=== PATIENT | male | born 1930 | race Caucasian/White ===

== ENCOUNTER 2018-02-27 10:22 | Inpatient (IN) ==
--- NOTE | 2018-02-27 10:44 | ED ---
HPI General Chief complaint: Respiratory Symptoms Stated complaint: Dr Sent/Sob Time Seen by Provider: 02/27/18 10:41 Source: patient and family Mode of arrival: ambulatory Limitations: no limitations History of Present Illness HPI narrative: 88-year-old male with history of CAD, CABG, hypertension, CHF, sent in from the [place] clinic for evaluation of shortness of breath and worsening bilateral lower extremity edema. Symptoms have been progressing over the last 2 weeks, worse today. Patient feels short of breath at rest, worse with exertion. He is also having orthopnea and complains of fullness to his abdomen. He denies chest pain. He has had a cough productive of yellowish sputum. No hemoptysis. He is unsure if he has had a fever. Related Data Home Medications Medication Instructions Recorded Confirmed aspirin 81 mg PO DAILY 02/27/18 02/27/18 brimonidine 1 drp OPHTHALMIC (EYE) BID 02/27/18 02/27/18 carvedilol 6.25 mg PO BID 02/27/18 02/27/18 ferrous sulfate 325 mg PO DAILY 02/27/18 02/27/18 finasteride 5 mg PO DAILY 02/27/18 02/27/18 furosemide 40 mg PO DAILY 02/27/18 02/27/18 latanoprost 1 drp OPHTHALMIC (EYE) QPM 02/27/18 02/27/18 [id number]-lycopen-lutein 1 tab PO DAILY 02/27/18 02/27/18 [Centrum Silver Men] potassium chloride 10 meq PO DAILY 02/27/18 02/27/18 potassium gluconate 550 mg PO DAILY 02/27/18 02/27/18 simvastatin 80 mg PO QPM 02/27/18 02/27/18 tamsulosin 0.4 mg PO DAILY 02/27/18 02/27/18 Allergies Allergy/AdvReac Type Severity Reaction Status Date / Time lisinopril [From Zestril] Allergy Swelling Verified 02/27/18 10:45 Penicillins Allergy Hives Verified 02/27/18 10:29 Review of Systems ROS: all other systems reviewed are negative [facility] Medical History Medical History CAD (coronary artery disease) (Acute) CHF (congestive heart failure) (Acute) Surgical History Surgical History H/O: hemorrhoidectomy (Acute) History of prostate surgery (Acute) Hx of cardiac cath (Acute) S/P CABG x 4 (Acute) S/P wrist surgery (Acute) Social History Social History Substance History: No History of Abuse Second Hand Smoke Exposure: No Smoking Status: Never smoker How Often Do You Have a Drink Containing Alcohol: Never Recent Travel in [facility] within the Last 8 Weeks: No Recent Out of Country Travel within the Last 8 Weeks: No Exam Narrative Exam Narrative: GENERAL: Well-developed, well-nourished, awake, alert, no apparent distress. SKIN: Focused skin assessment warm/dry. Healed midline/vertical chest surgical scar from CABG with keloid. There is also a horizontal scar just inferior to the scar that is well-healed. HEAD: Atraumatic. Normocephalic. EYES: Pupils equal and round. No scleral icterus. No injection or drainage. ENT: No nasal bleeding or discharge. Mucous membranes pink and moist. NECK: Trachea midline. No JVD. CARDIOVASCULAR: Regular rate and rhythm. RESPIRATORY: No accessory muscle use. Clear to auscultation. Breath sounds equal bilaterally. GASTROINTESTINAL: Abdomen soft, non-tender, nondistended. MUSCULOSKELETAL: No obvious deformities. No clubbing. No cyanosis. Moderate bilateral lower extremity edema from foot to knee. NEUROLOGICAL: Awake and alert. No obvious cranial nerve deficits. Motor grossly within normal limits. Normal speech. PSYCHIATRIC: Appropriate mood and affect; insight and judgment normal. Course Initial Documented Vital Signs Temperature 97.3 F L 02/27/18 10:27 Pulse Rate 74 02/27/18 10:27 Respiratory Rate 20 02/27/18 10:27 Blood Pressure 106/51 L 02/27/18 10:27 Pulse Oximetry 95 02/27/18 10:27 Last Documented Vital Signs Temperature 97.3 F L 02/27/18 10:27 Pulse Rate 64 02/27/18 11:30 Respiratory Rate 16 02/27/18 11:30 Blood Pressure 142/94 H 02/27/18 11:30 Pulse Oximetry 98 02/27/18 11:30 Medical Decision Making MDM Narrative Medical decision making narrative: Vital signs reviewed. CBC shows slightly elevated MCV. CMP is remarkable for slight renal insufficiency. His LFTs are also slightly elevated, likely secondary to hepatic congestion from CHF. Troponin is 0.04. CK-MB is 349. BNP is 1458. Chest x-ray: CONCLUSION: Moderate cardiomegaly with no evidence of pulmonary edema. While on the monitor the patient's heart rate fluctuates between the 20s to the 60s. His EKG shows A. fib with slow ventricular response with a rate of 56 with a variant conduction. Patient is unaware of a previous diagnosis of atrial fibrillation. The patient' s son is here and tells me that he has been weaker than usual. This weakness is generalized. He also becomes very short of breath on exertion. Patient's A. fib with slow RVR as well as history of CHF are the most likely causes for his symptoms on presentation today. He will be given a dose of IV Lasix 40 mg and will be admitted for further treatment and evaluation and likely cardiology assessment. He is amenable to this plan. Case discussed with the medical residents. The patient will be admitted to their service under Dr. Castaneda. Medical Screen Exam Complete: Yes Emergency Medical Condition: Yes Differential Diagnosis Differential Diagnosis: CHF/pulmonary edema, pneumonia, PE, pneumothorax, ACS, Lab Data Result diagrams: 02/27/18 10:45 02/27/18 10:45 Lab Results 02/27/18 02/27/18 02/27/18 Range/Units 10:45 10:45 10:45 WBC 5.5 (4.0-11.0) th/mm3 RBC 4.84 (4.50-5.90) mil/mm3 Hgb 16.7 (13.0-17.0) gm/dL Hct 49.4 (39.0-51.0) % MCV 102.0 H (80.0-100.0) fL MCH 34.4 H (27.0-34.0) pg MCHC 33.8 (32.0-36.0) % RDW 16.9 (11.6-17.2) % Plt Count 91 L (150-450) th/mm3 MPV 10.6 (7.0-11.0) fL Prelim Diff (Auto) Slide review pending Neut % (Auto) 75.6 H (16.0-70.0) % Lymph % (Auto) 14.1 (9.0-44.0) % Holt % (Auto) 7.8 (0.0-8.0) % Eos % (Auto) 1.7 (0.0-4.0) % Baso % (Auto) 0.8 (0.0-2.0) % Neut # (Auto) 4.2 (1.8-7.7) th/mm3 Lymph # (Auto) 0.8 L (1.0-4.8) th/mm3 Holt # (Auto) 0.4 (0.0-0.9) th/mm3 Eos # (Auto) 0.1 (0.0-0.4) th/mm3 Baso # (Auto) 0.0 (0.0-0.2) th/mm3 Differential Comment . PT 14.0 H (9.8-11.6) sec INR 1.4 Ratio APTT 30.7 (23.4-31.7) sec Sodium 136 (136-145) meq/L Potassium 3.6 (3.5-5.1) meq/L Chloride 101 (98-107) meq/L Carbon Dioxide 26.4 (21.0-32.0) meq/L Anion Gap 9 (5-15) meq/L BUN 27 H (7-18) mg/dL Creatinine 1.61 H (0.60-1.30) mg/dL Estimated GFR 41 L (>89) mL/min Random Glucose 119 H (74-106) mg/dL Calcium 8.5 (8.5-10.1) mg/dL Total Bilirubin 1.9 H (0.2-1.0) mg/dL AST 64 H (15-37) U/L ALT 49 (12-78) U/L Alkaline Phosphatase 230 H (45-117) U/L Total Creatine Kinase 349 H (39-308) U/L CK-MB (CK-2) 7.3 H (0.5-3.6) ng/mL CK-MB (CK-2) % 2.1 (0.0-4.0) % Troponin I 0.04 (0.02-0.05) ng/mL B-Natriuretic Peptide (0-100) pg/mL Total Protein 7.5 (6.4-8.2) g/dL Albumin 3.7 (3.4-5.0) g/dL Lipase 145 (73-393) U/L 02/27/18 Range/Units 10:45 WBC (4.0-11.0) th/mm3 RBC (4.50-5.90) mil/mm3 Hgb (13.0-17.0) gm/dL Hct (39.0-51.0) % MCV (80.0-100.0) fL MCH (27.0-34.0) pg MCHC (32.0-36.0) % RDW (11.6-17.2) % Plt Count (150-450) th/mm3 MPV (7.0-11.0) fL Prelim Diff (Auto) Neut % (Auto) (16.0-70.0) % Lymph % (Auto) (9.0-44.0) % Holt % (Auto) (0.0-8.0) % Eos % (Auto) (0.0-4.0) % Baso % (Auto) (0.0-2.0) % Neut # (Auto) (1.8-7.7) th/mm3 Lymph # (Auto) (1.0-4.8) th/mm3 Holt # (Auto) (0.0-0.9) th/mm3 Eos # (Auto) (0.0-0.4) th/mm3 Baso # (Auto) (0.0-0.2) th/mm3 Differential Comment PT (9.8-11.6) sec INR Ratio APTT (23.4-31.7) sec Sodium (136-145) meq/L Potassium (3.5-5.1) meq/L Chloride (98-107) meq/L Carbon Dioxide (21.0-32.0) meq/L Anion Gap (5-15) meq/L BUN (7-18) mg/dL Creatinine (0.60-1.30) mg/dL Estimated GFR (>89) mL/min Random Glucose (74-106) mg/dL Calcium (8.5-10.1) mg/dL Total Bilirubin (0.2-1.0) mg/dL AST (15-37) U/L ALT (12-78) U/L Alkaline Phosphatase (45-117) U/L Total Creatine Kinase (39-308) U/L CK-MB (CK-2) (0.5-3.6) ng/mL CK-MB (CK-2) % (0.0-4.0) % Troponin I (0.02-0.05) ng/mL B-Natriuretic Peptide 1438 H (0-100) pg/mL Total Protein (6.4-8.2) g/dL Albumin (3.4-5.0) g/dL Lipase (73-393) U/L Imaging Data Radiologist's impression: Chest X-Ray 02/27/18 10:41 CONCLUSION: Moderate cardiomegaly with no evidence of pulmonary edema. ECG Data Attestation: I personally reviewed and interpreted this ECG as follows: (A. fib , rate 56, aberrant conduction, intraventricular conduction delay, no acute ischemic abnormalities.) Discharge Plan Discharge Disposition Patient Disposition: ED Admit(ED Internal Use Only) Discharge Condition Condition: Stable Discharge Order Discharge Orders: ED Use Only Admit Order (Routine); Ordered 02/27/18 Ordered By: Michael Pierre Discharge Details Diagnosis: CHF exacerbation, Atrial fibrillation with slow ventricular response Physicians Team ED Provider: Michael Pierre Rxs /Orders / Referrals /Forms Prescriptions: No Action furosemide 40 mg Tablet 40 mg PO DAILY RF: 0 latanoprost 0.005 % Drops 1 drp OPHTHALMIC (EYE) QPM RF: 0 carvedilol 6.25 mg Tablet 6.25 mg PO BID RF: 0 simvastatin 80 mg Tablet 80 mg PO QPM RF: 0 brimonidine 0.2 % Drops 1 drp OPHTHALMIC (EYE) BID RF: 0 finasteride 5 mg Tablet 5 mg PO DAILY RF: 0 tamsulosin 0.4 mg Capsule 0.4 mg PO DAILY RF: 0 ferrous sulfate 325 mg (65 mg iron) Tablet 325 mg PO DAILY RF: 0 aspirin 81 mg Tablet,Chewable 81 mg PO DAILY RF: 0 potassium gluconate 550 mg (90 mg) Tablet 550 mg PO DAILY RF: 0 [id number]-WU-lycopen-lutein [Centrum Silver Men] 300-600-300 mcg Tablet 1 tab PO DAILY RF: 0 potassium chloride 10 mEq Capsule, Extended Release 10 meq PO DAILY RF: 0 Status ED Status: With Doctor
--- NOTE | 2018-02-27 11:17 | XR ---
EXAM DATE: 02/27/2018 11:13 AM EST AGE/SEX: 88 years / Male INDICATIONS: Short of breath, fluid retention in abdomen and lower legs. CLINICAL DATA: This is the patient's initial encounter. Patient reports that signs and symptoms have been present for 1 week and indicates a pain score of 4/10. MEDICAL/SURGICAL HISTORY: . CHF CABG. COMPARISON: No prior exams available for comparison. FINDINGS: A single AP erect portable view of the chest was obtained and demonstrates the patient is status post median sternotomy. Moderate cardiomegaly is noted with no confluent infiltrates or evidence of pulmo nary edema. Atherosclerotic changes are present in the aorta with calcification. There is no effusion . The bony thorax is otherwise intact with overlying electrocardiogram leads. CONCLUSION: Moderate cardiomegaly with no evidence of pulmonary edema. Electronically signed by: Gal Curry MD 02/27/2018 11:16 AM EST
[2018-02-27 11:32] LABS: Baso % (Auto) 0.8 % (0.0-2.0); Eos # (Auto) 0.1 th/mm3 (0.0-0.4); Eos % (Auto) 1.7 % (0.0-4.0); Hematocrit 49.4 % (39.0-51.0); Hemoglobin 16.7 gm/dL (13.0-17.0); Lymph # (Auto) 0.8 th/mm3 (1.0-4.8); Lymph % (Auto) 14.1 % (9.0-44.0); Mean Corpuscular HGB Conc 33.8 % (32.0-36.0); Mean Corpuscular Hemoglobin 34.4 pg (27.0-34.0); Mean Platelet Volume 10.6 fL (7.0-11.0); Mono # (Auto) 0.4 th/mm3 (0.0-0.9); Mono % (Auto) 7.8 % (0.0-8.0); Neut # (Auto) 4.2 th/mm3 (1.8-7.7); Neut % (Auto) 75.6 % (16.0-70.0); Platelet Count 91 th/mm3 (150-450); Red Blood Count 4.84 mil/mm3 (4.50-5.90); Red Cell Distribution Width 16.9 % (11.6-17.2); White Blood Count 5.5 th/mm3 (4.0-11.0)
[2018-02-27 11:40] LABS: Activated Partial Thrombo Time 30.7 sec (23.4-31.7); INR 1.4 Ratio
[2018-02-27 11:47] LABS: Albumin 3.7 g/dL (3.4-5.0); Anion Gap 9 meq/L (5-15); Aspartate Aminotransferase 64 U/L (15-37); Blood Urea Nitrogen 27 mg/dL (7-18); Calcium 8.5 mg/dL (8.5-10.1); Carbon Dioxide 26.4 meq/L (21.0-32.0); Chloride 101 meq/L (98-107); Glomerular Filtration Rate 41 mL/min (>89); Glucose,Random 119 mg/dL (74-106); Lipase 145 U/L (73-393); Potassium 3.6 meq/L (3.5-5.1); Sodium 136 meq/L (136-145)
[2018-02-27 11:48] LABS: Alanine Aminotransferase 49 U/L (12-78)
[2018-02-27 11:52] LABS: Alkaline Phosphatase 230 U/L (45-117); Creatine Kinase 349 U/L (39-308); Total Protein 7.5 g/dL (6.4-8.2); Troponin I 0.04 ng/mL (0.02-0.05)
[2018-02-27 12:05] LABS: CKMB Percent 2.1 % (0.0-4.0); Creatine Kinase MB 7.3 ng/mL (0.5-3.6)
--- NOTE | 2018-02-27 12:42 | P.HPFP ---
History of Present Illness Primary Care Physician: Harrison Guerrero <Brittney Castelan Gabriela - 03/01/18 09:29> Harrison Guerrero <Madonna Quach - 02/27/18 12:41> History of Present Illness: 88 year old male presents with SOB that started several weeks ago around michelle. He started having leg swelling over these weeks but last night the swelling extended to his thighs and abdomens. He also had weight gain of 15 lbs in the past couple of weeks. He notices that he becomes SOB when he walks and when he sits up he notices more abdominal distention. Unable to sleep on his back, only sleeps on his left or ride side with one pillow. Coughs up yellowish phlegm occasionally. No fevers. He has been taking his Lasix 40 mg daily but he has decreased in urinary output. Denies any problems starting or maintaining a stream. Says that his urinary frequency has decreased as well. Urinary frequency has decreased from 6 times a day to 2 times a day. Denies any blood in the urine. Normally urinates twice as night and this has not changed. Denies any CP but confirms abdominal swelling. Denies any leg pain, just discomfort from swelling. Moved from [place] a year ago and saw a general road production manager every 6 months but has not seen one since then. PCP: trying to find one in [place]. PMH: BPH, Hyperlipidemia, irregular heart rate, glaucoma, CHF PSH: Open Heart Surgery, two prostate surgeries, hemorrhoids removal. A: Penicillin ( hives), Lisinopril ( angioedema) Meds: reconciled. Takes 1/2 of his carvedilol in the morning and the other half at night for a total of 6.25 mg daily. Social Hx: lives in an apartment complex alone. Denies smoking of cigarettes, denies alcohol use, no drug use. Recently flew to [place] July of this year. Drove to [place] ( 8 hour trip). Retired. Fam Hx: Brother had cancer ( unsure of which one). Son has Afib with mitral heart valve recently fixed. <Madonna Quach - 02/27/18 23:34> - Diagnosis (1) CHF exacerbation (2) Atrial fibrillation with slow ventricular response (3) Elevated serum creatinine (4) Subclinical hypothyroidism (5) Glaucoma (6) Thrombocytopenia (7) DVT prophylaxis (8) Nutrition, metabolism, and development symptoms <JessietarynBrittney Gabriela 03/01/18 09:29> (1) CHF exacerbation (2) Atrial fibrillation with slow ventricular response (3) Diastolic murmur (4) Decreased urination (5) Edema (6) Elevated serum creatinine (7) Glaucoma (8) Elevated alkaline phosphatase level (9) Elevated CK (10) Thrombocytopenia (11) Elevated MCV (12) DVT prophylaxis (13) Nutrition, metabolism, and development symptoms <Madonna Quach 02/27/18 23:35> Inpatient Certification: I certify that the inpatient services were ordered in accordance with Medicare regulations governing the order. This includes certification that hospital inpatient services are reasonable and necessary and in the case of services not specified as inpatient-only under 42 CFR 419.22(n), that they are appropriately provided as inpatient services in accordance to with the 2-midnight benchmark under 43 CFR 412.3(e) <Brittney Castelan 03/01/18 09:29> Review of Systems Constitutional: Reports headache(s), Reports weight gain, Denies fever(s), Denies weakness <Madonna Quach 02/27/18 12:51> Eyes: Reports blurry vision <Madonna Quach 02/27/18 12:51> Cardiovascular: Reports shortness of breath with activity, Denies chest pain, Denies fast heart rate <Madonna Quach 02/27/18 12:51> Respiratory: Reports cough, Reports shortness of breath with activity, Denies wheezing <Madonna Quach 02/27/18 12:51> Gastrointestinal: Reports bloating, Denies black, tarry stools, Denies change in bowel habits, Denies change in stools, Denies heartburn, Denies nausea, Denies vomiting <Madonna Quach 02/27/18 12:51> Genitourinary: Reports decreased urination, Denies erectile dysfunction, Denies painful urination, Denies penile discharge <Madonna Quach 02/27/18 12:51> PMFSH - History History Provided By: Patient <Madonna Quach - 02/27/18 12:41> - Medical History Medical History: Medical History (Last Updated 02/27/18 @ 10:43 by [employer]) CAD (coronary artery disease) CHF (congestive heart failure) <Brittney Castelan - 03/01/18 09:29> Medical History (Last Updated 02/27/18 @ 10:43 by [employer]) CAD (coronary artery disease) CHF (congestive heart failure) <Madonna uQach - 02/27/18 12:41> - Surgical History Surgical History: Surgical History (Last Updated 02/27/18 @ 10:43 by [employer]) H/O: hemorrhoidectomy History of prostate surgery Hx of cardiac cath S/P CABG x 4 S/P wrist surgery <Brittney Castelan - 03/01/18 09:29> Surgical History (Last Updated 02/27/18 @ 10:43 by [employer]) H/O: hemorrhoidectomy History of prostate surgery Hx of cardiac cath S/P CABG x 4 S/P wrist surgery <Madonna Quach - 02/27/18 12:41> - Tobacco History Second Hand Smoke Exposure: No <Madonna Quach - 02/27/18 12:41> Tobacco Use In Past 30 Days: No <Madonna Quach - 02/27/18 12:41> Smoking Status: Never smoker <Madonna Quach - 02/27/18 12:41> - Alcohol History How Often Do You Have a Drink Containing Alcohol: Never <Madonna Quach - 02/04 12:41> - Substance Use History Substance History: No History of Abuse <Madonna Quach - 02/27/18 12:41> - Travel History Recent Travel in the [place] Within the Last 8 Weeks: No <Madonna Quach - 12:41> Recent Travel Out of the Country Within the Last 8 Weeks: No <Madonna Quach - 02/27/18 12:41> - Immunization History Tetanus Immunization: <5 Years <Madonna Quach - 02/27/18 12:41> Medications and Allergies Allergies Allergy/AdvReac Type Severity Reaction Status Date / Time lisinopril [From Zestril] Allergy Swelling Verified 02/27/18 10:45 Penicillins Allergy Hives Verified 02/27/18 10:29 <Brittney Castelan - 03/01/18 09:29> Home Medications Medication Instructions Recorded Confirmed Type aspirin 81 mg PO DAILY 02/27/18 02/27/18 History brimonidine 1 drp OPHTHALMIC (EYE) BID 02/27/18 02/27/18 History carvedilol 6.25 mg PO BID 02/27/18 02/27/18 History ferrous sulfate 325 mg PO DAILY 02/27/18 02/27/18 History finasteride 5 mg PO DAILY 02/27/18 02/27/18 History furosemide 40 mg PO DAILY 02/27/18 02/27/18 History latanoprost 1 drp OPHTHALMIC (EYE) QPM 02/27/18 02/27/18 History kfnsxovl-pem-KP-lycopen-lutein 1 tab PO DAILY 02/27/18 02/27/18 History [Centrum Silver Men] potassium chloride 10 meq PO DAILY 02/27/18 02/27/18 History potassium gluconate 550 mg PO DAILY 02/27/18 02/27/18 History simvastatin 80 mg PO QPM 02/27/18 02/27/18 History tamsulosin 0.4 mg PO DAILY 02/27/18 02/27/18 History <Brittney Castelan - 03/01/18 09:29> Active Medications: Active Medications Acetaminophen (Tylenol) 650 mg PO Q4H PRN PRN Reason: Temp > 100.4 Al Hydroxide/Mg Hydroxide (Milk Of Kaye Liq) 30 ml PO Q12H PRN PRN Reason: Mild Constipation Aspirin (Aspirin Chew) 81 mg PO DAILY [facility] Last Admin: 03/01/18 09:06 Dose: 81 mg Atorvastatin Calcium (Lipitor) 40 mg PO DAILY@1800 [facility] Last Admin: 02/28/18 17:39 Dose: 40 mg Bisacodyl (Dulcolax Supp) 10 mg RECTAL DAILY PRN PRN Reason: SEVERE CONSITIPATION Brimonidine Tartrate (Alphagan 0.2% Opth Drops) 1 drops EACH EYE BID [facility] Last Admin: 03/01/18 09:08 Dose: 1 drops Carvedilol (Coreg) 6.25 mg PO BID [facility] Last Admin: 03/01/18 09:07 Dose: 6.25 mg Dextrose (D50w Vial) 50 ml IV.PUSH UNSCH PRN PRN Reason: PER HYPOGLYCEMIA PROTOCOL Ferrous Sulfate (Ferosul) 325 mg PO DAILY [facility] Last Admin: 03/01/18 09:06 Dose: 325 mg Finasteride (Proscar) 5 mg PO DAILY [facility] Last Admin: 03/01/18 09:05 Dose: 5 mg Furosemide (Lasix Inj) 40 mg IV.PUSH DAILY [facility] Last Admin: 03/01/18 09:07 Dose: 40 mg Glucagon (Glucagon Inj) 1 mg OTHER PRN PRN PRN Reason: for Hypoglycemia Protocol Heparin Sodium/Dextrose (Heparin/D5w 25,000 U/250 Ml) 25,000 unit in 250 mls @ 10 mls/hr IV.CONT TITRATE PRN; Protocol PRN Reason: Per Protocol Last Admin: 02/28/18 22:31 Dose: 800 units/hr, 8 mls/hr Insulin Aspart (Novolog Insulin Correctional Sugar Inj) 0 unit SQ ACHS [facility]; Protocol Last Admin: 03/01/18 08:28 Dose: Not Given Lactulose (Lactulose Liq) 30 ml PO DAILY PRN PRN Reason: SEVERE CONSITIPATION Latanoprost (Xalatan 0.005% Opth Drops) 1 drop EACH EYE DAILY@1800 [facility] Last Admin: 02/28/18 17:39 Dose: 1 drop Multivitamins/Minerals (Theragran-M) 1 tab PO DAILY [facility] Last Admin: 03/01/18 09:06 Dose: 1 tab Ondansetron HCl (Zofran Inj) 4 mg IV.PUSH Q6H PRN PRN Reason: NAUSEA OR VOMITING Senna/Docusate Sodium (Mary-Colace) 1 tab PO BID [facility] Last Admin: 03/01/18 09:08 Dose: Not Given Sennosides (Senokot) 17.2 mg PO Q12H PRN PRN Reason: Moderate Constipation Sodium Chloride (Ns Flush) 2 ml IV.FLUSH BID [facility] Last Admin: 03/01/18 09:08 Dose: 2 ml Sodium Chloride (Ns Flush) 2 ml IV.FLUSH PRN PRN PRN Reason: FLUSH AFTER USING IV ACCESS Tamsulosin HCl (Flomax) 0.4 mg PO DAILY [facility] Last Admin: 03/01/18 09:05 Dose: 0.4 mg <Sierra Castelanie R - 03/01/18 09:29> Active Medications Sodium Chloride (Ns Flush) 2 ml IV.FLUSH UNSCH PRN PRN Reason: FLUSH AFTER USING IV ACCESS <Madonna Quach - 02/27/18 12:41> Exam Vital signs: Vital Signs 02/28/18 12:00 02/28/18 16:00 02/28/18 20:00 Temperature 98 F 97.7 F 98.1 F Pulse Rate 110 H 50 L 51 L Respiratory Rate 20 20 18 Blood Pressure 144/84 H 152/90 H 142/68 H Pulse Oximetry 97 97 98 02/28/18 20:30 03/01/18 00:00 03/01/18 04:00 Temperature 97.2 F L 97 F L Pulse Rate 72 58 L 52 L Respiratory Rate 19 17 Blood Pressure 120/70 142/71 H Pulse Oximetry 97 96 03/01/18 08:00 Temperature 97.1 F L Pulse Rate 61 Respiratory Rate 16 Blood Pressure 143/78 H Pulse Oximetry 98 Intake & Output 02/28/18 03/01/18 03/01/18 18:59 06:59 18:59 Intake Total 1058 / 1058 370 / 370 Output Total 1500 / 1500 900 / 900 Balance -442 / -442 -530 / -530 Weight 96.5 kg Intake: IV 98 / 98 250 / 250 Heparin/D5W 25,000 U/250 mL 25, 98 / 98 250 / 250 000 unit In 250 ml @ 1,000 UNITS/HR 10 mls/hr IV.CONT TITRATE PRN Rx#:[id number] Oral 960 / 960 120 / 120 Output: Urine 1500 / 1500 900 / 900 Other: # Voids 2 # Bowel Movements 0 <FlipBrittney R - 03/01/18 09:29> Vital Signs 02/27/18 10:27 02/27/18 10:41 02/27/18 11:30 Temperature 97.3 F L Pulse Rate 74 66 64 Respiratory Rate 20 17 16 Blood Pressure 106/51 L 117/93 H 142/94 H Pulse Oximetry 95 98 98 Intake & Output 02/26/18 02/27/18 02/27/18 18:59 06:59 18:59 Weight 97.069 kg <Madonna Quach - 02/27/18 12:41> Narrative: GENERAL: elderly appearing male, sitting upright in bed, on oxygen, in no acute distress. SKIN: Warm and dry. HEAD: Normocephalic. EYES: No scleral icterus. No injection or drainage. NECK: Supple, trachea midline. No JVD or lymphadenopathy. CARDIOVASCULAR: Regular rate and rhythm. Grade 2 out of 5 diastolic murmur appreciated at the L sternal border. No radiation auscultation. 2+ radial/pedal pulses. RESPIRATORY: Occasional crackles auscultated at the lower lobes bilaterally. No wheezes, rhonchi appreciated. GASTROINTESTINAL: Abdomen soft, non-tender, distended. MUSCULOSKELETAL: No cyanosis, 3+ pitting edema bilaterally to the thighs. BACK: Nontender without obvious deformity. No CVA tenderness. <CameliadeeptiBenson sharpeMadonna - 02/27/18 23:34> Results - Labs Result diagrams: 03/01/18 05:52 03/01/18 05:52 <Brittney Castelan - 03/01/18 09:29> Abnormal lab results 02/28/18 02/28/18 02/28/18 Range/Units 10:28 12:31 16:22 RBC (4.50-5.90) mil/mm3 RDW (11.6-17.2) % Plt Count (150-450) th/mm3 [place] % (Auto) (0.0-8.0) % Lymph # (Auto) (1.0-4.8) th/mm3 Platelet Estimate (Normal) Ovalocytes (None) APTT 57.5 H D 58.1 H 60.4 H (23.4-31.7) sec Potassium (3.5-5.1) meq/L BUN (7-18) mg/dL Creatinine (0.60-1.30) mg/dL Estimated GFR (>89) mL/min POC Glucose (68-110) mg/dl Random Glucose (74-106) mg/dL Calcium (8.5-10.1) mg/dL Total Bilirubin (0.2-1.0) mg/dL AST (15-37) U/L Alkaline Phosphatase (45-117) U/L Total Protein (6.4-8.2) g/dL Albumin (3.4-5.0) g/dL 02/28/18 02/28/18 02/28/18 Range/Units 16:22 17:12 21:10 RBC (4.50-5.90) mil/mm3 RDW (11.6-17.2) % Plt Count (150-450) th/mm3 [place] % (Auto) (0.0-8.0) % Lymph # (Auto) (1.0-4.8) th/mm3 Platelet Estimate (Normal) Ovalocytes (None) APTT (23.4-31.7) sec Potassium (3.5-5.1) meq/L BUN 26 H (7-18) mg/dL Creatinine 1.53 H (0.60-1.30) mg/dL Estimated GFR 43 L (>89) mL/min POC Glucose 175 H 154 H (68-110) mg/dl Random Glucose 192 H (74-106) mg/dL Calcium 8.2 L (8.5-10.1) mg/dL Total Bilirubin (0.2-1.0) mg/dL AST (15-37) U/L Alkaline Phosphatase (45-117) U/L Total Protein (6.4-8.2) g/dL Albumin (3.4-5.0) g/dL 03/01/18 03/01/18 03/01/18 Range/Units 05:52 05:52 05:52 RBC 4.44 L (4.50-5.90) mil/mm3 RDW 17.4 H (11.6-17.2) % Plt Count 96 L (150-450) th/mm3 [place] % (Auto) 11.3 H (0.0-8.0) % Lymph # (Auto) 0.8 L (1.0-4.8) th/mm3 Platelet Estimate Low L (Normal) Ovalocytes 1+ H (None) APTT 62.3 H (23.4-31.7) sec Potassium 3.4 L (3.5-5.1) meq/L BUN 28 H (7-18) mg/dL Creatinine 1.39 H (0.60-1.30) mg/dL Estimated GFR 48 L (>89) mL/min POC Glucose (68-110) mg/dl Random Glucose (74-106) mg/dL Calcium 8.1 L (8.5-10.1) mg/dL Total Bilirubin 2.0 H (0.2-1.0) mg/dL AST 42 H (15-37) U/L Alkaline Phosphatase 174 H (45-117) U/L Total Protein 5.9 L (6.4-8.2) g/dL Albumin 2.8 L (3.4-5.0) g/dL Short CBC 03/01/18 Range/Units 05:52 WBC 5.0 (4.0-11.0) th/mm3 Hgb 14.8 (13.0-17.0) gm/dL Hct 43.9 (39.0-51.0) % Plt Count 96 L (150-450) th/mm3 BMP 02/28/18 03/01/18 16:22 05:52 Sodium 138 139 Potassium 3.5 3.4 L Chloride 101 102 Carbon Dioxide 27.8 29.6 BUN 26 H 28 H Creatinine 1.53 H 1.39 H Calcium 8.2 L 8.1 L Liver Function 03/01/18 Range/Units 05:52 Total Bilirubin 2.0 H (0.2-1.0) mg/dL AST 42 H (15-37) U/L ALT 34 (12-78) U/L Alkaline Phosphatase 174 H (45-117) U/L Albumin 2.8 L (3.4-5.0) g/dL <Brittney Castelan R - 03/01/18 09:29> Abnormal lab results 02/27/18 02/27/18 02/27/18 Range/Units 10:45 10:45 10:45 MCV 102.0 H (80.0-100.0) fL MCH 34.4 H (27.0-34.0) pg Plt Count 91 L (150-450) th/mm3 Neut % (Auto) 75.6 H (16.0-70.0) % Lymph # (Auto) 0.8 L (1.0-4.8) th/mm3 PT 14.0 H (9.8-11.6) sec BUN 27 H (7-18) mg/dL Creatinine 1.61 H (0.60-1.30) mg/dL Estimated GFR 41 L (>89) mL/min Random Glucose 119 H (74-106) mg/dL Total Bilirubin 1.9 H (0.2-1.0) mg/dL AST 64 H (15-37) U/L Alkaline Phosphatase 230 H (45-117) U/L Total Creatine Kinase 349 H (39-308) U/L CK-MB (CK-2) 7.3 H (0.5-3.6) ng/mL B-Natriuretic Peptide (0-100) pg/mL 02/27/18 Range/Units 10:45 MCV (80.0-100.0) fL MCH (27.0-34.0) pg Plt Count (150-450) th/mm3 Neut % (Auto) (16.0-70.0) % Lymph # (Auto) (1.0-4.8) th/mm3 PT (9.8-11.6) sec BUN (7-18) mg/dL Creatinine (0.60-1.30) mg/dL Estimated GFR (>89) mL/min Random Glucose (74-106) mg/dL Total Bilirubin (0.2-1.0) mg/dL AST (15-37) U/L Alkaline Phosphatase (45-117) U/L Total Creatine Kinase (39-308) U/L CK-MB (CK-2) (0.5-3.6) ng/mL B-Natriuretic Peptide 1438 H (0-100) pg/mL Short CBC 02/27/18 Range/Units 10:45 WBC 5.5 (4.0-11.0) th/mm3 Hgb 16.7 (13.0-17.0) gm/dL Hct 49.4 (39.0-51.0) % Plt Count 91 L (150-450) th/mm3 BMP 02/27/18 10:45 Sodium 136 Potassium 3.6 Chloride 101 Carbon Dioxide 26.4 BUN 27 H Creatinine 1.61 H Calcium 8.5 Cardiac Enzymes 02/27/18 Range/Units 10:45 Total Creatine Kinase 349 H (39-308) U/L CK-MB (CK-2) 7.3 H (0.5-3.6) ng/mL Troponin I 0.04 (0.02-0.05) ng/mL Liver Function 02/27/18 Range/Units 10:45 Total Bilirubin 1.9 H (0.2-1.0) mg/dL AST 64 H (15-37) U/L ALT 49 (12-78) U/L Alkaline Phosphatase 230 H (45-117) U/L Albumin 3.7 (3.4-5.0) g/dL <Madonna Quach - 02/27/18 12:41> - Imaging Impressions Chest X-Ray 02/27/18 10:41 CONCLUSION: Moderate cardiomegaly with no evidence of pulmonary edema. <Madonna Quach - 02/27/18 12:41> Caprini VTE Risk Assessment Caprini VTE Risk Assessment: Moderate/High Risk (score >= 2) <Madonna Quach - 02/27/18 14:42> Caprini Risk Assessment Model: Point Value = 1 Point Value = 2 Point Value = 3 Point Value = 5 Age 41-60 Minor surgery BMI > 25 kg/m2 Swollen legs Varicose veins or History of unexplained or recurrent spontaneous Oral contraceptives or hormone replacement Sepsis (< 1 month) Serious lung disease, including pneumonia (< 1 month) Abnormal pulmonary function Acute myocardial infarction Congestive heart failure (< 1 month) History of inflammatory bowel disease Medical patient at bed rest Age 61-74 Arthroscopic surgery Major open surgery (> 45 min) Laparoscopic surgery (> 45 min) Malignancy Confined to bed (> 72 hours) Immobilizing plaster cast Central venous access Age >= 75 History of VTE Family history of VTE Factor V Leiden Prothrombin [id number] Lupus anticoagulant Anticardiolipin antibodies Elevated serum homocysteine Heparin-induced thrombocytopenia Other congenital or acquired thrombophilia Stroke (< 1 month) Elective arthroplasty Hip, pelvis, or leg fracture Acute spinal cord injury (< 1 month) <Brittney Castelan - 03/01/18 09:29> Point Value = 1 Point Value = 2 Point Value = 3 Point Value = 5 Age 41-60 Minor surgery BMI > 25 kg/m2 Swollen legs Varicose veins or History of unexplained or recurrent spontaneous Oral contraceptives or hormone replacement Sepsis (< 1 month) Serious lung disease, including pneumonia (< 1 month) Abnormal pulmonary function Acute myocardial infarction Congestive heart failure (< 1 month) History of inflammatory bowel disease Medical patient at bed rest Age 61-74 Arthroscopic surgery Major open surgery (> 45 min) Laparoscopic surgery (> 45 min) Malignancy Confined to bed (> 72 hours) Immobilizing plaster cast Central venous access Age >= 75 History of VTE Family history of VTE Factor V Leiden Prothrombin [id number] Lupus anticoagulant Anticardiolipin antibodies Elevated serum homocysteine Heparin-induced thrombocytopenia Other congenital or acquired thrombophilia Stroke (< 1 month) Elective arthroplasty Hip, pelvis, or leg fracture Acute spinal cord injury (< 1 month) <Madonna Quach - 02/27/18 12:41> Prophylaxis Regimen: Total Risk Factor Score Risk Level Prophylaxis Regimen 0-1 Low Early ambulation 2 Moderate Order ONE of the following: *Sequential Compression Device (SCD) *Heparin 5000 units SQ BID 3-4 Higher Order ONE of the following medications: *Heparin 5000 units SQ TID *Enoxaparin/Lovenox 40 mg SQ daily (WT < 150 kg, CrCl > 30 mL/min) *Enoxaparin/Lovenox 30 mg SQ daily (WT < 150 kg, CrCl > 10-29 mL/min) *Enoxaparin/Lovenox 30 mg SQ BID (WT < 150 kg, CrCl > 30 mL/min) AND/OR *Sequential Compression Device (SCD) 5 or more Highest Order ONE of the following medications: *Heparin 5000 units SQ TID (Preferred with Epidurals) *Enoxaparin/Lovenox 40 mg SQ daily (WT < 150 kg, CrCl > 30 mL/min) *Enoxaparin/Lovenox 30 mg SQ daily (WT < 150 kg, CrCl > 10-29 mL/min) *Enoxaparin/Lovenox 30 mg SQ BID (WT < 150 kg, CrCl > 30 mL/min) AND *Sequential Compression Device (SCD) <Brittney Castelan - 03/01/18 09:29> Total Risk Factor Score Risk Level Prophylaxis Regimen 0-1 Low Early ambulation 2 Moderate Order ONE of the following: *Sequential Compression Device (SCD) *Heparin 5000 units SQ BID 3-4 Higher Order ONE of the following medications: *Heparin 5000 units SQ TID *Enoxaparin/Lovenox 40 mg SQ daily (WT < 150 kg, CrCl > 30 mL/min) *Enoxaparin/Lovenox 30 mg SQ daily (WT < 150 kg, CrCl > 10-29 mL/min) *Enoxaparin/Lovenox 30 mg SQ BID (WT < 150 kg, CrCl > 30 mL/min) AND/OR *Sequential Compression Device (SCD) 5 or more Highest Order ONE of the following medications: *Heparin 5000 units SQ TID (Preferred with Epidurals) *Enoxaparin/Lovenox 40 mg SQ daily (WT < 150 kg, CrCl > 30 mL/min) *Enoxaparin/Lovenox 30 mg SQ daily (WT < 150 kg, CrCl > 10-29 mL/min) *Enoxaparin/Lovenox 30 mg SQ BID (WT < 150 kg, CrCl > 30 mL/min) AND *Sequential Compression Device (SCD) <Madonna Quach - 02/27/18 12:41> Assessment and Plan - Assessment (1) CHF exacerbation Code(s): I50.9 - Heart failure, unspecified Status: Chronic (2) Atrial fibrillation with slow ventricular response Code(s): I48.91 - Unspecified atrial fibrillation Status: Acute (3) Elevated serum creatinine Code(s): R79.89 - Other specified abnormal findings of blood chemistry Status : Acute (4) Subclinical hypothyroidism Code(s): E03.9 - Hypothyroidism, unspecified Status: Acute (5) Glaucoma Code(s): H40.9 - Unspecified glaucoma Status: Acute (6) Thrombocytopenia Code(s): D69.6 - Thrombocytopenia, unspecified Status: Acute (7) DVT prophylaxis Status: Acute (8) Nutrition, metabolism, and development symptoms Code(s): R63.8 - Other symptoms and signs concerning food and fluid intake Status: Acute <Brittney Castelan - 03/01/18 09:29> (1) CHF exacerbation Code(s): I50.9 - Heart failure, unspecified Status: Acute Plan: 88-year-old male with shortness of breath for the past couple weeks, decreased urinary output, decreased urinary frequency, pedal edema and abdominal distention. Recent prolonged travel. Denies any fevers, cough, leg pain, good bowel movements. History of cardiac disease. DDX: CHF exacerbation, versus acute kidney injury versus worsening CKD versus BPH versus PE versus cardiac etiology. Chest x-ray shows: Moderate cardiomegaly, no evidence of pulmonary edema. BNP elevated at 1438. More likely CHF picture. Lasix 40 mg IV given in the ED. Strict I&O's. If patient urinary output does not increase status post 40 mg Lasix will consider bladder U/S and straight cath to rule out any obstruction. EKG shows: Afib with slow ventricular response. Trend q6. Diastolic murmur auscultated. Echocardiogram ordered TSH, lipid panel, A1c ordered. Follow-up. Fluid restrictions to 1.5 L daily. CKMB: 7.3 on admission, trend q6 Troponins 0.04, trend q6. Cardiology consulted due to patient's afib with slow ventricular response/ bradycardia. Will hold home dose of carvedilol since patient is bradycardic. Continue home aspirin and Lipitor. (2) Atrial fibrillation with slow ventricular response Code(s): I48.91 - Unspecified atrial fibrillation Status: Acute Plan: See plan above. Heparin Drip per cardiology (3) Diastolic murmur Code(s): I38 - Endocarditis, valve unspecified Status: Deleted Plan: Echocardiogram ordered. Cardiology Consulted. (4) Decreased urination Code(s): R34 - Anuria and oliguria Status: Acute Plan: Could be secondary to worsening CKD vs BPH I&Os s/p IV lasix UA ordered to rule out any UTI Consider straight cath/bladder scan if patients output it minimal. (5) Edema Code(s): R60.9 - Edema, unspecified Status: Acute Plan: Secondary to CHF exacerbation Strict I&Os Lasix 40 mg IV given in ED. Switch to PO in AM. (6) Elevated serum creatinine Code(s): R79.89 - Other specified abnormal findings of blood chemistry Status : Acute Plan: Unsure if this is his baseline. Will hold off of nephrotoxic drugs. Monitor status with IV lasix. Continue to trend Cr (7) Glaucoma Code(s): H40.9 - Unspecified glaucoma Status: Acute Plan: Continue home medications (8) Elevated alkaline phosphatase level Code(s): R74.8 - Abnormal levels of other serum enzymes Status: Acute Plan: LFTS stable Trend in AM. (9) Elevated CK Code(s): R74.8 - Abnormal levels of other serum enzymes Status: Acute Plan: Elevated at 349. UA ordered. Follow-up Trending CK-MB, troponins, EKGs. (10) Thrombocytopenia Code(s): D69.6 - Thrombocytopenia, unspecified Status: Acute Plan: Platelet count 91. continue to monitor. (11) Elevated MCV Code(s): R71.8 - Other abnormality of red blood cells Status: Acute Plan: MCV 102 but normal Hgb Folate and B12 ordered. (12) DVT prophylaxis Status: Acute Plan: Heparin drip per cardiology Continue to monitor platelets. (13) Nutrition, metabolism, and development symptoms Code(s): R63.8 - Other symptoms and signs concerning food and fluid intake Status: Acute Plan: Fluids: Encourage PO intake. None due to CHF. Electrolyes: Monitor and replete as needed Nutrtion: Cardiac diet DNR/DNI <Madonna Quach - 02/27/18 23:35> - Assessment and Plan 88-year-old male with past medical history of hyperlipidemia, CHF, irregular heartbeat presents with shortness of breath for the past couple weeks with a associated pedal edema that increased to his abdomen and associated decreased urinary output and frequency. Admitted for CHF exacerbation with elevated BNP. Patient found to be in A. fib with slow ventricular response. Cardiology consulted. <Madonna Quach - 02/27/18 15:36> - Attending Attestation Patient seen and dw resident team at the time of admission. Agree with assessment and plan as written <Brittney Castelan - 03/01/18 09:29> <Madonna Quach - Last Filed: 02/27/18 23:35> (1) CHF exacerbation Qualifiers: Heart failure type: unspecified Qualified Code(s): I50.9 - Heart failure, unspecified <Brittney Castelan - Last Filed: 03/01/18 09:29> (1) CHF exacerbation Qualifiers: Heart failure type: systolic Qualified Code(s): I50.23 - Acute on chronic systolic (congestive) heart failure <Madonna Quach - Last Filed: 02/27/18 23:35> (1) CHF exacerbation Qualifiers: Heart failure type: unspecified Qualified Code(s): I50.9 - Heart failure, unspecified <Brittney Castelan - Last Filed: 03/01/18 09:29> (1) CHF exacerbation Qualifiers: Heart failure type: systolic Qualified Code(s): I50.23 - Acute on chronic systolic (congestive) heart failure
[2018-02-27] MEDS ORDERED: Acetaminophen 325 MG Tablet PO PRN (13:25)
[2018-02-27] MEDS ORDERED: Bisacodyl 10 MG Supp RECTAL PRN (13:25)
[2018-02-27] MEDS ORDERED: Enoxaparin Inj 30 MG/0.3 ML Syringe SQ SCH (13:30)
[2018-02-27 14:59] LABS: Troponin I 0.03 ng/mL (0.02-0.05)
[2018-02-27 15:59] LABS: Cholesterol 76 mg/dL (120-200); Triglycerides 63 mg/dL (42-150)
[2018-02-27 16:24] LABS: Chol/HDL Ratio 2.34 Ratio; Free T4 (Free Thyroxine) 0.92 ng/dL (0.76-1.46); HDL Cholesterol 32.4 mg/dL (40.0-60.0); LDL Cholesterol,Calculated 31 mg/dL (0-99)
[2018-02-27 17:11] LABS: Hemoglobin A1c 7.6 % (4.3-6.0)
--- NOTE | 2018-02-27 18:15 | P.CONCA ---
History of Present Illness Service: Cardiology Consult date: 02/27/18 Reason for Consult: CHF, bradycardia Primary Care Provider: Harrison Guerrero History of Present Illness: This is a 88-year-old male with a past medical history of coronary artery disease, CABG X 4 in 2000 CHF, hypertension, enlarged prostate and type 2 DM. He has been developing increase in shortness of breath since . He states that he noticed he was developing increase swelling in his lower extremities and shortness of breath with any activity. He stated that the swelling extended into this thighs and abdomen last night. He also was unable to lay down to sleep due to the difficulty breathing and pressure in his abdomen from the fluid. He states that he takes Lasix but has noticed his urination has became less over the last few weeks. He went to the OR for an eye exam this morning and was told to come to the Emergency Department for further evaluation. He denies any CP, pressure, palpitations or dizziness. He does complain of increase SOB. Review of Systems All other systems reviewed negative except as stated in HPI [facility] - History History Provided By: Patient - Medical History Medical History: Medical History (Last Updated 02/27/18 @ 10:43 by [email or web address]) CAD (coronary artery disease) CHF (congestive heart failure) - Surgical History Surgical History: Surgical History (Last Updated 02/27/18 @ 10:43 by [email or web address]) H/O: hemorrhoidectomy History of prostate surgery Hx of cardiac cath S/P CABG x 4 S/P wrist surgery - Tobacco History Second Hand Smoke Exposure: No Tobacco Use In Past 30 Days: No Smoking Status: Never smoker - Alcohol History How Often Do You Have a Drink Containing Alcohol: Never - Substance Use History Substance History: No History of Abuse - Travel History Recent Travel in the [facility] Within the Last 8 Weeks: No Recent Travel Out of the Country Within the Last 8 Weeks: No - Immunization History Tetanus Immunization: <5 Years Medications and Allergies Allergies Allergy/AdvReac Type Severity Reaction Status Date / Time lisinopril [From Zestril] Allergy Swelling Verified 02/27/18 10:45 Penicillins Allergy Hives Verified 02/27/18 10:29 Home Medications Medication Instructions Recorded Confirmed Type aspirin 81 mg PO DAILY 02/27/18 02/27/18 History brimonidine 1 drp OPHTHALMIC (EYE) BID 02/27/18 02/27/18 History carvedilol 6.25 mg PO BID 02/27/18 02/27/18 History ferrous sulfate 325 mg PO DAILY 02/27/18 02/27/18 History finasteride 5 mg PO DAILY 02/27/18 02/27/18 History furosemide 40 mg PO DAILY 02/27/18 02/27/18 History latanoprost 1 drp OPHTHALMIC (EYE) QPM 02/27/18 02/27/18 History zhszxxqk-bls-PV-lycopen-lutein 1 tab PO DAILY 02/27/18 02/27/18 History [Centrum Silver Men] potassium chloride 10 meq PO DAILY 02/27/18 02/27/18 History potassium gluconate 550 mg PO DAILY 02/27/18 02/27/18 History simvastatin 80 mg PO QPM 02/27/18 02/27/18 History tamsulosin 0.4 mg PO DAILY 02/27/18 02/27/18 History Active Medications: Active Medications Acetaminophen (Tylenol) 650 mg PO Q4H PRN PRN Reason: Temp > 100.4 Al Hydroxide/Mg Hydroxide (Milk Of Magnesia Liq) 30 ml PO Q12H PRN PRN Reason: Mild Constipation Aspirin (Aspirin Chew) 81 mg PO DAILY [facility] Atorvastatin Calcium (Lipitor) 40 mg PO DAILY@1800 [facility] Bisacodyl (Dulcolax Supp) 10 mg RECTAL DAILY PRN PRN Reason: SEVERE CONSITIPATION Brimonidine Tartrate (Alphagan 0.2% Opth Drops) 1 drops EACH EYE BID [facility] Ferrous Sulfate (Ferosul) 325 mg PO DAILY [facility] Finasteride (Proscar) 5 mg PO DAILY [facility] Furosemide (Lasix Inj) 40 mg IV.PUSH DAILY [facility] Lactulose (Lactulose Liq) 30 ml PO DAILY PRN PRN Reason: SEVERE CONSITIPATION Latanoprost (Xalatan 0.005% Opth Drops) 1 drop EACH EYE DAILY@1800 [facility] Multivitamins/Minerals (Theragran-M) 1 tab PO DAILY [facility] Ondansetron HCl (Zofran Inj) 4 mg IV.PUSH Q6H PRN PRN Reason: NAUSEA OR VOMITING Senna/Docusate Sodium (Mary-Colace) 1 tab PO BID [facility] Sennosides (Senokot) 17.2 mg PO Q12H PRN PRN Reason: Moderate Constipation Sodium Chloride (Ns Flush) 2 ml IV.FLUSH BID [facility] Sodium Chloride (Ns Flush) 2 ml IV.FLUSH PRN PRN PRN Reason: FLUSH AFTER USING IV ACCESS Tamsulosin HCl (Flomax) 0.4 mg PO DAILY [facility] Exam Vital signs: Vital Signs 02/27/18 10:27 02/27/18 10:41 02/27/18 11:30 Temperature 97.3 F L Pulse Rate 74 66 64 Respiratory Rate 20 17 16 Blood Pressure 106/51 L 117/93 H 142/94 H Pulse Oximetry 95 98 98 02/27/18 15:00 02/27/18 16:08 Temperature Pulse Rate 118 H 58 L Respiratory Rate 18 Blood Pressure 125/70 134/80 Pulse Oximetry 98 Intake & Output 02/26/18 02/27/18 02/27/18 18:59 06:59 18:59 Weight 97.069 kg - Constitutional no acute distress - Routine HEENT Exam Head: Present: normocephalic Eye: Present: PERRL ENT: Present: mucous membranes moist - Routine Neck Exam Present: full ROM - Routine Respiratory Exam Present: CTA bilaterally - Routine Cardiovascular Exam Present: S1, S2, rubs, irregular rhythm. Absent: murmur, gallop - Routine Abdominal Exam Present: normoactive bowel sounds - Routine Extremities Exam Present: edema, full ROM, pulses intact, normal capillary refill. Absent: cyanosis, clubbing - Routine Skin Exam Present: intact - Routine Neurological Exam Present: oriented X3 Results 02/27/18 10:45 02/27/18 10:45 Cardiac Enzymes 02/27/18 02/27/18 02/27/18 Range/Units 10:45 10:45 14:04 AST 64 H (15-37) U/L CK-MB (CK-2) 7.3 H (0.5-3.6) ng/mL Troponin I 0.04 0.03 (0.02-0.05) ng/mL B-Natriuretic Peptide 1438 H (0-100) pg/mL Coagulation 02/27/18 02/27/18 Range/Units 10:45 10:45 PT 14.0 H (9.8-11.6) sec APTT 30.7 (23.4-31.7) sec B-Natriuretic Peptide 1438 H (0-100) pg/mL Lipids 02/27/18 Range/Units 10:45 Triglycerides 63 (42-150) mg/dL Cholesterol 76 L (120-200) mg/dL HDL Cholesterol 32.4 L (40.0-60.0) mg/dL Cholesterol/HDL Ratio 2.34 Ratio CBC 02/27/18 Range/Units 10:45 WBC 5.5 (4.0-11.0) th/mm3 RBC 4.84 (4.50-5.90) mil/mm3 Hgb 16.7 (13.0-17.0) gm/dL Hct 49.4 (39.0-51.0) % Plt Count 91 L (150-450) th/mm3 Neut # (Auto) 4.2 (1.8-7.7) th/mm3 Lymph # (Auto) 0.8 L (1.0-4.8) th/mm3 [place] # (Auto) 0.4 (0.0-0.9) th/mm3 Eos # (Auto) 0.1 (0.0-0.4) th/mm3 Baso # (Auto) 0.0 (0.0-0.2) th/mm3 Comprehensive Metabolic Panel 02/27/18 Range/Units 10:45 Sodium 136 (136-145) meq/L Potassium 3.6 (3.5-5.1) meq/L Chloride 101 (98-107) meq/L Carbon Dioxide 26.4 (21.0-32.0) meq/L BUN 27 H (7-18) mg/dL Creatinine 1.61 H (0.60-1.30) mg/dL Calcium 8.5 (8.5-10.1) mg/dL AST 64 H (15-37) U/L ALT 49 (12-78) U/L Alkaline Phosphatase 230 H (45-117) U/L Total Protein 7.5 (6.4-8.2) g/dL Albumin 3.7 (3.4-5.0) g/dL Intake and Output 02/27/18 02/27/18 02/27/18 06:59 14:59 22:59 Other: Weight 97.069 kg Patient Weight 02/28/18 06:59 Weight 97.069 kg - Imaging and Cardiology Imaging: Impressions Chest X-Ray 02/27/18 10:41 CONCLUSION: Moderate cardiomegaly with no evidence of pulmonary edema. Assessment and Plan - Assessment (1) CHF exacerbation Code(s): I50.9 - Heart failure, unspecified Status: Acute (2) Atrial fibrillation with slow ventricular response Code(s): I48.91 - Unspecified atrial fibrillation Status: Acute (3) Edema Code(s): R60.9 - Edema, unspecified Status: Acute - Plan Patient currently in atrial fibrillation with slow ventricular response, we will start a Heparin gtt for anticoagulation. Troponin levels are not trending, no signs of acute coronary syndrome. We will obtain a 2D echo to evaluate LV function. We will continue to monitor the patient during his hospitalization. The patient was seen and evaluated by Dr. Tipton who participated in care, management and decision making. - Attending Attestation Patient seen and examined. I reviewed and agree with the evaluation and plan as presented. Obtain echo to evaluate LV fx. Start heparin, later switch to NOAC. Continue monitoring on telemetry. (1) CHF exacerbation Qualifiers: Heart failure type: unspecified Qualified Code(s): I50.9 - Heart failure, unspecified
[2018-02-27 19:39] LABS: Troponin I 0.04 ng/mL (0.02-0.05)
[2018-02-27] MEDS: Heparin Drip 25,000 UNIT/250 ML BAG IV.CONT PRN (19:40)
[2018-02-27 19:45] LABS: Activated Partial Thrombo Time 31.9 sec (23.4-31.7); INR 1.4 Ratio; Prothrombin Time 14.1 sec (9.8-11.6)
--- NOTE | 2018-02-27 20:41 | ECHRPT ---
Indication: CHRONIC PULMONARY HEART DISEASE CONCLUSIONS Normal left ventricular size. Moderate concentric left ventricular hypertrophy. The left ventricular systolic function is severely reduced with an estimated ejection fraction of 20 %. There is abnormal septal motion consistent with an intraventricular conduction delay. There is global left ventricular dysfunction. The left atrial size is moderately dilated. The right atrial size is moderately dilated. Moderate mitral valve regurgitation. There is moderate tricuspid regurgitation. The estimated pulmonary arterial pressure is 54 mmHg. Mild pulmonary valve regurgitation. BP: / HR: Rhythm: Sinus MEASUREMENTS (Male / Female) Normal Values Technical Quality:Fair 2D ECHO LV Diastolic Diameter PLAX 6.1 cm 4.2 - 5.9 / 3.9 - 5.3 cm LV Systolic Diameter PLAX 5.8 cm IVS Diastolic Thickness 1.3 cm 0.6 - 1.0 / 0.6 - 0.9 cm LVPW Diastolic Thickness 1.3 cm 0.6 - 1.0 / 0.6 - 0.9 cm LV Relative Wall Thickness 0.4 RV Internal Dim ED PLAX 4.1 cm LVOT Diameter 1.8 cm Aortic Root Diameter 3.3 cm LA Systolic Diameter LX 4.9 cm 3.0 - 4.0 / 2.7 - 3.8 cm M-MODE AV Cusp Separation MM 1.9 cm DOPPLER AV Peak Velocity 105.6 cm/s AV Peak Gradient 4.5 mmHg AV Mean Gradient 2.5 mmHg AV Velocity Time Integral 16.8 cm LVOT Peak Velocity 46.1 cm/s LVOT Peak Gradient 0.9 mmHg LVOT Velocity Time Integral 6.4 cm AV Area Cont Eq vti 1.0 cm AV Area Cont Eq pk 1.1 cm Mitral E Point Velocity 74.5 cm/s Mitral A Point Velocity 31.6 cm/s Mitral E to A Ratio 2.4 LV E' Lateral Velocity 7.7 cm/s Mitral E to LV E' Lateral Ratio 9.7 LV E' Septal Velocity 3.4 cm/s Mitral E to LV E' Septal Ratio 21.8 TR Peak Velocity 333.0 cm/s TR Peak Gradient 44.4 mmHg Right Atrial Pressure 10.0 mmHg Pulmonary Artery Systolic Pressu 54.4 mmHg Right Ventricular Systolic Press 54.4 mmHg FINDINGS LEFT VENTRICLE Normal left ventricular size. Moderate concentric left ventricular hypertrophy. The left ventricular systolic function is severely reduced with an estimated ejection fraction of 20 %. There is abnormal septal motion consistent with an intraventricular conduction delay. There is global left ventricular dysfunction. RIGHT VENTRICLE Normal right ventricular size and systolic function. LEFT ATRIUM The left atrial size is moderately dilated. RIGHT ATRIUM The right atrial size is moderately dilated. ATRIAL SEPTUM No atrial level shunt is demonstrated by color flow Doppler interrogation. AORTA The aortic root and proximal ascending aorta are normal in size on limited imaging. MITRAL VALVE Moderate mitral valve regurgitation. AORTIC VALVE Trileaflet aortic valve. No aortic valve stenosis or regurgitation. TRICUSPID VALVE There is moderate tricuspid regurgitation. The estimated pulmonary arterial pressure is 54.4 mmHg. PULMONARY VALVE Mild pulmonary valve regurgitation. VESSELS There is less than 50% respiratory change in dimension of the inferior vena cava (abnormal). PERICARDIUM No pericardial effusion. Irais Tipton MD, FACC (Electronically Signed) Final Date:27 February 2018 20:40
[2018-02-27] MEDS: Senna/Docusate Sodium 8.6/50 MG Tablet PO SCH (21:01)
[2018-02-27] MEDS: Latanoprost 0.005% Opth Drops 2.5 ML Bottle EACH EYE SCH ×2 (21:18)
[2018-02-28 07:46] LABS: Baso % (Auto) 0.9 % (0.0-2.0); Eos # (Auto) 0.1 th/mm3 (0.0-0.4); Eos % (Auto) 2.8 % (0.0-4.0); Hematocrit 45.4 % (39.0-51.0); Hemoglobin 15.1 gm/dL (13.0-17.0); Lymph # (Auto) 0.9 th/mm3 (1.0-4.8); Lymph % (Auto) 18.6 % (9.0-44.0); Mean Corpuscular HGB Conc 33.3 % (32.0-36.0); Mean Corpuscular Hemoglobin 33.5 pg (27.0-34.0); Mean Corpuscular Volume 100.5 fL (80.0-100.0); Mean Platelet Volume 10.6 fL (7.0-11.0); Mono # (Auto) 0.5 th/mm3 (0.0-0.9); Mono % (Auto) 10.1 % (0.0-8.0); Neut # (Auto) 3.4 th/mm3 (1.8-7.7); Neut % (Auto) 67.6 % (16.0-70.0); Platelet Count 89 th/mm3 (150-450); Red Blood Count 4.51 mil/mm3 (4.50-5.90); Red Cell Distribution Width 17.1 % (11.6-17.2); White Blood Count 5.1 th/mm3 (4.0-11.0)
[2018-02-28 08:12] LABS: Alanine Aminotransferase 37 U/L (12-78); Albumin 2.9 g/dL (3.4-5.0); Anion Gap 8 meq/L (5-15); Aspartate Aminotransferase 46 U/L (15-37); Blood Urea Nitrogen 27 mg/dL (7-18); Calcium 8.3 mg/dL (8.5-10.1); Carbon Dioxide 27.9 meq/L (21.0-32.0); Chloride 102 meq/L (98-107); Glomerular Filtration Rate 44 mL/min (>89); Glucose,Random 99 mg/dL (74-106); Potassium 3.4 meq/L (3.5-5.1); Sodium 138 meq/L (136-145)
[2018-02-28 08:41] LABS: Alkaline Phosphatase 183 U/L (45-117); Total Protein 6.1 g/dL (6.4-8.2)
[2018-02-28 08:47] LABS: Ovalocytes 1+
[2018-02-28] MEDS ORDERED: Dextrose 50% in Water 50 ML Vial IV.PUSH PRN (08:49)
[2018-02-28] MEDS: Multivitamin/Minerals Therapeutic Tablet PO SCH (08:57)
[2018-02-28] MEDS: Ferrous Sulfate 325 MG Tablet PO SCH (08:58)
[2018-02-28] MEDS: Finasteride 5 MG Tablet PO SCH (08:58)
[2018-02-28] MEDS: Brimonidine 0.2% Opth Drops 5 ML Bottle EACH EYE SCH ×2 (08:58→22:52)
[2018-02-28] MEDS: Senna/Docusate Sodium 8.6/50 MG Tablet PO SCH ×2 (08:58→22:41)
[2018-02-28] MEDS: Heparin Drip 25,000 UNIT/250 ML BAG IV.CONT PRN ×2 (10:39→22:31)
[2018-02-28] MEDS: Insulin NovoLOG Aspart Correctional Sugar Inj SQ SCH ×3 (12:14→22:39)
--- NOTE | 2018-02-28 12:59 | P.PNCA ---
Subjective Interval history: Patient denies any CP, pressure, palpitations, dizziness or shortness of breath. Patient states that he is feeling good at this time. Medications and Allergies Allergies Allergy/AdvReac Type Severity Reaction Status Date / Time lisinopril [From Zestril] Allergy Swelling Verified 02/27/18 10:45 Penicillins Allergy Hives Verified 02/27/18 10:29 Home Medications Medication Instructions Recorded Confirmed Type aspirin 81 mg PO DAILY 02/27/18 02/27/18 History brimonidine 1 drp OPHTHALMIC (EYE) BID 02/27/18 02/27/18 History carvedilol 6.25 mg PO BID 02/27/18 02/27/18 History ferrous sulfate 325 mg PO DAILY 02/27/18 02/27/18 History finasteride 5 mg PO DAILY 02/27/18 02/27/18 History furosemide 40 mg PO DAILY 02/27/18 02/27/18 History latanoprost 1 drp OPHTHALMIC (EYE) QPM 02/27/18 02/27/18 History trbblhsu-fnt-HX-lycopen-lutein 1 tab PO DAILY 02/27/18 02/27/18 History [Centrum Silver Men] potassium chloride 10 meq PO DAILY 02/27/18 02/27/18 History potassium gluconate 550 mg PO DAILY 02/27/18 02/27/18 History simvastatin 80 mg PO QPM 02/27/18 02/27/18 History tamsulosin 0.4 mg PO DAILY 02/27/18 02/27/18 History Active Medications: Active Medications Acetaminophen (Tylenol) 650 mg PO Q4H PRN PRN Reason: Temp > 100.4 Al Hydroxide/Mg Hydroxide (Milk Of Magnesia Liq) 30 ml PO Q12H PRN PRN Reason: Mild Constipation Aspirin (Aspirin Chew) 81 mg PO DAILY [facility] Last Admin: 02/28/18 08:57 Dose: 81 mg Atorvastatin Calcium (Lipitor) 40 mg PO DAILY@1800 [facility] Last Admin: 02/27/18 19:35 Dose: 40 mg Bisacodyl (Dulcolax Supp) 10 mg RECTAL DAILY PRN PRN Reason: SEVERE CONSITIPATION Brimonidine Tartrate (Alphagan 0.2% Opth Drops) 1 drops EACH EYE BID [facility] Last Admin: 02/28/18 08:58 Dose: 1 drops Dextrose (D50w Vial) 50 ml IV.PUSH UNSCH PRN PRN Reason: PER HYPOGLYCEMIA PROTOCOL Ferrous Sulfate (Ferosul) 325 mg PO DAILY [facility] Last Admin: 02/28/18 08:58 Dose: 325 mg Finasteride (Proscar) 5 mg PO DAILY [facility] Last Admin: 02/28/18 08:58 Dose: 5 mg Furosemide (Lasix Inj) 40 mg IV.PUSH DAILY [facility] Last Admin: 02/28/18 08:58 Dose: 40 mg Furosemide (Lasix Inj) 40 mg IV.PUSH ONCE ONE Stop: 02/28/18 14:01 Glucagon (Glucagon Inj) 1 mg OTHER PRN PRN PRN Reason: for Hypoglycemia Protocol Heparin Sodium/Dextrose (Heparin/D5w 25,000 U/250 Ml) 25,000 unit in 250 mls @ 10 mls/hr IV.CONT TITRATE PRN; Protocol PRN Reason: Per Protocol Last Admin: 02/28/18 10:39 Dose: 800 units/hr, 8 mls/hr Insulin Aspart (Novolog Insulin Correctional Sugar Inj) 0 unit SQ ACHS [facility]; Protocol Last Admin: 02/28/18 12:14 Dose: Not Given Lactulose (Lactulose Liq) 30 ml PO DAILY PRN PRN Reason: SEVERE CONSITIPATION Latanoprost (Xalatan 0.005% Opth Drops) 1 drop EACH EYE DAILY@1800 [facility] Last Admin: 02/27/18 21:18 Dose: 1 drop Multivitamins/Minerals (Theragran-M) 1 tab PO DAILY [facility] Last Admin: 02/28/18 08:57 Dose: 1 tab Ondansetron HCl (Zofran Inj) 4 mg IV.PUSH Q6H PRN PRN Reason: NAUSEA OR VOMITING Potassium Chloride (K-Dur) 40 meq PO ONCE ONE Stop: 02/28/18 12:26 Senna/Docusate Sodium (Mary-Colace) 1 tab PO BID [facility] Last Admin: 02/28/18 08:58 Dose: 1 tab Sennosides (Senokot) 17.2 mg PO Q12H PRN PRN Reason: Moderate Constipation Sodium Chloride (Ns Flush) 2 ml IV.FLUSH BID [facility] Last Admin: 02/28/18 08:58 Dose: 2 ml Sodium Chloride (Ns Flush) 2 ml IV.FLUSH PRN PRN PRN Reason: FLUSH AFTER USING IV ACCESS Tamsulosin HCl (Flomax) 0.4 mg PO DAILY [facility] Last Admin: 02/28/18 08:58 Dose: 0.4 mg Physical Exam Vital signs: Vital Signs 02/27/18 15:00 02/27/18 16:08 02/27/18 16:40 Temperature 95.7 F L Pulse Rate 118 H 58 L 57 L Respiratory Rate 18 18 Blood Pressure 125/70 134/80 121/95 H Pulse Oximetry 98 96 02/27/18 20:00 02/27/18 21:45 02/28/18 00:00 Temperature 97.2 F L 98.4 F Pulse Rate 63 61 59 L Respiratory Rate 18 17 Blood Pressure 152/82 H 144/97 H Pulse Oximetry 98 96 02/28/18 04:00 02/28/18 08:00 Temperature 97 F L 97 F L Pulse Rate 55 L 101 H Respiratory Rate 18 20 Blood Pressure 145/85 H 137/90 Pulse Oximetry 97 97 Intake & Output 02/27/18 02/28/18 02/28/18 18:59 06:59 18:59 Intake Total 272 / 272 98 / 98 Output Total 300 / 300 Balance -28 / -28 98 / 98 Weight 97.069 kg 86.3 kg Intake: IV 152 / 152 98 / 98 Heparin/D5W 25,000 U/250 mL 25, 152 / 152 98 / 98 000 unit In 250 ml @ 1,000 UNITS/HR 10 mls/hr IV.CONT TITRATE PRN Rx#:[id number] Oral 120 / 120 Output: Urine 300 / 300 - Constitutional no acute distress - Routine HEENT Exam Head: Present: normocephalic Eye: Present: PERRL ENT: Present: mucous membranes moist - Routine Neck Exam Present: full ROM - Routine Respiratory Exam Present: CTA bilaterally - Routine Cardiovascular Exam Present: S1, S2, murmur. Absent: gallop - Routine Abdominal Exam Present: normoactive bowel sounds - Routine Extremities Exam Present: edema, full ROM, pulses intact, normal capillary refill. Absent: cyanosis, clubbing Comments: trace LE's - Routine Skin Exam Present: intact - Routine Neurological Exam Present: oriented X3 - Detailed Neurological Exam: Coma Scale Eye Opening: Spontaneous Verbal Response: Oriented Motor Response: Obey commands Alejandro Coma Scale Total: 15 - Routine Psychiatric Exam Present: normal affect Results 02/28/18 06:47 02/28/18 16:22 Cardiac Enzymes 02/27/18 02/27/18 02/27/18 Range/Units 10:45 10:45 14:04 AST 64 H (15-37) U/L CK-MB (CK-2) 7.3 H (0.5-3.6) ng/mL Troponin I 0.04 0.03 (0.02-0.05) ng/mL B-Natriuretic Peptide 1438 H (0-100) pg/mL 02/27/18 02/28/18 02/28/18 Range/Units 19:00 06:47 06:47 AST 46 H (15-37) U/L CK-MB (CK-2) (0.5-3.6) ng/mL Troponin I 0.04 (0.02-0.05) ng/mL B-Natriuretic Peptide 1240 H (0-100) pg/mL Coagulation 02/27/18 02/27/18 02/27/18 Range/Units 10:45 10:45 19:10 PT 14.0 H 14.1 H (9.8-11.6) sec APTT 30.7 31.9 H (23.4-31.7) sec B-Natriuretic Peptide 1438 H (0-100) pg/mL 02/28/18 02/28/18 02/28/18 Range/Units 00:36 06:47 07:46 PT (9.8-11.6) sec APTT 61.3 H D 93.7 H* D (23.4-31.7) sec B-Natriuretic Peptide 1240 H (0-100) pg/mL 02/28/18 Range/Units 10:28 PT (9.8-11.6) sec APTT 57.5 H D (23.4-31.7) sec B-Natriuretic Peptide (0-100) pg/mL Lipids 02/27/18 Range/Units 10:45 Triglycerides 63 (42-150) mg/dL Cholesterol 76 L (120-200) mg/dL HDL Cholesterol 32.4 L (40.0-60.0) mg/dL Cholesterol/HDL Ratio 2.34 Ratio CBC 02/27/18 02/28/18 Range/Units 10:45 06:47 WBC 5.5 5.1 (4.0-11.0) th/mm3 RBC 4.84 4.51 (4.50-5.90) mil/mm3 Hgb 16.7 15.1 (13.0-17.0) gm/dL Hct 49.4 45.4 (39.0-51.0) % Plt Count 91 L 89 L (150-450) th/mm3 Neut # (Auto) 4.2 3.4 (1.8-7.7) th/mm3 Lymph # (Auto) 0.8 L 0.9 L (1.0-4.8) th/mm3 [place] # (Auto) 0.4 0.5 (0.0-0.9) th/mm3 Eos # (Auto) 0.1 0.1 (0.0-0.4) th/mm3 Baso # (Auto) 0.0 0.0 (0.0-0.2) th/mm3 Comprehensive Metabolic Panel 02/27/18 02/28/18 Range/Units 10:45 06:47 Sodium 136 138 (136-145) meq/L Potassium 3.6 3.4 L (3.5-5.1) meq/L Chloride 101 102 (98-107) meq/L Carbon Dioxide 26.4 27.9 (21.0-32.0) meq/L BUN 27 H 27 H (7-18) mg/dL Creatinine 1.61 H 1.51 H (0.60-1.30) mg/dL Calcium 8.5 8.3 L (8.5-10.1) mg/dL AST 64 H 46 H (15-37) U/L ALT 49 37 (12-78) U/L Alkaline Phosphatase 230 H 183 H (45-117) U/L Total Protein 7.5 6.1 L D (6.4-8.2) g/dL Albumin 3.7 2.9 L D (3.4-5.0) g/dL Intake and Output 02/27/18 02/28/18 02/28/18 22:59 06:59 14:59 Intake Total 272 / 272 / 98 Output Total 300 / 300 Balance -28 / -28 / 98 Intake: IV 152 / 152 98 / 98 Heparin/D5W 25,000 U/250 mL 25, 152 / 152 98 / 98 000 unit In 250 ml @ 1,000 UNITS/HR 10 mls/hr IV.CONT TITRATE PRN Rx#:[id number] Oral 120 / 120 Output: Urine 300 / 300 Other: Weight 86.3 kg - Imaging and Cardiology Imaging: Impressions Chest X-Ray 02/27/18 10:41 CONCLUSION: Moderate cardiomegaly with no evidence of pulmonary edema. Assessment and Plan - Assessment (1) CHF exacerbation Code(s): I50.9 - Heart failure, unspecified Status: Chronic (2) Atrial fibrillation with slow ventricular response Code(s): I48.91 - Unspecified atrial fibrillation Status: Acute (3) Edema Code(s): R60.9 - Edema, unspecified Status: Acute - Plan We will continue anticoagulation with Heparin at this time. 2D echo shows LV EF of 20%, moderate MV regurgitation, and moderate TV regurgitation. We will start the patient on Coreg 6.25mg BID and Entresto 24mg/26mg for CHF management. We will check a BMP daily to evaluate renal function and potassium levels. We will continue to monitor the patient during his hospitalization. The patient was seen and evaluated by Dr. Tipton who participated in care, management and decision making. - Attending Attestation Patient seen and examined. I reviewed and agree with the evaluation and plan as presented. Continue current program, titrate tx for CHF. Continue monitoring on telemetry. Increase activity. D/w pt and family. (1) CHF exacerbation Qualifiers: Heart failure type: systolic Qualified Code(s): I50.23 - Acute on chronic systolic (congestive) heart failure
--- NOTE | 2018-02-28 13:34 | P.PNFP ---
Subjective Interval history: Patient was seen sitting up in bed, lots of family members and friends at the bedside. He feels much better, most of the shortness of breath is gone. No fever or chills, chest pain, dizziness, nausea/vomiting. He urinated a lot overnight but feels that he still has some ways to go. <Yolanda Bradshaw U - 02/28/18 14:42> Results - Labs Result diagrams: 02/28/18 06:47 02/28/18 16:22 <Brittney Castelan R - 02/28/18 18:58> Abnormal lab results 02/27/18 02/28/18 02/28/18 Range/Units 19:10 00:36 06:47 MCV 100.5 H (80.0-100.0) fL Plt Count 89 L (150-450) th/mm3 Ferry % (Auto) 10.1 H (0.0-8.0) % Lymph # (Auto) 0.9 L (1.0-4.8) th/mm3 Platelet Estimate Low L (Normal) Platelet Morphology Enlarged H (Normal) Ovalocytes 1+ H (None) PT 14.1 H (9.8-11.6) sec APTT 31.9 H 61.3 H D (23.4-31.7) sec Potassium (3.5-5.1) meq/L BUN (7-18) mg/dL Creatinine (0.60-1.30) mg/dL Estimated GFR (>89) mL/min POC Glucose (68-110) mg/dl Random Glucose (74-106) mg/dL Calcium (8.5-10.1) mg/dL Total Bilirubin (0.2-1.0) mg/dL AST (15-37) U/L Alkaline Phosphatase (45-117) U/L B-Natriuretic Peptide (0-100) pg/mL Total Protein (6.4-8.2) g/dL Albumin (3.4-5.0) g/dL 02/28/18 02/28/18 02/28/18 Range/Units 06:47 06:47 07:46 MCV (80.0-100.0) fL Plt Count (150-450) th/mm3 Ferry % (Auto) (0.0-8.0) % Lymph # (Auto) (1.0-4.8) th/mm3 Platelet Estimate (Normal) Platelet Morphology (Normal) Ovalocytes (None) PT (9.8-11.6) sec APTT 93.7 H* D (23.4-31.7) sec Potassium 3.4 L (3.5-5.1) meq/L BUN 27 H (7-18) mg/dL Creatinine 1.51 H (0.60-1.30) mg/dL Estimated GFR 44 L (>89) mL/min POC Glucose (68-110) mg/dl Random Glucose (74-106) mg/dL Calcium 8.3 L (8.5-10.1) mg/dL Total Bilirubin 1.9 H (0.2-1.0) mg/dL AST 46 H (15-37) U/L Alkaline Phosphatase 183 H (45-117) U/L B-Natriuretic Peptide 1240 H (0-100) pg/mL Total Protein 6.1 L D (6.4-8.2) g/dL Albumin 2.9 L D (3.4-5.0) g/dL 02/28/18 02/28/18 02/28/18 Range/Units 10:28 12:31 16:22 MCV (80.0-100.0) fL Plt Count (150-450) th/mm3 Ferry % (Auto) (0.0-8.0) % Lymph # (Auto) (1.0-4.8) th/mm3 Platelet Estimate (Normal) Platelet Morphology (Normal) Ovalocytes (None) PT (9.8-11.6) sec APTT 57.5 H D 58.1 H 60.4 H (23.4-31.7) sec Potassium (3.5-5.1) meq/L BUN (7-18) mg/dL Creatinine (0.60-1.30) mg/dL Estimated GFR (>89) mL/min POC Glucose (68-110) mg/dl Random Glucose (74-106) mg/dL Calcium (8.5-10.1) mg/dL Total Bilirubin (0.2-1.0) mg/dL AST (15-37) U/L Alkaline Phosphatase (45-117) U/L B-Natriuretic Peptide (0-100) pg/mL Total Protein (6.4-8.2) g/dL Albumin (3.4-5.0) g/dL 02/28/18 02/28/18 Range/Units 16:22 17:12 MCV (80.0-100.0) fL Plt Count (150-450) th/mm3 Ferry % (Auto) (0.0-8.0) % Lymph # (Auto) (1.0-4.8) th/mm3 Platelet Estimate (Normal) Platelet Morphology (Normal) Ovalocytes (None) PT (9.8-11.6) sec APTT (23.4-31.7) sec Potassium (3.5-5.1) meq/L BUN 26 H (7-18) mg/dL Creatinine 1.53 H (0.60-1.30) mg/dL Estimated GFR 43 L (>89) mL/min POC Glucose 175 H (68-110) mg/dl Random Glucose 192 H (74-106) mg/dL Calcium 8.2 L (8.5-10.1) mg/dL Total Bilirubin (0.2-1.0) mg/dL AST (15-37) U/L Alkaline Phosphatase (45-117) U/L B-Natriuretic Peptide (0-100) pg/mL Total Protein (6.4-8.2) g/dL Albumin (3.4-5.0) g/dL Short CBC 02/28/18 Range/Units 06:47 WBC 5.1 (4.0-11.0) th/mm3 Hgb 15.1 (13.0-17.0) gm/dL Hct 45.4 (39.0-51.0) % Plt Count 89 L (150-450) th/mm3 BMP 18 02/28/18 06:47 16:22 Sodium 138 138 Potassium 3.4 L 3.5 Chloride 102 101 Carbon Dioxide 27.9 27.8 BUN 27 H 26 H Creatinine 1.51 H 1.53 H Calcium 8.3 L 8.2 L Cardiac Enzymes 02/27/18 Range/Units 19:00 Total Creatine Kinase 227 (39-308) U/L Troponin I 0.04 (0.02-0.05) ng/mL Liver Function 02/28/18 Range/Units 06:47 Total Bilirubin 1.9 H (0.2-1.0) mg/dL AST 46 H (15-37) U/L ALT 37 (12-78) U/L Alkaline Phosphatase 183 H (45-117) U/L Albumin 2.9 L D (3.4-5.0) g/dL <Brittney Castelan R - 02/28/18 18:58> Abnormal lab results 02/27/18 02/27/18 02/27/18 Range/Units 10:45 10:45 19:10 MCV (80.0-100.0) fL Plt Count (150-450) th/mm3 Ferry % (Auto) (0.0-8.0) % Lymph # (Auto) (1.0-4.8) th/mm3 Platelet Estimate (Normal) Platelet Morphology (Normal) Ovalocytes (None) PT 14.1 H (9.8-11.6) sec APTT 31.9 H (23.4-31.7) sec Potassium (3.5-5.1) meq/L BUN (7-18) mg/dL Creatinine (0.60-1.30) mg/dL Estimated GFR (>89) mL/min Hemoglobin A1c 7.6 H (4.3-6.0) % Calcium (8.5-10.1) mg/dL Total Bilirubin (0.2-1.0) mg/dL AST (15-37) U/L Alkaline Phosphatase (45-117) U/L B-Natriuretic Peptide (0-100) pg/mL Total Protein (6.4-8.2) g/dL Albumin (3.4-5.0) g/dL Cholesterol 76 L (120-200) mg/dL HDL Cholesterol 32.4 L (40.0-60.0) mg/dL Vitamin B12 Greater than 2000 H (193-986) pg/mL Folate Greater than 20.0 H (3.1-17.5) ng/mL TSH 6.650 H (0.358-3.740) uIU/mL 02/28/18 02/28/18 02/28/18 Range/Units 00:36 06:47 06:47 MCV 100.5 H (80.0-100.0) fL Plt Count 89 L (150-450) th/mm3 Ferry % (Auto) 10.1 H (0.0-8.0) % Lymph # (Auto) 0.9 L (1.0-4.8) th/mm3 Platelet Estimate Low L (Normal) Platelet Morphology Enlarged H (Normal) Ovalocytes 1+ H (None) PT (9.8-11.6) sec APTT 61.3 H D (23.4-31.7) sec Potassium 3.4 L (3.5-5.1) meq/L BUN 27 H (7-18) mg/dL Creatinine 1.51 H (0.60-1.30) mg/dL Estimated GFR 44 L (>89) mL/min Hemoglobin A1c (4.3-6.0) % Calcium 8.3 L (8.5-10.1) mg/dL Total Bilirubin 1.9 H (0.2-1.0) mg/dL AST 46 H (15-37) U/L Alkaline Phosphatase 183 H (45-117) U/L B-Natriuretic Peptide (0-100) pg/mL Total Protein 6.1 L D (6.4-8.2) g/dL Albumin 2.9 L D (3.4-5.0) g/dL Cholesterol (120-200) mg/dL HDL Cholesterol (40.0-60.0) mg/dL Vitamin B12 (193-986) pg/mL Folate (3.1-17.5) ng/mL TSH (0.358-3.740) uIU/mL 02/28/18 02/28/18 02/28/18 Range/Units 06:47 07:46 10:28 MCV (80.0-100.0) fL Plt Count (150-450) th/mm3 Ferry % (Auto) (0.0-8.0) % Lymph # (Auto) (1.0-4.8) th/mm3 Platelet Estimate (Normal) Platelet Morphology (Normal) Ovalocytes (None) PT (9.8-11.6) sec APTT 93.7 H* D 57.5 H D (23.4-31.7) sec Potassium (3.5-5.1) meq/L BUN (7-18) mg/dL Creatinine (0.60-1.30) mg/dL Estimated GFR (>89) mL/min Hemoglobin A1c (4.3-6.0) % Calcium (8.5-10.1) mg/dL Total Bilirubin (0.2-1.0) mg/dL AST (15-37) U/L Alkaline Phosphatase (45-117) U/L B-Natriuretic Peptide 1240 H (0-100) pg/mL Total Protein (6.4-8.2) g/dL Albumin (3.4-5.0) g/dL Cholesterol (120-200) mg/dL HDL Cholesterol (40.0-60.0) mg/dL Vitamin B12 (193-986) pg/mL Folate (3.1-17.5) ng/mL TSH (0.358-3.740) uIU/mL 02/28/18 Range/Units 12:31 MCV (80.0-100.0) fL Plt Count (150-450) th/mm3 Ferry % (Auto) (0.0-8.0) % Lymph # (Auto) (1.0-4.8) th/mm3 Platelet Estimate (Normal) Platelet Morphology (Normal) Ovalocytes (None) PT (9.8-11.6) sec APTT 58.1 H (23.4-31.7) sec Potassium (3.5-5.1) meq/L BUN (7-18) mg/dL Creatinine (0.60-1.30) mg/dL Estimated GFR (>89) mL/min Hemoglobin A1c (4.3-6.0) % Calcium (8.5-10.1) mg/dL Total Bilirubin (0.2-1.0) mg/dL AST (15-37) U/L Alkaline Phosphatase (45-117) U/L B-Natriuretic Peptide (0-100) pg/mL Total Protein (6.4-8.2) g/dL Albumin (3.4-5.0) g/dL Cholesterol (120-200) mg/dL HDL Cholesterol (40.0-60.0) mg/dL Vitamin B12 (193-986) pg/mL Folate (3.1-17.5) ng/mL TSH (0.358-3.740) uIU/mL Short CBC 02/28/18 Range/Units 06:47 WBC 5.1 (4.0-11.0) th/mm3 Hgb 15.1 (13.0-17.0) gm/dL Hct 45.4 (39.0-51.0) % Plt Count 89 L (150-450) th/mm3 BMP 02/28/18 06:47 Sodium 138 Potassium 3.4 L Chloride 102 Carbon Dioxide 27.9 BUN 27 H Creatinine 1.51 H Calcium 8.3 L Cardiac Enzymes 02/27/18 02/27/18 Range/Units 14:04 19:00 Total Creatine Kinase 283 227 (39-308) U/L Troponin I 0.03 0.04 (0.02-0.05) ng/mL Liver Function 02/28/18 Range/Units 06:47 Total Bilirubin 1.9 H (0.2-1.0) mg/dL AST 46 H (15-37) U/L ALT 37 (12-78) U/L Alkaline Phosphatase 183 H (45-117) U/L Albumin 2.9 L D (3.4-5.0) g/dL <Eko,Yolanda U - 02/28/18 13:34> Physical Exam Vital signs: Vital Signs 02/27/18 20:00 02/27/18 21:45 02/28/18 00:00 Temperature 97.2 F L 98.4 F Pulse Rate 63 61 59 L Respiratory Rate 18 17 Blood Pressure 152/82 H 144/97 H Pulse Oximetry 98 96 02/28/18 04:00 02/28/18 08:00 02/28/18 12:00 Temperature 97 F L 97 F L 98 F Pulse Rate 55 L 101 H 110 H Respiratory Rate 18 20 20 Blood Pressure 145/85 H 137/90 144/84 H Pulse Oximetry 97 97 97 02/28/18 16:00 Temperature 97.7 F Pulse Rate 50 L Respiratory Rate 20 Blood Pressure 152/90 H Pulse Oximetry 97 Intake & Output 02/27/18 02/28/18 02/28/18 18:59 06:59 18:59 Intake Total 272 / 272 98 / 98 Output Total 300 / 300 Balance -28 / -28 98 / 98 Weight 97.069 kg 86.3 kg Intake: IV 152 / 152 98 / 98 Heparin/D5W 25,000 U/250 mL 25, 152 / 152 98 / 98 000 unit In 250 ml @ 1,000 UNITS/HR 10 mls/hr IV.CONT TITRATE PRN Rx#:[id number] Oral 120 / 120 Output: Urine 300 / 300 <Vandemark,Brittney R - 02/28/18 18:58> Vital Signs 02/27/18 15:00 02/27/18 16:08 02/27/18 16:40 Temperature 95.7 F L Pulse Rate 118 H 58 L 57 L Respiratory Rate 18 18 Blood Pressure 125/70 134/80 121/95 H Pulse Oximetry 98 96 02/27/18 20:00 02/27/18 21:45 02/28/18 00:00 Temperature 97.2 F L 98.4 F Pulse Rate 63 61 59 L Respiratory Rate 18 17 Blood Pressure 152/82 H 144/97 H Pulse Oximetry 98 96 02/28/18 04:00 02/28/18 08:00 02/28/18 12:00 Temperature 97 F L 97 F L 98 F Pulse Rate 55 L 101 H 110 H Respiratory Rate 18 20 20 Blood Pressure 145/85 H 137/90 144/84 H Pulse Oximetry 97 97 97 Intake & Output 02/27/18 02/28/18 02/28/18 18:59 06:59 18:59 Intake Total 272 / 272 98 / 98 Output Total 300 / 300 Balance -28 / -28 98 / 98 Weight 97.069 kg 86.3 kg Intake: IV 152 / 152 98 / 98 Heparin/D5W 25,000 U/250 mL 25, 152 / 152 98 / 98 000 unit In 250 ml @ 1,000 UNITS/HR 10 mls/hr IV.CONT TITRATE PRN Rx#:[id number] Oral 120 / 120 Output: Urine 300 / 300 <Yolanda Bradshaw U - 02/28/18 13:34> Narrative: GENERAL: elderly appearing male, sitting upright in bed, on 3 L oxygen by NC SKIN: Warm and dry. HEAD: Normocephalic. EYES: No scleral icterus. No injection or drainage. NECK: Supple, trachea midline. No JVD or lymphadenopathy. CARDIOVASCULAR: Regular rate and rhythm. Grade 2 out of 5 diastolic murmur appreciated at the L sternal border. RESPIRATORY: Occasional crackles auscultated at the lower lobes bilaterally. No wheezes, rhonchi appreciated. GASTROINTESTINAL: Abdomen soft, non-tender, distended. MUSCULOSKELETAL: No cyanosis, 1+ pitting edema bilaterally to the thighs. BACK: Nontender without obvious deformity. No CVA tenderness. <Yolanda Bradshaw U - 02/28/18 14:42> Assessment and Plan - Assessment (1) CHF exacerbation Code(s): I50.9 - Heart failure, unspecified Status: Chronic (2) Atrial fibrillation with slow ventricular response Code(s): I48.91 - Unspecified atrial fibrillation Status: Acute (3) Elevated serum creatinine Code(s): R79.89 - Other specified abnormal findings of blood chemistry Status : Acute (4) Subclinical hypothyroidism Code(s): E03.9 - Hypothyroidism, unspecified Status: Acute (5) Glaucoma Code(s): H40.9 - Unspecified glaucoma Status: Acute (6) Thrombocytopenia Code(s): D69.6 - Thrombocytopenia, unspecified Status: Acute (7) DVT prophylaxis Status: Acute (8) Nutrition, metabolism, and development symptoms Code(s): R63.8 - Other symptoms and signs concerning food and fluid intake Status: Acute <Brittney Castelan R - 02/28/18 18:58> (1) CHF exacerbation Code(s): I50.9 - Heart failure, unspecified Status: Chronic Plan: -2D echo notable for EF of 20%, moderate concentric left ventricular hypertrophy , abnormal septal motion consistent with an intraventricular conduction delay, and global left ventricular dysfunction -Successful diuresis so far, loss of ~11 kg compared to admission -BNP still elevated at 1240 this a.m. -Mostly normal lipid panel, A1c 7.6 -Cardiology on board * Start Entresto 24 mg / 26 mg twice daily * Start Coreg 6.25 mg twice daily -Continue Lasix 40 mg IV every 24h, consider additional dose as needed -Monitor daily BMP -Fluid restrict to 1.5 L daily -Strict I's and O's (2) Atrial fibrillation with slow ventricular response Code(s): I48.91 - Unspecified atrial fibrillation Status: Acute Plan: See plan above. Heparin Drip per cardiology (3) Elevated serum creatinine Code(s): R79.89 - Other specified abnormal findings of blood chemistry Status : Acute Plan: Unsure if this is his baseline. Possibly acute kidney injury from CHF exacerbation Trended down from 1.61 on admission to 1.51 today Will hold off of nephrotoxic drugs Monitor status with IV lasix (4) Subclinical hypothyroidism Code(s): E03.9 - Hypothyroidism, unspecified Status: Acute Plan: -TSH 6.650 on admission -Free T4 within normal limits at 0.92 -Not currently on thyroid hormone replacement -does not meet criteria -Recommend outpatient follow-up (5) Glaucoma Code(s): H40.9 - Unspecified glaucoma Status: Acute Plan: Continue home eyedrops (6) Thrombocytopenia Code(s): D69.6 - Thrombocytopenia, unspecified Status: Acute Plan: Platelet count downtrended to 89 from 91 on admission. Continue to monitor especially while patient is on heparin drip (7) DVT prophylaxis Status: Acute Plan: Heparin drip per cardiology Continue to monitor platelets (8) Nutrition, metabolism, and development symptoms Code(s): R63.8 - Other symptoms and signs concerning food and fluid intake Status: Acute Plan: Fluids: Oral fluids only Electrolyes: Monitor and replete as needed Nutrtion: Cardiac diet DNR/DNI <Yolanda Bradshaw - 02/28/18 14:42> - Assessment and Plan 88-year-old male with past medical history of hyperlipidemia, CHF, irregular heartbeat presents with shortness of breath for the past couple weeks with a associated pedal edema that increased to his abdomen and associated decreased urinary output and frequency. Admitted for CHF exacerbation with elevated BNP. Patient found to be in A. fib with slow ventricular response. Cardiology consulted and 2D echo performed. Found to have EF of 20% with global wall ventricular dysfunction. Started on Entresto. Currently on heparin drip. <Yolanda Bradshaw - 02/28/18 14:42> Discussed Condition With: Seen and examined with Dr. Castelan-attending, Dr. Cruz-PGY 2 <Yolanda Bradshaw - 02/28/18 14:42> Discharge Planning: Pending cardiology recommendations <Yolanda Bradshaw [facility] 02/28/18 14:42> - Attending Attestation Patient seen and dw resident team and agree with assessment and plan. Have read note from cardiology team to start entresto -- however, this patient reported anaphylactic reaction to lisinopril to us at admission which is a contraindication. Will dc the medication now -- pt has not received this. Will clarify with cardiology tomorrow and with the patient what his actual reaction to the lisinopril in the past was. If no true anaphylaxis we can start that medication in the am tomorrow. OTW continue with treatment plan. Called and dw the nurse at 6:58pm - she will not give the medication tonight and will dc the medication. <Brittney Castelan R - 02/28/18 18:58> <Yolanda Bradshaw U - Last Filed: 02/28/18 14:42> (1) CHF exacerbation Qualifiers: Heart failure type: systolic Qualified Code(s): I50.23 - Acute on chronic systolic (congestive) heart failure <Brittney Castelan R - Last Filed: 02/28/18 18:58> (1) CHF exacerbation Qualifiers: Heart failure type: systolic Qualified Code(s): I50.23 - Acute on chronic systolic (congestive) heart failure <Yolanda Bradshaw U - Last Filed: 02/28/18 14:42> (1) CHF exacerbation Qualifiers: Heart failure type: systolic Qualified Code(s): I50.23 - Acute on chronic systolic (congestive) heart failure <Brittney Castelan R - Last Filed: 02/28/18 18:58> (1) CHF exacerbation Qualifiers: Heart failure type: systolic Qualified Code(s): I50.23 - Acute on chronic systolic (congestive) heart failure
[2018-02-28 17:25] LABS: Calcium 8.2 mg/dL (8.5-10.1); Carbon Dioxide 27.8 meq/L (21.0-32.0); Potassium 3.5 meq/L (3.5-5.1)
[2018-02-28] MEDS: Latanoprost 0.005% Opth Drops 2.5 ML Bottle EACH EYE SCH (17:39)
[2018-02-28] MEDS: Carvedilol 6.25 MG Tablet PO SCH (22:34)
--- NOTE | 2018-02-28 23:17 | ECG ---
Date Performed: 02/27/2018 Time Performed: 10:59:31 PTAGE: 88 years EKG: ATRIAL FIBRILLATION WITH SLOW VENTRICULAR RESPONSE WITH ABERRANT CONDUCTION OR VENTRICULAR PREMATURE COMPLEXES INTRAVENTRICULAR CONDUCTION DELAY ABNORMAL ECG NO PREVIOUS TRACING DOCTOR: Fadi Diallo Interpretating Date/Time 02/28/2018 23:15:21
[2018-03-01 06:35] LABS: Eos # (Auto) 0.1 th/mm3 (0.0-0.4); Eos % (Auto) 2.3 % (0.0-4.0); Hematocrit 43.9 % (39.0-51.0); Hemoglobin 14.8 gm/dL (13.0-17.0); Lymph # (Auto) 0.8 th/mm3 (1.0-4.8); Lymph % (Auto) 16.1 % (9.0-44.0); Mean Corpuscular HGB Conc 33.8 % (32.0-36.0); Mean Corpuscular Hemoglobin 33.4 pg (27.0-34.0); Mean Corpuscular Volume 98.8 fL (80.0-100.0); Mean Platelet Volume 10.5 fL (7.0-11.0); Mono # (Auto) 0.6 th/mm3 (0.0-0.9); Mono % (Auto) 11.3 % (0.0-8.0); Neut # (Auto) 3.4 th/mm3 (1.8-7.7); Neut % (Auto) 69.3 % (16.0-70.0); Platelet Count 96 th/mm3 (150-450); Red Blood Count 4.44 mil/mm3 (4.50-5.90); Red Cell Distribution Width 17.4 % (11.6-17.2)
[2018-03-01 06:59] LABS: Albumin 2.8 g/dL (3.4-5.0); Anion Gap 7 meq/L (5-15); Aspartate Aminotransferase 42 U/L (15-37); Blood Urea Nitrogen 28 mg/dL (7-18); Calcium 8.1 mg/dL (8.5-10.1); Carbon Dioxide 29.6 meq/L (21.0-32.0); Chloride 102 meq/L (98-107); Glomerular Filtration Rate 48 mL/min (>89); Glucose,Random 94 mg/dL (74-106); Potassium 3.4 meq/L (3.5-5.1); Sodium 139 meq/L (136-145)
[2018-03-01 07:01] LABS: Alanine Aminotransferase 34 U/L (12-78)
[2018-03-01 07:03] LABS: Alkaline Phosphatase 174 U/L (45-117); Total Protein 5.9 g/dL (6.4-8.2)
[2018-03-01 08:04] LABS: Ovalocytes 1+; Platelet Morphology Normal (Normal)
[2018-03-01] MEDS: Insulin NovoLOG Aspart Correctional Sugar Inj SQ SCH ×4 (08:28→22:31)
[2018-03-01] MEDS: Finasteride 5 MG Tablet PO SCH (09:05)
[2018-03-01] MEDS: Ferrous Sulfate 325 MG Tablet PO SCH (09:06)
[2018-03-01] MEDS: Multivitamin/Minerals Therapeutic Tablet PO SCH (09:06)
[2018-03-01] MEDS: Carvedilol 6.25 MG Tablet PO SCH ×2 (09:07→22:23)
[2018-03-01] MEDS: Senna/Docusate Sodium 8.6/50 MG Tablet PO SCH ×2 (09:08→22:35)
[2018-03-01] MEDS: Brimonidine 0.2% Opth Drops 5 ML Bottle EACH EYE SCH ×2 (09:08→22:26)
--- NOTE | 2018-03-01 10:36 | P.PNFP ---
Subjective Interval history: Patient seen and examined at bedside this morning. He is sitting up comfortably in bed, eating breakfast. He has no complaints overnight. He denies any shortness of breath today. States that his urinary frequency and amount has increased. He continues to have swelling in his legs but states that it has decreased since admission. He denies any chest pain, shortness of breath, abdominal pain, problems with urination or defecation. All questions were answered at bedside. He confirms having an allergy to lisinopril (angioedema). <Madonna Quach - 03/01/18 15:16> Results - Labs Result diagrams: 03/01/18 05:52 03/01/18 05:52 <Brittney Castelan - 03/01/18 16:13> Abnormal lab results 02/28/18 02/28/18 02/28/18 Range/Units 16:22 16:22 17:12 RBC (4.50-5.90) mil/mm3 RDW (11.6-17.2) % Plt Count (150-450) th/mm3 [place] % (Auto) (0.0-8.0) % Lymph # (Auto) (1.0-4.8) th/mm3 Platelet Estimate (Normal) Ovalocytes (None) APTT 60.4 H (23.4-31.7) sec Potassium (3.5-5.1) meq/L BUN 26 H (7-18) mg/dL Creatinine 1.53 H (0.60-1.30) mg/dL Estimated GFR 43 L (>89) mL/min POC Glucose 175 H (68-110) mg/dl Random Glucose 192 H (74-106) mg/dL Calcium 8.2 L (8.5-10.1) mg/dL Total Bilirubin (0.2-1.0) mg/dL AST (15-37) U/L Alkaline Phosphatase (45-117) U/L Total Protein (6.4-8.2) g/dL Albumin (3.4-5.0) g/dL 02/28/18 03/01/18 03/01/18 Range/Units 21:10 05:52 05:52 RBC 4.44 L (4.50-5.90) mil/mm3 RDW 17.4 H (11.6-17.2) % Plt Count 96 L (150-450) th/mm3 [place] % (Auto) 11.3 H (0.0-8.0) % Lymph # (Auto) 0.8 L (1.0-4.8) th/mm3 Platelet Estimate Low L (Normal) Ovalocytes 1+ H (None) APTT 62.3 H (23.4-31.7) sec Potassium (3.5-5.1) meq/L BUN (7-18) mg/dL Creatinine (0.60-1.30) mg/dL Estimated GFR (>89) mL/min POC Glucose 154 H (68-110) mg/dl Random Glucose (74-106) mg/dL Calcium (8.5-10.1) mg/dL Total Bilirubin (0.2-1.0) mg/dL AST (15-37) U/L Alkaline Phosphatase (45-117) U/L Total Protein (6.4-8.2) g/dL Albumin (3.4-5.0) g/dL 03/01/18 03/01/18 Range/Units 05:52 12:06 RBC (4.50-5.90) mil/mm3 RDW (11.6-17.2) % Plt Count (150-450) th/mm3 [place] % (Auto) (0.0-8.0) % Lymph # (Auto) (1.0-4.8) th/mm3 Platelet Estimate (Normal) Ovalocytes (None) APTT (23.4-31.7) sec Potassium 3.4 L (3.5-5.1) meq/L BUN 28 H (7-18) mg/dL Creatinine 1.39 H (0.60-1.30) mg/dL Estimated GFR 48 L (>89) mL/min POC Glucose 155 H (68-110) mg/dl Random Glucose (74-106) mg/dL Calcium 8.1 L (8.5-10.1) mg/dL Total Bilirubin 2.0 H (0.2-1.0) mg/dL AST 42 H (15-37) U/L Alkaline Phosphatase 174 H (45-117) U/L Total Protein 5.9 L (6.4-8.2) g/dL Albumin 2.8 L (3.4-5.0) g/dL Short CBC 03/01/18 Range/Units 05:52 WBC 5.0 (4.0-11.0) th/mm3 Hgb 14.8 (13.0-17.0) gm/dL Hct 43.9 (39.0-51.0) % Plt Count 96 L (150-450) th/mm3 BMP 02/28/18 03/01/18 16:22 05:52 Sodium 138 139 Potassium 3.5 3.4 L Chloride 101 102 Carbon Dioxide 27.8 29.6 BUN 26 H 28 H Creatinine 1.53 H 1.39 H Calcium 8.2 L 8.1 L Liver Function 03/01/18 Range/Units 05:52 Total Bilirubin 2.0 H (0.2-1.0) mg/dL AST 42 H (15-37) U/L ALT 34 (12-78) U/L Alkaline Phosphatase 174 H (45-117) U/L Albumin 2.8 L (3.4-5.0) g/dL <Brittney Castelan - 03/01/18 16:13> Abnormal lab results 02/28/18 02/28/18 02/28/18 Range/Units 10:28 12:31 16:22 RBC (4.50-5.90) mil/mm3 RDW (11.6-17.2) % Plt Count (150-450) th/mm3 [place] % (Auto) (0.0-8.0) % Lymph # (Auto) (1.0-4.8) th/mm3 Platelet Estimate (Normal) Ovalocytes (None) APTT 57.5 H D 58.1 H 60.4 H (23.4-31.7) sec Potassium (3.5-5.1) meq/L BUN (7-18) mg/dL Creatinine (0.60-1.30) mg/dL Estimated GFR (>89) mL/min POC Glucose (68-110) mg/dl Random Glucose (74-106) mg/dL Calcium (8.5-10.1) mg/dL Total Bilirubin (0.2-1.0) mg/dL AST (15-37) U/L Alkaline Phosphatase (45-117) U/L Total Protein (6.4-8.2) g/dL Albumin (3.4-5.0) g/dL 02/28/18 02/28/18 02/28/18 Range/Units 16:22 17:12 21:10 RBC (4.50-5.90) mil/mm3 RDW (11.6-17.2) % Plt Count (150-450) th/mm3 [place] % (Auto) (0.0-8.0) % Lymph # (Auto) (1.0-4.8) th/mm3 Platelet Estimate (Normal) Ovalocytes (None) APTT (23.4-31.7) sec Potassium (3.5-5.1) meq/L BUN 26 H (7-18) mg/dL Creatinine 1.53 H (0.60-1.30) mg/dL Estimated GFR 43 L (>89) mL/min POC Glucose 175 H 154 H (68-110) mg/dl Random Glucose 192 H (74-106) mg/dL Calcium 8.2 L (8.5-10.1) mg/dL Total Bilirubin (0.2-1.0) mg/dL AST (15-37) U/L Alkaline Phosphatase (45-117) U/L Total Protein (6.4-8.2) g/dL Albumin (3.4-5.0) g/dL 03/01/18 03/01/18 03/01/18 Range/Units 05:52 05:52 05:52 RBC 4.44 L (4.50-5.90) mil/mm3 RDW 17.4 H (11.6-17.2) % Plt Count 96 L (150-450) th/mm3 [place] % (Auto) 11.3 H (0.0-8.0) % Lymph # (Auto) 0.8 L (1.0-4.8) th/mm3 Platelet Estimate Low L (Normal) Ovalocytes 1+ H (None) APTT 62.3 H (23.4-31.7) sec Potassium 3.4 L (3.5-5.1) meq/L BUN 28 H (7-18) mg/dL Creatinine 1.39 H (0.60-1.30) mg/dL Estimated GFR 48 L (>89) mL/min POC Glucose (68-110) mg/dl Random Glucose (74-106) mg/dL Calcium 8.1 L (8.5-10.1) mg/dL Total Bilirubin 2.0 H (0.2-1.0) mg/dL AST 42 H (15-37) U/L Alkaline Phosphatase 174 H (45-117) U/L Total Protein 5.9 L (6.4-8.2) g/dL Albumin 2.8 L (3.4-5.0) g/dL Short CBC 03/01/18 Range/Units 05:52 WBC 5.0 (4.0-11.0) th/mm3 Hgb 14.8 (13.0-17.0) gm/dL Hct 43.9 (39.0-51.0) % Plt Count 96 L (150-450) th/mm3 BMP 02/28/18 03/01/18 16:22 05:52 Sodium 138 139 Potassium 3.5 3.4 L Chloride 101 102 Carbon Dioxide 27.8 29.6 BUN 26 H 28 H Creatinine 1.53 H 1.39 H Calcium 8.2 L 8.1 L Liver Function 03/01/18 Range/Units 05:52 Total Bilirubin 2.0 H (0.2-1.0) mg/dL AST 42 H (15-37) U/L ALT 34 (12-78) U/L Alkaline Phosphatase 174 H (45-117) U/L Albumin 2.8 L (3.4-5.0) g/dL <Madonna Quach - 03/01/18 10:36> Physical Exam Vital signs: Vital Signs 02/28/18 20:00 02/28/18 20:30 03/01/18 00:00 Temperature 98.1 F 97.2 F L Pulse Rate 51 L 72 58 L Respiratory Rate 18 19 Blood Pressure 142/68 H 120/70 Pulse Oximetry 98 97 03/01/18 04:00 03/01/18 08:00 03/01/18 08:50 Temperature 97 F L 97.1 F L Pulse Rate 52 L 61 56 L Respiratory Rate 17 16 Blood Pressure 142/71 H 143/78 H Pulse Oximetry 96 98 Intake & Output 02/28/18 03/01/18 03/01/18 18:59 06:59 18:59 Intake Total 1058 / 1058 370 / 370 Output Total 1500 / 1500 900 / 900 Balance -442 / -442 -530 / -530 Weight 96.5 kg Intake: IV 98 / 98 250 / 250 Heparin/D5W 25,000 U/250 mL 25, / 98 250 / 250 000 unit In 250 ml @ 1,000 UNITS/HR 10 mls/hr IV.CONT TITRATE PRN Rx#:[id number] Oral 960 / 960 120 / 120 Output: Urine 1500 / 1500 900 / 900 Other: # Voids 2 # Bowel Movements 0 <Brittney Castelan - 03/01/18 16:13> Vital Signs 02/28/18 12:00 02/28/18 16:00 02/28/18 20:00 Temperature 98 F 97.7 F 98.1 F Pulse Rate 110 H 50 L 51 L Respiratory Rate 20 20 18 Blood Pressure 144/84 H 152/90 H 142/68 H Pulse Oximetry 97 97 98 02/28/18 20:30 03/01/18 00:00 03/01/18 04:00 Temperature 97.2 F L 97 F L Pulse Rate 72 58 L 52 L Respiratory Rate 19 17 Blood Pressure 120/70 142/71 H Pulse Oximetry 97 96 03/01/18 08:00 03/01/18 08:50 Temperature 97.1 F L Pulse Rate 61 56 L Respiratory Rate 16 Blood Pressure 143/78 H Pulse Oximetry 98 Intake & Output 02/28/18 03/01/18 03/01/18 18:59 06:59 18:59 Intake Total 1058 / 1058 370 / 370 Output Total 1500 / 1500 900 / 900 Balance -442 / -442 -530 / -530 Weight 96.5 kg Intake: IV 250 / 250 Heparin/D5W 25,000 U/250 mL 25, / 250 / 250 000 unit In 250 ml @ 1,000 UNITS/HR 10 mls/hr IV.CONT TITRATE PRN Rx#:[id number] Oral 960 / 960 120 / 120 Output: Urine 1500 / 1500 900 / 900 Other: # Voids 2 # Bowel Movements 0 <Madonna Quach - 03/01/18 10:36> Narrative: GENERAL: In NAD. SKIN: Warm and dry. NECK: No JVD or lymphadenopathy. CARDIOVASCULAR: Irregular. 2/6 systolic murmur appreciated at the left sternal border. RESPIRATORY: Occasional crackles auscultated at lung bases bilaterally. No wheezes or rhonchi appreciated. GASTROINTESTINAL: Abdomen soft, non-tender, nondistended. Bowel sounds present. MUSCULOSKELETAL: No cyanosis, 2+ pitting edema. <Madonna Quach - 03/01/18 15:09> Assessment and Plan - Assessment (1) CHF exacerbation Code(s): I50.9 - Heart failure, unspecified Status: Chronic (2) Atrial fibrillation with slow ventricular response Code(s): I48.91 - Unspecified atrial fibrillation Status: Acute (3) Elevated serum creatinine Code(s): R79.89 - Other specified abnormal findings of blood chemistry Status : Acute (4) Subclinical hypothyroidism Code(s): E03.9 - Hypothyroidism, unspecified Status: Acute (5) Glaucoma Code(s): H40.9 - Unspecified glaucoma Status: Acute (6) Thrombocytopenia Code(s): D69.6 - Thrombocytopenia, unspecified Status: Acute (7) Diabetes Code(s): E11.9 - Type 2 diabetes mellitus without complications Status: Acute (8) DVT prophylaxis Status: Acute (9) Nutrition, metabolism, and development symptoms Code(s): R63.8 - Other symptoms and signs concerning food and fluid intake Status: Acute <Brittney Castelan Gabriela - 03/01/18 16:13> (1) CHF exacerbation Code(s): I50.9 - Heart failure, unspecified Status: Chronic Plan: -2D echo notable for EF of 20%, moderate concentric left ventricular hypertrophy , abnormal septal motion consistent with an intraventricular conduction delay, and global left ventricular dysfunction -Mostly normal lipid panel, A1c 7.6 -Cardiology on board * DC Entresto due to allergic interaction. * Continue Coreg 6.25 mg twice daily * Start hydralazine 25 mg TID and isosorbide mononitrate 30 mg daily. -Increase Lasix dose to 40 mg IV twice daily. -Monitor daily BMP: Hypokalemic today at 3.4. 40 M EQ KCl ordered. -Fluid restrict to 1.5 L daily -Strict I's and O's (2) Atrial fibrillation with slow ventricular response Code(s): I48.91 - Unspecified atrial fibrillation Status: Acute Plan: See plan above. Heparin Drip per cardiology (3) Elevated serum creatinine Code(s): R79.89 - Other specified abnormal findings of blood chemistry Status : Acute Plan: Unsure if this is his baseline. Possibly acute kidney injury from CHF exacerbation Trended down from 1.61 on admission to 1.39 today Will hold off of nephrotoxic drugs Monitor status with IV lasix (4) Subclinical hypothyroidism Code(s): E03.9 - Hypothyroidism, unspecified Status: Acute Plan: -TSH 6.650 on admission -Free T4 within normal limits at 0.92 -Not currently on thyroid hormone replacement -does not meet criteria -Recommend outpatient follow-up (5) Glaucoma Code(s): H40.9 - Unspecified glaucoma Status: Acute Plan: Continue home eyedrops (6) Thrombocytopenia Code(s): D69.6 - Thrombocytopenia, unspecified Status: Acute Plan: Platelet count downtrended to 89 from 91 on admission. Continue to monitor especially while patient is on heparin drip Platelet count increasing from 89 to 96. (7) Diabetes Code(s): E11.9 - Type 2 diabetes mellitus without complications Status: Acute Plan: HbA1c: 7.6. Low-dose sliding scale added. Patient to be to DC home on metformin 250 mg BID. (8) DVT prophylaxis Status: Acute Plan: Heparin drip per cardiology Continue to monitor platelets (9) Nutrition, metabolism, and development symptoms Code(s): R63.8 - Other symptoms and signs concerning food and fluid intake Status: Acute Plan: Fluids: Fluid restrict to 1.5 L Electrolyes: Hypokalemic today at 3.4. 40 M EQ KCl ordered. Nutrtion: Cardiac diet DNR/DNI <Madonna Quach - 03/01/18 15:21> - Assessment and Plan 88-year-old male with past medical history of hyperlipidemia, CHF, irregular heartbeat presents with shortness of breath for the past couple weeks with a associated pedal edema that increased to his abdomen and associated decreased urinary output and frequency. Admitted for CHF exacerbation with elevated BNP. Patient found to be in A. fib with slow ventricular response. Cardiology consulted and 2D echo performed. Found to have EF of 20% with global wall ventricular dysfunction. Started on Coreg 6.25 twice daily. Currently on heparin drip. <Madonna Quach - 03/01/18 15:09> - Attending Attestation Patient seen and examined and dw the resident team. He is continuing to improve and diurese. Continue with current plan as above <Brittney Castelan R - 03/01/18 16:13> <Madonna Quach - Last Filed: 03/01/18 15:21> (1) CHF exacerbation Qualifiers: Heart failure type: systolic Qualified Code(s): I50.23 - Acute on chronic systolic (congestive) heart failure <Brittney Castelan R - Last Filed: 03/01/18 16:13> (1) CHF exacerbation Qualifiers: Heart failure type: systolic Qualified Code(s): I50.23 - Acute on chronic systolic (congestive) heart failure <Madonna Quach - Last Filed: 03/01/18 15:21> (1) CHF exacerbation Qualifiers: Heart failure type: systolic Qualified Code(s): I50.23 - Acute on chronic systolic (congestive) heart failure <Brittney Castelan - Last Filed: 03/01/18 16:13> (1) CHF exacerbation Qualifiers: Heart failure type: systolic Qualified Code(s): I50.23 - Acute on chronic systolic (congestive) heart failure
--- NOTE | 2018-03-01 13:08 | P.PNCA ---
Subjective Interval history: Feels better, no CP, SOB improved, good diuresis Medications and Allergies Active Medications: Active Medications Acetaminophen (Tylenol) 650 mg PO Q4H PRN PRN Reason: Temp > 100.4 Al Hydroxide/Mg Hydroxide (Milk Of Magnesia Liq) 30 ml PO Q12H PRN PRN Reason: Mild Constipation Aspirin (Aspirin Chew) 81 mg PO DAILY [facility] Last Admin: 03/01/18 09:06 Dose: 81 mg Atorvastatin Calcium (Lipitor) 40 mg PO DAILY@1800 [facility] Last Admin: 02/28/18 17:39 Dose: 40 mg Bisacodyl (Dulcolax Supp) 10 mg RECTAL DAILY PRN PRN Reason: SEVERE CONSITIPATION Brimonidine Tartrate (Alphagan 0.2% Opth Drops) 1 drops EACH EYE BID [facility] Last Admin: 03/01/18 09:08 Dose: 1 drops Carvedilol (Coreg) 6.25 mg PO BID [facility] Last Admin: 03/01/18 09:07 Dose: 6.25 mg Dextrose (D50w Vial) 50 ml IV.PUSH UNSCH PRN PRN Reason: PER HYPOGLYCEMIA PROTOCOL Ferrous Sulfate (Ferosul) 325 mg PO DAILY [facility] Last Admin: 03/01/18 09:06 Dose: 325 mg Finasteride (Proscar) 5 mg PO DAILY [facility] Last Admin: 03/01/18 09:05 Dose: 5 mg Furosemide (Lasix Inj) 40 mg IV.PUSH DAILY [facility] Last Admin: 03/01/18 09:07 Dose: 40 mg Glucagon (Glucagon Inj) 1 mg OTHER PRN PRN PRN Reason: for Hypoglycemia Protocol Heparin Sodium/Dextrose (Heparin/D5w 25,000 U/250 Ml) 25,000 unit in 250 mls @ 10 mls/hr IV.CONT TITRATE PRN; Protocol PRN Reason: Per Protocol Last Admin: 02/28/18 22:31 Dose: 800 units/hr, 8 mls/hr Insulin Aspart (Novolog Insulin Correctional Sugar Inj) 0 unit SQ ACHS [facility]; Protocol Last Admin: 03/01/18 12:56 Dose: 1 unit Lactulose (Lactulose Liq) 30 ml PO DAILY PRN PRN Reason: SEVERE CONSITIPATION Latanoprost (Xalatan 0.005% Opth Drops) 1 drop EACH EYE DAILY@1800 [facility] Last Admin: 02/28/18 17:39 Dose: 1 drop Multivitamins/Minerals (Theragran-M) 1 tab PO DAILY [facility] Last Admin: 03/01/18 09:06 Dose: 1 tab Ondansetron HCl (Zofran Inj) 4 mg IV.PUSH Q6H PRN PRN Reason: NAUSEA OR VOMITING Senna/Docusate Sodium (Mary-Colace) 1 tab PO BID [facility] Last Admin: 03/01/18 09:08 Dose: Not Given Sennosides (Senokot) 17.2 mg PO Q12H PRN PRN Reason: Moderate Constipation Sodium Chloride (Ns Flush) 2 ml IV.FLUSH BID [facility] Last Admin: 03/01/18 09:08 Dose: 2 ml Sodium Chloride (Ns Flush) 2 ml IV.FLUSH PRN PRN PRN Reason: FLUSH AFTER USING IV ACCESS Tamsulosin HCl (Flomax) 0.4 mg PO DAILY [facility] Last Admin: 03/01/18 09:05 Dose: 0.4 mg Allergies Allergy/AdvReac Type Severity Reaction Status Date / Time lisinopril [From Zestril] Allergy Swelling Verified 02/27/18 10:45 Penicillins Allergy Hives Verified 02/27/18 10:29 Home Medications Medication Instructions Recorded Confirmed Type aspirin 81 mg PO DAILY 02/27/18 02/27/18 History brimonidine 1 drp OPHTHALMIC (EYE) BID 02/27/18 02/27/18 History carvedilol 6.25 mg PO BID 02/27/18 02/27/18 History ferrous sulfate 325 mg PO DAILY 02/27/18 02/27/18 History finasteride 5 mg PO DAILY 02/27/18 02/27/18 History furosemide 40 mg PO DAILY 02/27/18 02/27/18 History latanoprost 1 drp OPHTHALMIC (EYE) QPM 02/27/18 02/27/18 History hrjuqmkk-iim-AL-lycopen-lutein 1 tab PO DAILY 02/27/18 02/27/18 History [Centrum Silver Men] potassium chloride 10 meq PO DAILY 02/27/18 02/27/18 History potassium gluconate 550 mg PO DAILY 02/27/18 02/27/18 History simvastatin 80 mg PO QPM 02/27/18 02/27/18 History tamsulosin 0.4 mg PO DAILY 02/27/18 02/27/18 History Physical Exam Vital signs: Vital Signs 02/28/18 16:00 02/28/18 20:00 02/28/18 20:30 Temperature 97.7 F 98.1 F Pulse Rate 50 L 51 L 72 Respiratory Rate 20 18 Blood Pressure 152/90 H 142/68 H Pulse Oximetry 97 98 03/01/18 00:00 03/01/18 04:00 03/01/18 08:00 Temperature 97.2 F L 97 F L 97.1 F L Pulse Rate 58 L 52 L 61 Respiratory Rate 19 17 16 Blood Pressure 120/70 142/71 H 143/78 H Pulse Oximetry 97 96 98 03/01/18 08:50 Temperature Pulse Rate 56 L Respiratory Rate Blood Pressure Pulse Oximetry Intake & Output 02/28/18 03/01/18 03/01/18 18:59 06:59 18:59 Intake Total 1058 / 1058 370 / 370 Output Total 1500 / 1500 900 / 900 Balance -442 / -442 -530 / -530 Weight 212 lb 11.937 oz Intake: IV 250 / 250 Heparin/D5W 25,000 U/250 mL 25, 98 / 98 250 / 250 000 unit In 250 ml @ 1,000 UNITS/HR 10 mls/hr IV.CONT TITRATE PRN Rx#:[id number] Oral 960 / 960 120 / 120 Output: Urine 1500 / 1500 900 / 900 Other: # Voids 2 # Bowel Movements 0 Narrative: GENERAL: In NAD. SKIN: Warm and dry. NECK: No JVD or lymphadenopathy. CARDIOVASCULAR: Irregular. 2/6 syst murmur. RESPIRATORY: Clear. GASTROINTESTINAL: Abdomen soft, non-tender, distended. MUSCULOSKELETAL: No cyanosis, 1+ pitting edema. Results 03/01/18 05:52 03/01/18 05:52 Cardiac Enzymes 02/27/18 02/27/18 02/28/18 Range/Units 14:04 19:00 06:47 AST 46 H (15-37) U/L Troponin I 0.03 0.04 (0.02-0.05) ng/mL B-Natriuretic Peptide (0-100) pg/mL 02/28/18 03/01/18 Range/Units 06:47 05:52 AST 42 H (15-37) U/L Troponin I (0.02-0.05) ng/mL B-Natriuretic Peptide 1240 H (0-100) pg/mL Coagulation 02/27/18 02/28/18 02/28/18 Range/Units 19:10 00:36 06:47 PT 14.1 H (9.8-11.6) sec APTT 31.9 H 61.3 H D (23.4-31.7) sec B-Natriuretic Peptide 1240 H (0-100) pg/mL 02/28/18 02/28/18 02/28/18 Range/Units 07:46 10:28 12:31 PT (9.8-11.6) sec APTT 93.7 H* D 57.5 H D 58.1 H (23.4-31.7) sec B-Natriuretic Peptide (0-100) pg/mL 02/28/18 03/01/18 Range/Units 16:22 05:52 PT (9.8-11.6) sec APTT 60.4 H 62.3 H (23.4-31.7) sec B-Natriuretic Peptide (0-100) pg/mL Lipids 02/27/18 Range/Units 10:45 Triglycerides 63 (42-150) mg/dL Cholesterol 76 L (120-200) mg/dL HDL Cholesterol 32.4 L (40.0-60.0) mg/dL Cholesterol/HDL Ratio 2.34 Ratio CBC 02/28/18 03/01/18 Range/Units 06:47 05:52 WBC 5.1 5.0 (4.0-11.0) th/mm3 RBC 4.51 4.44 L (4.50-5.90) mil/mm3 Hgb 15.1 14.8 (13.0-17.0) gm/dL Hct 45.4 43.9 (39.0-51.0) % Plt Count 89 L 96 L (150-450) th/mm3 Neut # (Auto) 3.4 3.4 (1.8-7.7) th/mm3 Lymph # (Auto) 0.9 L 0.8 L (1.0-4.8) th/mm3 [place] # (Auto) 0.5 0.6 (0.0-0.9) th/mm3 Eos # (Auto) 0.1 0.1 (0.0-0.4) th/mm3 Baso # (Auto) 0.0 0.0 (0.0-0.2) th/mm3 Comprehensive Metabolic Panel 02/28/18 02/28/18 03/01/18 Range/Units 06:47 16:22 05:52 Sodium 138 138 139 (136-145) meq/L Potassium 3.4 L 3.5 3.4 L (3.5-5.1) meq/L Chloride 102 101 102 (98-107) meq/L Carbon Dioxide 27.9 27.8 29.6 (21.0-32.0) meq/L BUN 27 H 26 H 28 H (7-18) mg/dL Creatinine 1.51 H 1.53 H 1.39 H (0.60-1.30) mg/dL Calcium 8.3 L 8.2 L 8.1 L (8.5-10.1) mg/dL AST 46 H 42 H (15-37) U/L ALT 37 34 (12-78) U/L Alkaline Phosphatase 183 H 174 H (45-117) U/L Total Protein 6.1 L D 5.9 L (6.4-8.2) g/dL Albumin 2.9 L D 2.8 L (3.4-5.0) g/dL Intake and Output 02/28/18 03/01/18 03/01/18 22:59 06:59 14:59 Intake Total 1210 / 1210 120 / 120 Output Total 1500 / 1500 900 / 900 Balance -290 / -290 -780 / -780 Intake: IV 250 / 250 Heparin/D5W 25,000 U/250 mL 25, 250 / 250 000 unit In 250 ml @ 1,000 UNITS/HR 10 mls/hr IV.CONT TITRATE PRN Rx#:[id number] Oral 960 / 960 120 / 120 Output: Urine 1500 / 1500 900 / 900 Other: # Voids 2 # Bowel Movements 0 Weight 212 lb 11.937 oz Assessment and Plan - Assessment (1) CHF exacerbation Code(s): I50.9 - Heart failure, unspecified Status: Chronic (2) Atrial fibrillation with slow ventricular response Code(s): I48.91 - Unspecified atrial fibrillation Status: Acute (3) Edema Code(s): R60.9 - Edema, unspecified Status: Acute - Plan 2D echo shows LV EF of 20%, moderate MV regurgitation, and moderate TV regurgitation. Continue therapy with Coreg 6.25mg BID. 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 Start hydralazine and isosorbide mononitrate. Monitor BMP daily to evaluate renal function and potassium levels. We will continue to monitor the patient during his hospitalization. Increase activity, PT. D/w pt and family. (1) CHF exacerbation Qualifiers: Heart failure type: systolic Qualified Code(s): I50.23 - Acute on chronic systolic (congestive) heart failure
[2018-03-01] MEDS: Rivaroxaban 15 MG Tablet PO SCH (14:33)
[2018-03-01 16:32] LABS: Calcium 8.2 mg/dL (8.5-10.1); Carbon Dioxide 30.5 meq/L (21.0-32.0); Potassium 3.6 meq/L (3.5-5.1)
[2018-03-01] MEDS: hydrALAZINE 25 MG Tablet PO SCH (17:25)
[2018-03-01] MEDS: Latanoprost 0.005% Opth Drops 2.5 ML Bottle EACH EYE SCH (17:52)
[2018-03-02] MEDS: Isosorbide Mononitrate 30 MG ER 24HR Tablet (Imdur) PO SCH (06:54)
[2018-03-02 06:57] LABS: Hematocrit 43.1 % (39.0-51.0); Hemoglobin 14.8 gm/dL (13.0-17.0); Mean Corpuscular HGB Conc 34.3 % (32.0-36.0); Mean Corpuscular Volume 99.1 fL (80.0-100.0); Mean Platelet Volume 10.2 fL (7.0-11.0); Platelet Count 87 th/mm3 (150-450); Red Blood Count 4.35 mil/mm3 (4.50-5.90); Red Cell Distribution Width 17.5 % (11.6-17.2); White Blood Count 4.3 th/mm3 (4.0-11.0)
[2018-03-02 07:25] LABS: Calcium 8.3 mg/dL (8.5-10.1); Carbon Dioxide 27.6 meq/L (21.0-32.0); Potassium 3.7 meq/L (3.5-5.1)
[2018-03-02] MEDS: Insulin NovoLOG Aspart Correctional Sugar Inj SQ SCH ×4 (09:31→22:40)
[2018-03-02] MEDS: hydrALAZINE 25 MG Tablet PO SCH ×3 (09:32→17:43)
[2018-03-02] MEDS: Ferrous Sulfate 325 MG Tablet PO SCH (09:32)
[2018-03-02] MEDS: Carvedilol 6.25 MG Tablet PO SCH ×2 (09:32→22:42)
[2018-03-02] MEDS: Finasteride 5 MG Tablet PO SCH (09:33)
[2018-03-02] MEDS: Rivaroxaban 15 MG Tablet PO SCH (09:33)
[2018-03-02] MEDS: Multivitamin/Minerals Therapeutic Tablet PO SCH (09:33)
[2018-03-02] MEDS: Senna/Docusate Sodium 8.6/50 MG Tablet PO SCH ×2 (09:34→22:39)
[2018-03-02] MEDS: Brimonidine 0.2% Opth Drops 5 ML Bottle EACH EYE SCH ×2 (09:34→22:39)
--- NOTE | 2018-03-02 11:20 | P.PNFP ---
Subjective Interval history: Patient seen and examined at bedside this morning. He is sitting upright in a chair and watching television. He states that his shortness of breath has improved overnight. He says that he feels back to his baseline. States that he still worried about the swelling in his legs but it has decreased since admission. He denies any chest pain, shortness of breath, abdominal pain, problems with urination or defecation. All questions were answered at bedside this morning. <Main FayMadonna - 03/02/18 11:20> Results - Labs Result diagrams: 03/03/18 23:23 03/04/18 08:10 <FlipBrittney Gabriela - 03/08/18 09:42> Abnormal lab results 03/01/18 03/01/18 03/01/18 Range/Units 12:06 13:49 16:55 RBC (4.50-5.90) mil/mm3 RDW (11.6-17.2) % Plt Count (150-450) th/mm3 BUN 28 H (7-18) mg/dL Creatinine 1.33 H (0.60-1.30) mg/dL Estimated GFR 51 L (>89) mL/min POC Glucose 155 H 133 H (68-110) mg/dl Random Glucose 127 H (74-106) mg/dL Calcium 8.2 L (8.5-10.1) mg/dL 03/02/18 03/02/18 Range/Units 06:26 06:26 RBC 4.35 L (4.50-5.90) mil/mm3 RDW 17.5 H (11.6-17.2) % Plt Count 87 L (150-450) th/mm3 BUN 28 H (7-18) mg/dL Creatinine (0.60-1.30) mg/dL Estimated GFR 54 L (>89) mL/min POC Glucose (68-110) mg/dl Random Glucose 109 H (74-106) mg/dL Calcium 8.3 L (8.5-10.1) mg/dL Short CBC 03/02/18 Range/Units 06:26 WBC 4.3 (4.0-11.0) th/mm3 Hgb 14.8 (13.0-17.0) gm/dL Hct 43.1 (39.0-51.0) % Plt Count 87 L (150-450) th/mm3 BMP 03/01/18 03/02/18 13:49 06:26 Sodium 138 139 Potassium 3.6 3.7 Chloride 100 102 Carbon Dioxide 30.5 27.6 BUN 28 H 28 H Creatinine 1.33 H 1.26 Calcium 8.2 L 8.3 L <Madonna Narayan - 03/02/18 11:20> Physical Exam Vital signs: Vital Signs 03/01/18 12:00 03/01/18 16:00 03/01/18 19:15 Temperature 98.7 F 97.1 F L Pulse Rate 70 54 L 87 Respiratory Rate 20 20 Blood Pressure 115/60 135/68 Pulse Oximetry 92 L 93 L 03/01/18 20:00 03/01/18 20:20 03/02/18 00:00 Temperature 97.9 F 98.6 F Pulse Rate 87 84 Respiratory Rate 19 18 Blood Pressure 123/62 137/70 Pulse Oximetry 95 94 L 95 03/02/18 04:00 03/02/18 08:00 03/02/18 08:50 Temperature 97.4 F L 98.4 F Pulse Rate 68 53 L 53 L Respiratory Rate 18 17 Blood Pressure 119/59 L 130/71 Pulse Oximetry 95 94 L Intake & Output 03/01/18 03/02/18 03/02/18 18:59 06:59 18:59 Intake Total 480 / 480 630 / 630 Output Total 1600 / 1600 Balance 480 / 480 -970 / -970 Weight 96.6 kg Intake: IV 150 / 150 Oral 480 / 480 480 / 480 Output: Urine 1600 / 1600 Other: # Voids 6 # Bowel Movements 1 0 <Madonna Narayan - 03/02/18 11:20> Narrative: GENERAL: In NAD. SKIN: Warm and dry. NECK: No JVD or lymphadenopathy. CARDIOVASCULAR: Irregular. 2/6 systolic murmur appreciated at the left sternal border. RESPIRATORY: Occasional crackles auscultated at lung bases bilaterally. No wheezes or rhonchi appreciated. GASTROINTESTINAL: Abdomen soft, non-tender, nondistended. Bowel sounds present. MUSCULOSKELETAL: No cyanosis, 2+ pitting edema. <CameliadeeptiMadonna Nam - 03/02/18 11:20> Assessment and Plan - Assessment (1) CHF exacerbation Code(s): I50.9 - Heart failure, unspecified Status: Chronic (2) Atrial fibrillation with slow ventricular response Code(s): I48.91 - Unspecified atrial fibrillation Status: Acute (3) Elevated serum creatinine Code(s): R79.89 - Other specified abnormal findings of blood chemistry Status : Acute (4) Subclinical hypothyroidism Code(s): E03.9 - Hypothyroidism, unspecified Status: Acute (5) Glaucoma Code(s): H40.9 - Unspecified glaucoma Status: Acute (6) Thrombocytopenia Code(s): D69.6 - Thrombocytopenia, unspecified Status: Acute (7) Diabetes Code(s): E11.9 - Type 2 diabetes mellitus without complications Status: Acute (8) DVT prophylaxis Status: Acute (9) Nutrition, metabolism, and development symptoms Code(s): R63.8 - Other symptoms and signs concerning food and fluid intake Status: Acute <Brittney Castelan Gabriela - 03/08/18 09:42> (1) CHF exacerbation Code(s): I50.9 - Heart failure, unspecified Status: Chronic Plan: -2D echo notable for EF of 20%, moderate concentric left ventricular hypertrophy , abnormal septal motion consistent with an intraventricular conduction delay, and global left ventricular dysfunction -Mostly normal lipid panel, A1c 7.6 -Cardiology on board * DC Entresto due to allergic interaction. * Continue Coreg 6.25 mg twice daily * Continue hydralazine 25 mg TID and isosorbide mononitrate 30 mg daily. -Continue Lasix dose to 40 mg IV twice daily. Will probably be discharged on Lasix 80 mg BID. -Monitor daily BMP -Fluid restrict to 1.5 L daily -Strict I's and O's (2) Atrial fibrillation with slow ventricular response Code(s): I48.91 - Unspecified atrial fibrillation Status: Acute Plan: See plan above. Heparin Drip per cardiology (3) Elevated serum creatinine Code(s): R79.89 - Other specified abnormal findings of blood chemistry Status : Acute Plan: Unsure if this is his baseline. Possibly acute kidney injury from CHF exacerbation Trended down from 1.61 on admission to 1.26 today Will hold off of nephrotoxic drugs Monitor status with IV lasix (4) Subclinical hypothyroidism Code(s): E03.9 - Hypothyroidism, unspecified Status: Acute Plan: -TSH 6.650 on admission -Free T4 within normal limits at 0.92 -Not currently on thyroid hormone replacement -does not meet criteria -Recommend outpatient follow-up (5) Glaucoma Code(s): H40.9 - Unspecified glaucoma Status: Acute Plan: Continue home eyedrops (6) Thrombocytopenia Code(s): D69.6 - Thrombocytopenia, unspecified Status: Acute Plan: Platelet count downtrended to 87 from 91 on admission. Continue to monitor especially while patient is on heparin drip (7) Diabetes Code(s): E11.9 - Type 2 diabetes mellitus without complications Status: Acute Plan: HbA1c: 7.6. Low-dose sliding scale added. Patient to be to DC home on metformin 250 mg BID. (8) DVT prophylaxis Status: Acute Plan: Heparin drip per cardiology Continue to monitor platelets (9) Nutrition, metabolism, and development symptoms Code(s): R63.8 - Other symptoms and signs concerning food and fluid intake Status: Acute Plan: Fluids: Fluid restrict to 1.5 L Electrolytes: Hypocalcemic but not corrected calcium. Albumin ordered. Will replete if patient corrected calcium is low. Nutrition: Cardiac diet DNR/DNI <Madonna Narayan - 03/02/18 13:52> - Assessment and Plan 88-year-old male with past medical history of hyperlipidemia, CHF, irregular heartbeat presents with shortness of breath for the past couple weeks with a associated pedal edema that increased to his abdomen and associated decreased urinary output and frequency. Admitted for CHF exacerbation with elevated BNP. Patient found to be in A. fib with slow ventricular response. Cardiology consulted and 2D echo performed. Found to have EF of 20% with global wall ventricular dysfunction. Started on Coreg, Isosorbide mononitrate and hydralazine. Currently on heparin drip. <Madonna Narayan - 03/02/18 13:51> - Attending Attestation Patient seen and dw the resident team. Agree with the assessment and plan. <Brittney Castelan - 03/08/18 09:42> <Madonna Narayan - Last Filed: 03/02/18 13:52> (1) CHF exacerbation Qualifiers: Heart failure type: systolic Qualified Code(s): I50.23 - Acute on chronic systolic (congestive) heart failure <Brittney Castelan R - Last Filed: 03/08/18 09:42> (1) CHF exacerbation Qualifiers: Heart failure type: systolic Qualified Code(s): I50.23 - Acute on chronic systolic (congestive) heart failure <CameliadeeptiMadonna Nam - Last Filed: 03/02/18 13:52> (1) CHF exacerbation Qualifiers: Heart failure type: systolic Qualified Code(s): I50.23 - Acute on chronic systolic (congestive) heart failure <Brittney Castelan - Last Filed: 03/08/18 09:42> (1) CHF exacerbation Qualifiers: Heart failure type: systolic Qualified Code(s): I50.23 - Acute on chronic systolic (congestive) heart failure
--- NOTE | 2018-03-02 13:19 | P.PNCA ---
Subjective Interval history: Patient denies any CP, pressure, palpitations or dizziness. Patient does complain of edema in the lower extremities and mild SOB with activity. Patient states that the SOB is improving and he is feeling much better. Medications and Allergies Allergies Allergy/AdvReac Type Severity Reaction Status Date / Time lisinopril [From Zestril] Allergy Swelling Verified 02/27/18 10:45 Penicillins Allergy Hives Verified 02/27/18 10:29 Home Medications Medication Instructions Recorded Confirmed Type aspirin 81 mg PO DAILY 02/27/18 02/27/18 History brimonidine 1 drp OPHTHALMIC (EYE) BID 02/27/18 02/27/18 History carvedilol 6.25 mg PO BID 02/27/18 02/27/18 History ferrous sulfate 325 mg PO DAILY 02/27/18 02/27/18 History finasteride 5 mg PO DAILY 02/27/18 02/27/18 History furosemide 40 mg PO DAILY 02/27/18 02/27/18 History latanoprost 1 drp OPHTHALMIC (EYE) QPM 02/27/18 02/27/18 History yqjzcczz-sov-SC-lycopen-lutein 1 tab PO DAILY 02/27/18 02/27/18 History [Centrum Silver Men] potassium chloride 10 meq PO DAILY 02/27/18 02/27/18 History potassium gluconate 550 mg PO DAILY 02/27/18 02/27/18 History simvastatin 80 mg PO QPM 02/27/18 02/27/18 History tamsulosin 0.4 mg PO DAILY 02/27/18 02/27/18 History Active Medications: Active Medications Acetaminophen (Tylenol) 650 mg PO Q4H PRN PRN Reason: Temp > 100.4 Al Hydroxide/Mg Hydroxide (Milk Of Magnrebel Liq) 30 ml PO Q12H PRN PRN Reason: Mild Constipation Atorvastatin Calcium (Lipitor) 40 mg PO DAILY@1800 [facility] Last Admin: 03/01/18 17:25 Dose: 40 mg Bisacodyl (Dulcolax Supp) 10 mg RECTAL DAILY PRN PRN Reason: SEVERE CONSITIPATION Brimonidine Tartrate (Alphagan 0.2% Opth Drops) 1 drops EACH EYE BID [facility] Last Admin: 03/02/18 09:34 Dose: 1 drops Carvedilol (Coreg) 6.25 mg PO BID [facility] Last Admin: 03/02/18 09:32 Dose: 6.25 mg Dextrose (D50w Vial) 50 ml IV.PUSH UNSCH PRN PRN Reason: PER HYPOGLYCEMIA PROTOCOL Ferrous Sulfate (Ferosul) 325 mg PO DAILY [facility] Last Admin: 03/02/18 09:32 Dose: 325 mg Finasteride (Proscar) 5 mg PO DAILY [facility] Last Admin: 03/02/18 09:33 Dose: 5 mg Furosemide (Lasix Inj) 40 mg IV.PUSH BID@0900,1800 [facility] Last Admin: 03/02/18 09:34 Dose: 40 mg Glucagon (Glucagon Inj) 1 mg OTHER PRN PRN PRN Reason: for Hypoglycemia Protocol Hydralazine HCl (Apresoline) 25 mg PO TID [facility] Last Admin: 03/02/18 12:54 Dose: 25 mg Insulin Aspart (Novolog Insulin Correctional Sugar Inj) 0 unit SQ ACHS [facility]; Protocol Last Admin: 03/02/18 12:45 Dose: Not Given Isosorbide Mononitrate (Imdur) 30 mg PO DAILY@0700 [facility] Last Admin: 03/02/18 06:54 Dose: 30 mg Lactulose (Lactulose Liq) 30 ml PO DAILY PRN PRN Reason: SEVERE CONSITIPATION Latanoprost (Xalatan 0.005% Opth Drops) 1 drop EACH EYE DAILY@1800 [facility] Last Admin: 03/01/18 17:52 Dose: 1 drop Multivitamins/Minerals (Theragran-M) 1 tab PO DAILY [facility] Last Admin: 03/02/18 09:33 Dose: 1 tab Ondansetron HCl (Zofran Inj) 4 mg IV.PUSH Q6H PRN PRN Reason: NAUSEA OR VOMITING Rivaroxaban (Xarelto) 15 mg PO DAILY [facility] Last Admin: 03/02/18 09:33 Dose: 15 mg Senna/Docusate Sodium (Mary-Colace) 1 tab PO BID [facility] Last Admin: 03/02/18 09:34 Dose: Not Given Sennosides (Senokot) 17.2 mg PO Q12H PRN PRN Reason: Moderate Constipation Sodium Chloride (Ns Flush) 2 ml IV.FLUSH BID [facility] Last Admin: 03/02/18 09:34 Dose: 2 ml Sodium Chloride (Ns Flush) 2 ml IV.FLUSH PRN PRN PRN Reason: FLUSH AFTER USING IV ACCESS Tamsulosin HCl (Flomax) 0.4 mg PO DAILY [facility] Last Admin: 03/02/18 09:32 Dose: 0.4 mg Physical Exam Vital signs: Vital Signs 03/01/18 16:00 03/01/18 19:15 03/01/18 20:00 Temperature 97.1 F L 97.9 F Pulse Rate 54 L 87 87 Respiratory Rate 20 19 Blood Pressure 135/68 123/62 Pulse Oximetry 93 L 95 03/01/18 20:20 03/02/18 00:00 03/02/18 04:00 Temperature 98.6 F 97.4 F L Pulse Rate 84 68 Respiratory Rate 18 18 Blood Pressure 137/70 119/59 L Pulse Oximetry 94 L 95 95 03/02/18 08:00 03/02/18 08:50 03/02/18 12:00 Temperature 98.4 F 97.9 F Pulse Rate 53 L 53 L 50 L Respiratory Rate 17 17 Blood Pressure 130/71 107/57 L Pulse Oximetry 94 L 93 L Intake & Output 03/01/18 03/02/18 03/02/18 18:59 06:59 18:59 Intake Total 480 / 480 630 / 630 Output Total 1600 / 1600 Balance 480 / 480 -970 / -970 Weight 96.6 kg Intake: IV 150 / 150 Oral 480 / 480 480 / 480 Output: Urine 1600 / 1600 Other: # Voids 6 # Bowel Movements 1 0 - Constitutional no acute distress - Routine HEENT Exam Head: Present: normocephalic Eye: Present: PERRL ENT: Present: mucous membranes moist - Routine Neck Exam Present: full ROM - Routine Respiratory Exam Present: accessory muscle use - Routine Cardiovascular Exam Present: S1, S2, bradycardia, irregular rhythm - Routine Abdominal Exam Present: normoactive bowel sounds - Routine Extremities Exam Present: edema, full ROM, pulses intact, normal capillary refill. Absent: cyanosis, clubbing - Routine Skin Exam Present: intact - Routine Neurological Exam Present: oriented X3 - Detailed Neurological Exam: Coma Scale Eye Opening: Spontaneous Verbal Response: Oriented Motor Response: [place] commands [place] Coma Scale Total: 15 - Routine Psychiatric Exam Present: normal affect Results 03/02/18 06:26 03/02/18 06:26 Cardiac Enzymes 03/01/18 Range/Units 05:52 AST 42 H (15-37) U/L Coagulation 02/28/18 03/01/18 Range/Units 16:22 05:52 APTT 60.4 H 62.3 H (23.4-31.7) sec CBC 03/01/18 03/02/18 Range/Units 05:52 06:26 WBC 5.0 4.3 (4.0-11.0) th/mm3 RBC 4.44 L 4.35 L (4.50-5.90) mil/mm3 Hgb 14.8 14.8 (13.0-17.0) gm/dL Hct 43.9 43.1 (39.0-51.0) % Plt Count 96 L 87 L (150-450) th/mm3 Neut # (Auto) 3.4 (1.8-7.7) th/mm3 Lymph # (Auto) 0.8 L (1.0-4.8) th/mm3 [place] # (Auto) 0.6 (0.0-0.9) th/mm3 Eos # (Auto) 0.1 (0.0-0.4) th/mm3 Baso # (Auto) 0.0 (0.0-0.2) th/mm3 Comprehensive Metabolic Panel 02/28/18 03/01/18 03/01/18 Range/Units 16:22 05:52 13:49 Sodium 138 139 138 (136-145) meq/L Potassium 3.5 3.4 L 3.6 (3.5-5.1) meq/L Chloride 101 102 100 (98-107) meq/L Carbon Dioxide 27.8 29.6 30.5 (21.0-32.0) meq/L BUN 26 H 28 H 28 H (7-18) mg/dL Creatinine 1.53 H 1.39 H 1.33 H (0.60-1.30) mg/dL Calcium 8.2 L 8.1 L 8.2 L (8.5-10.1) mg/dL AST 42 H (15-37) U/L ALT 34 (12-78) U/L Alkaline Phosphatase 174 H (45-117) U/L Total Protein 5.9 L (6.4-8.2) g/dL Albumin 2.8 L (3.4-5.0) g/dL 03/02/18 Range/Units 06:26 Sodium 139 (136-145) meq/L Potassium 3.7 (3.5-5.1) meq/L Chloride 102 (98-107) meq/L Carbon Dioxide 27.6 (21.0-32.0) meq/L BUN 28 H (7-18) mg/dL Creatinine 1.26 (0.60-1.30) mg/dL Calcium 8.3 L (8.5-10.1) mg/dL AST (15-37) U/L ALT (12-78) U/L Alkaline Phosphatase (45-117) U/L Total Protein (6.4-8.2) g/dL Albumin (3.4-5.0) g/dL Intake and Output 03/01/18 03/02/18 03/02/18 22:59 06:59 14:59 Intake Total 480 / 480 630 / 630 Output Total 1600 / 1600 Balance 480 / 480 -970 / -970 Intake: IV 150 / 150 Oral 480 / 480 480 / 480 Output: Urine 1600 / 1600 Other: # Voids 6 # Bowel Movements 1 0 Weight 96.6 kg Assessment and Plan - Assessment (1) CHF exacerbation Code(s): I50.9 - Heart failure, unspecified Status: Chronic (2) Atrial fibrillation with slow ventricular response Code(s): I48.91 - Unspecified atrial fibrillation Status: Acute (3) Edema Code(s): R60.9 - Edema, unspecified Status: Acute - Plan Continue with current cardiac treatment plan and adjust as needed. Continue therapy with Coreg 6.25mg BID, hydralazine and isosorbide mononitrate for CHF treatment and titrate as needed. Renal function slightly improved this morning. We will continue to monitor BMP daily to evaluate renal function and potassium levels. We will continue to monitor the patient during his hospitalization. The patient was seen and evaluated by Dr. Tipton who participated in care, management and decision making. - Attending Attestation Patient seen and examined. I reviewed and agree with the evaluation and plan as presented. Continue and titrate tx for CHF. Increase activity, PT. (1) CHF exacerbation Qualifiers: Heart failure type: systolic Qualified Code(s): I50.23 - Acute on chronic systolic (congestive) heart failure
[2018-03-02] MEDS: Latanoprost 0.005% Opth Drops 2.5 ML Bottle EACH EYE SCH (17:44)
--- NOTE | 2018-03-03 08:37 | P.PNFP ---
Subjective Interval history: Patient seen and examined at bedside this morning. He is resting comfortably in bed. Denies any shortness of breath. States that his leg swelling has decreased dramatically. He denies any chest pain, abdominal pain, problems with urination or defecation. All questions were answered at bedside. <Madonna Quach - 03/03/18 10:17> Results - Labs Result diagrams: 03/02/18 06:26 03/03/18 09:41 <Gary Higginbotham - 03/03/18 14:51> Abnormal lab results 03/02/18 03/02/18 03/03/18 Range/Units 17:08 22:20 09:41 Potassium 3.4 L (3.5-5.1) meq/L BUN 24 H (7-18) mg/dL Creatinine 1.43 H (0.60-1.30) mg/dL Estimated GFR 47 L (>89) mL/min POC Glucose 123 H 173 H (68-110) mg/dl 03/03/18 Range/Units 13:26 Potassium (3.5-5.1) meq/L BUN (7-18) mg/dL Creatinine (0.60-1.30) mg/dL Estimated GFR (>89) mL/min POC Glucose 132 H (68-110) mg/dl BMP 03/03/18 09:41 Sodium 137 Potassium 3.4 L Chloride 99 Carbon Dioxide 31.4 BUN 24 H Creatinine 1.43 H Calcium 8.7 <Gary Higginbotham - 03/03/18 14:51> Abnormal lab results 03/02/18 03/02/18 03/02/18 Range/Units 06:26 12:27 17:08 POC Glucose 126 H 123 H (68-110) mg/dl Albumin 2.9 L (3.4-5.0) g/dL 03/02/18 Range/Units 22:20 POC Glucose 173 H (68-110) mg/dl Albumin (3.4-5.0) g/dL Liver Function 03/02/18 Range/Units 06:26 Albumin 2.9 L (3.4-5.0) g/dL <Madonna Quach - 03/03/18 08:37> Physical Exam Vital signs: Vital Signs 03/02/18 16:00 03/02/18 20:00 03/03/18 00:00 Temperature 97.2 F L 97.2 F L 98 F Pulse Rate 44 L 59 L 46 L Respiratory Rate 17 18 18 Blood Pressure 115/61 103/54 L 92/53 L Pulse Oximetry 95 95 93 L 03/03/18 04:00 03/03/18 08:00 03/03/18 10:11 Temperature 97.4 F L 97.8 F Pulse Rate 53 L 63 Respiratory Rate 18 22 Blood Pressure 106/58 L 133/76 Pulse Oximetry 94 L 95 96 03/03/18 12:00 Temperature 97.6 F Pulse Rate 56 L Respiratory Rate 20 Blood Pressure 122/64 Pulse Oximetry 95 Intake & Output 03/02/18 03/03/18 03/03/18 18:59 06:59 18:59 Intake Total 720 / 720 360 / 360 Output Total 850 / 850 1300 / 1300 Balance -130 / -130 -940 / -940 Weight 96 kg Intake: Oral 720 / 720 360 / 360 Output: Urine 850 / 850 1300 / 1300 Other: Date of Last Bowel Movement 03/02/18 # Bowel Movements 1 0 <Gary Higginbotham - 03/03/18 14:51> Vital Signs 03/02/18 08:50 03/02/18 12:00 03/02/18 16:00 Temperature 97.9 F 97.2 F L Pulse Rate 53 L 42 L 44 L Respiratory Rate 17 17 Blood Pressure 107/57 L 115/61 Pulse Oximetry 93 L 95 03/02/18 20:00 03/03/18 00:00 03/03/18 04:00 Temperature 97.2 F L 98 F 97.4 F L Pulse Rate 59 L 46 L 53 L Respiratory Rate 18 18 18 Blood Pressure 103/54 L 92/53 L 106/58 L Pulse Oximetry 95 93 L 94 L Intake & Output 03/02/18 03/03/18 03/03/18 18:59 06:59 18:59 Intake Total 720 / 720 360 / 360 Output Total 850 / 850 1300 / 1300 Balance -130 / -130 -940 / -940 Weight 96 kg Intake: Oral 720 / 720 360 / 360 Output: Urine 850 / 850 1300 / 1300 Other: Date of Last Bowel Movement 03/02/18 # Bowel Movements 1 0 <Madonna Quach - 03/03/18 08:37> Narrative: GENERAL: In NAD. SKIN: Warm and dry. NECK: No JVD or lymphadenopathy. CARDIOVASCULAR: Irregular. 2/6 systolic murmur appreciated at the left sternal border. RESPIRATORY: Clear to auscultation bilaterally. No wheezes or rhonchi appreciated. GASTROINTESTINAL: Abdomen soft, non-tender, nondistended. Bowel sounds present. MUSCULOSKELETAL: No cyanosis, 2+ pitting edema. <Madonna Quach - 03/03/18 10:37> Assessment and Plan - Assessment (1) CHF exacerbation Code(s): I50.9 - Heart failure, unspecified Status: Chronic (2) Atrial fibrillation with slow ventricular response Code(s): I48.91 - Unspecified atrial fibrillation Status: Acute (3) Elevated serum creatinine Code(s): R79.89 - Other specified abnormal findings of blood chemistry Status : Acute (4) Subclinical hypothyroidism Code(s): E03.9 - Hypothyroidism, unspecified Status: Acute (5) Glaucoma Code(s): H40.9 - Unspecified glaucoma Status: Acute (6) Thrombocytopenia Code(s): D69.6 - Thrombocytopenia, unspecified Status: Acute (7) Diabetes Code(s): E11.9 - Type 2 diabetes mellitus without complications Status: Acute (8) DVT prophylaxis Status: Acute (9) Nutrition, metabolism, and development symptoms Code(s): R63.8 - Other symptoms and signs concerning food and fluid intake Status: Acute <Gary Higginbotham - 03/03/18 14:51> (1) CHF exacerbation Code(s): I50.9 - Heart failure, unspecified Status: Chronic Plan: -2D echo notable for EF of 20%, moderate concentric left ventricular hypertrophy , abnormal septal motion consistent with an intraventricular conduction delay, and global left ventricular dysfunction -Mostly normal lipid panel, A1c 7.6 -Cardiology on board * DC Entresto due to allergic interaction. * Continue Coreg 6.25 mg twice daily * Continue hydralazine 25 mg TID. Hold AM dose due to low BP. * Continue isosorbide mononitrate 30 mg daily. -Continue Lasix dose to 40 mg IV twice daily. Switched to Lasix PO 80 mg BID. -Monitor daily BMP -Fluid restrict to 1.5 L daily -Strict I's and O's (2) Atrial fibrillation with slow ventricular response Code(s): I48.91 - Unspecified atrial fibrillation Status: Acute Plan: See plan above. Xarelto (3) Elevated serum creatinine Code(s): R79.89 - Other specified abnormal findings of blood chemistry Status : Acute Plan: Unsure if this is his baseline. Possibly acute kidney injury from CHF exacerbation Trended down from 1.61 on admission to 1.26 yesterday Will hold off of nephrotoxic drugs Monitor status with IV lasix (4) Subclinical hypothyroidism Code(s): E03.9 - Hypothyroidism, unspecified Status: Acute Plan: -TSH 6.650 on admission -Free T4 within normal limits at 0.92 -Not currently on thyroid hormone replacement -does not meet criteria -Recommend outpatient follow-up (5) Glaucoma Code(s): H40.9 - Unspecified glaucoma Status: Acute Plan: Continue home eyedrops (6) Thrombocytopenia Code(s): D69.6 - Thrombocytopenia, unspecified Status: Acute Plan: Platelet count downtrended to 87 from 91 on admission. (7) Diabetes Code(s): E11.9 - Type 2 diabetes mellitus without complications Status: Acute Plan: HbA1c: 7.6. Low-dose sliding scale added. Patient to be to DC home on metformin 250 mg BID. (8) DVT prophylaxis Status: Acute Plan: Xarelto (9) Nutrition, metabolism, and development symptoms Code(s): R63.8 - Other symptoms and signs concerning food and fluid intake Status: Acute Plan: Fluids: Fluid restrict to 1.5 L Electrolytes: Corrected Calcium 9.8 . Monitor and replete as needed. Nutrition: Cardiac diet DNR/DNI <Madonna Quach - 03/03/18 12:18> - Assessment and Plan 88-year-old male with past medical history of hyperlipidemia, CHF, irregular heartbeat presents with shortness of breath for the past couple weeks with a associated pedal edema that increased to his abdomen and associated decreased urinary output and frequency. Admitted for CHF exacerbation with elevated BNP. Patient found to be in A. fib with slow ventricular response. Cardiology consulted and 2D echo performed. Found to have EF of 20% with global wall ventricular dysfunction. Started on Coreg, Isosorbide mononitrate and hydralazine. Currently on heparin drip. <Madonna Quach - 03/03/18 10:53> - Attending Attestation Patient examined independently of resident physicians and patient case discussed with resident physician I have read the above note and agree with the assessment/plan as discussed with me I was involved in all medical decision making for this patient Gary Higginbotham MD <Gary Higginbotham - 03/03/18 14:51> <Madonna Quach - Last Filed: 03/03/18 12:18> (1) CHF exacerbation Qualifiers: Heart failure type: systolic Qualified Code(s): I50.23 - Acute on chronic systolic (congestive) heart failure <Gary Higginbotham - Last Filed: 03/03/18 14:51> (1) CHF exacerbation Qualifiers: Heart failure type: systolic Qualified Code(s): I50.23 - Acute on chronic systolic (congestive) heart failure <Madonna Quach - Last Filed: 03/03/18 12:18> (1) CHF exacerbation Qualifiers: Heart failure type: systolic Qualified Code(s): I50.23 - Acute on chronic systolic (congestive) heart failure <Gary Higginbotham - Last Filed: 03/03/18 14:51> (1) CHF exacerbation Qualifiers: Heart failure type: systolic Qualified Code(s): I50.23 - Acute on chronic systolic (congestive) heart failure
[2018-03-03] MEDS: Furosemide 80 MG Tablet PO SCH ×2 (08:51→18:40)
[2018-03-03] MEDS: Finasteride 5 MG Tablet PO SCH (08:51)
[2018-03-03] MEDS: Insulin NovoLOG Aspart Correctional Sugar Inj SQ SCH ×4 (08:52→20:02)
[2018-03-03] MEDS: Rivaroxaban 15 MG Tablet PO SCH (08:52)
[2018-03-03] MEDS: Brimonidine 0.2% Opth Drops 5 ML Bottle EACH EYE SCH ×2 (08:52→20:00)
[2018-03-03] MEDS: Isosorbide Mononitrate 30 MG ER 24HR Tablet (Imdur) PO SCH (08:52)
[2018-03-03] MEDS: Ferrous Sulfate 325 MG Tablet PO SCH (08:52)
[2018-03-03] MEDS: Multivitamin/Minerals Therapeutic Tablet PO SCH (08:52)
[2018-03-03] MEDS: Senna/Docusate Sodium 8.6/50 MG Tablet PO SCH ×2 (08:52→20:00)
[2018-03-03] MEDS: Carvedilol 6.25 MG Tablet PO SCH ×2 (09:31→20:00)
[2018-03-03 11:00] LABS: Calcium 8.7 mg/dL (8.5-10.1); Carbon Dioxide 31.4 meq/L (21.0-32.0); Potassium 3.4 meq/L (3.5-5.1)
--- NOTE | 2018-03-03 13:10 | P.PNCA ---
Subjective Interval history: Patient denies any CP, pressure, palpitations or dizziness. Patient does complain of edema in the LE and mild SOB with activity. Medications and Allergies Allergies Allergy/AdvReac Type Severity Reaction Status Date / Time lisinopril [From Zestril] Allergy Swelling Verified 02/27/18 10:45 Penicillins Allergy Hives Verified 02/27/18 10:29 Home Medications Medication Instructions Recorded Confirmed Type aspirin 81 mg PO DAILY 02/27/18 02/27/18 History brimonidine 1 drp OPHTHALMIC (EYE) BID 02/27/18 02/27/18 History carvedilol 6.25 mg PO BID 02/27/18 02/27/18 History ferrous sulfate 325 mg PO DAILY 02/27/18 02/27/18 History finasteride 5 mg PO DAILY 02/27/18 02/27/18 History furosemide 40 mg PO DAILY 02/27/18 02/27/18 History latanoprost 1 drp OPHTHALMIC (EYE) QPM 02/27/18 02/27/18 History orddxzfz-asd-HZ-lycopen-lutein 1 tab PO DAILY 02/27/18 02/27/18 History [Centrum Silver Men] potassium chloride 10 meq PO DAILY 02/27/18 02/27/18 History potassium gluconate 550 mg PO DAILY 02/27/18 02/27/18 History simvastatin 80 mg PO QPM 02/27/18 02/27/18 History tamsulosin 0.4 mg PO DAILY 02/27/18 02/27/18 History Active Medications: Active Medications Acetaminophen (Tylenol) 650 mg PO Q4H PRN PRN Reason: Temp > 100.4 Al Hydroxide/Mg Hydroxide (Milk Of Magnrebel Liq) 30 ml PO Q12H PRN PRN Reason: Mild Constipation Atorvastatin Calcium (Lipitor) 40 mg PO DAILY@1800 [facility] Last Admin: 03/02/18 17:43 Dose: 40 mg Bisacodyl (Dulcolax Supp) 10 mg RECTAL DAILY PRN PRN Reason: SEVERE CONSITIPATION Brimonidine Tartrate (Alphagan 0.2% Opth Drops) 1 drops EACH EYE BID [facility] Last Admin: 03/03/18 08:52 Dose: 1 drops Carvedilol (Coreg) 6.25 mg PO BID [facility] Last Admin: 03/03/18 09:31 Dose: Not Given Dextrose (D50w Vial) 50 ml IV.PUSH UNSCH PRN PRN Reason: PER HYPOGLYCEMIA PROTOCOL Ferrous Sulfate (Ferosul) 325 mg PO DAILY [facility] Last Admin: 03/03/18 08:52 Dose: 325 mg Finasteride (Proscar) 5 mg PO DAILY [facility] Last Admin: 03/03/18 08:51 Dose: 5 mg Furosemide (Lasix) 80 mg PO BID@0900,1800 [facility] Last Admin: 03/03/18 08:51 Dose: 80 mg Glucagon (Glucagon Inj) 1 mg OTHER PRN PRN PRN Reason: for Hypoglycemia Protocol Hydralazine HCl (Apresoline) 25 mg PO TID [facility] Last Admin: 03/02/18 17:43 Dose: 25 mg Insulin Aspart (Novolog Insulin Correctional Sugar Inj) 0 unit SQ ACHS [facility]; Protocol Last Admin: 03/03/18 08:52 Dose: Not Given Isosorbide Mononitrate (Imdur) 30 mg PO DAILY@0700 [facility] Last Admin: 03/03/18 08:52 Dose: 30 mg Lactulose (Lactulose Liq) 30 ml PO DAILY PRN PRN Reason: SEVERE CONSITIPATION Latanoprost (Xalatan 0.005% Opth Drops) 1 drop EACH EYE DAILY@1800 [facility] Last Admin: 03/02/18 17:44 Dose: 1 drop Multivitamins/Minerals (Theragran-M) 1 tab PO DAILY [facility] Last Admin: 03/03/18 08:52 Dose: 1 tab Ondansetron HCl (Zofran Inj) 4 mg IV.PUSH Q6H PRN PRN Reason: NAUSEA OR VOMITING Rivaroxaban (Xarelto) 15 mg PO DAILY [facility] Last Admin: 03/03/18 08:52 Dose: 15 mg Senna/Docusate Sodium (Mary-Colace) 1 tab PO BID [facility] Last Admin: 03/03/18 08:52 Dose: 1 tab Sennosides (Senokot) 17.2 mg PO Q12H PRN PRN Reason: Moderate Constipation Sodium Chloride (Ns Flush) 2 ml IV.FLUSH BID [facility] Last Admin: 03/03/18 08:52 Dose: 2 ml Sodium Chloride (Ns Flush) 2 ml IV.FLUSH PRN PRN PRN Reason: FLUSH AFTER USING IV ACCESS Tamsulosin HCl (Flomax) 0.4 mg PO DAILY [facility] Last Admin: 03/03/18 08:51 Dose: 0.4 mg Physical Exam Vital signs: Vital Signs 03/02/18 16:00 03/02/18 20:00 03/03/18 00:00 Temperature 97.2 F L 97.2 F L 98 F Pulse Rate 44 L 59 L 46 L Respiratory Rate 17 18 18 Blood Pressure 115/61 103/54 L 92/53 L Pulse Oximetry 95 95 93 L 03/03/18 04:00 03/03/18 08:00 03/03/18 10:11 Temperature 97.4 F L 97.8 F Pulse Rate 53 L 63 Respiratory Rate 18 22 Blood Pressure 106/58 L 133/76 Pulse Oximetry 94 L 95 96 Intake & Output 03/02/18 03/03/18 03/03/18 18:59 06:59 18:59 Intake Total 720 / 720 360 / 360 Output Total 850 / 850 1300 / 1300 Balance -130 / -130 -940 / -940 Weight 96 kg Intake: Oral 720 / 720 360 / 360 Output: Urine 850 / 850 1300 / 1300 Other: Date of Last Bowel Movement 03/02/18 # Bowel Movements 1 0 - Constitutional no acute distress - Routine HEENT Exam Head: Present: normocephalic Eye: Present: PERRL ENT: Present: mucous membranes moist - Routine Neck Exam Present: full ROM - Routine Respiratory Exam Present: crackles Comments: crackles bilateral lower lobes - Routine Cardiovascular Exam Present: S1, S2, irregular rhythm - Routine Abdominal Exam Present: normoactive bowel sounds - Routine Extremities Exam Present: edema, full ROM, pulses intact, normal capillary refill. Absent: cyanosis, clubbing - Routine Skin Exam Present: intact - Routine Neurological Exam Present: oriented X3 - Detailed Neurological Exam: Coma Scale Eye Opening: Spontaneous Verbal Response: Oriented Motor Response: Obey commands Alejandro Coma Scale Total: 15 - Routine Psychiatric Exam Present: normal affect Results 03/02/18 06:26 03/03/18 09:41 CBC 03/02/18 Range/Units 06:26 WBC 4.3 (4.0-11.0) th/mm3 RBC 4.35 L (4.50-5.90) mil/mm3 Hgb 14.8 (13.0-17.0) gm/dL Hct 43.1 (39.0-51.0) % Plt Count 87 L (150-450) th/mm3 Comprehensive Metabolic Panel 03/01/18 03/02/18 03/02/18 Range/Units 13:49 06:26 06:26 Sodium 138 139 (136-145) meq/L Potassium 3.6 3.7 (3.5-5.1) meq/L Chloride 100 102 (98-107) meq/L Carbon Dioxide 30.5 27.6 (21.0-32.0) meq/L BUN 28 H 28 H (7-18) mg/dL Creatinine 1.33 H 1.26 (0.60-1.30) mg/dL Calcium 8.2 L 8.3 L (8.5-10.1) mg/dL Albumin 2.9 L (3.4-5.0) g/dL 03/03/18 Range/Units 09:41 Sodium 137 (136-145) meq/L Potassium 3.4 L (3.5-5.1) meq/L Chloride 99 (98-107) meq/L Carbon Dioxide 31.4 (21.0-32.0) meq/L BUN 24 H (7-18) mg/dL Creatinine 1.43 H (0.60-1.30) mg/dL Calcium 8.7 (8.5-10.1) mg/dL Albumin (3.4-5.0) g/dL Intake and Output 03/02/18 03/03/18 03/03/18 22:59 06:59 14:59 Intake Total 720 / 720 360 / 360 Output Total 850 / 850 1300 / 1300 Balance -130 / -130 -940 / -940 Intake: Oral 720 / 720 360 / 360 Output: Urine 850 / 850 1300 / 1300 Other: Date of Last Bowel Movement 03/02/18 # Bowel Movements 1 0 Weight 96 kg Assessment and Plan - Assessment (1) CHF exacerbation Code(s): I50.9 - Heart failure, unspecified Status: Chronic (2) Atrial fibrillation with slow ventricular response Code(s): I48.91 - Unspecified atrial fibrillation Status: Acute (3) Edema Code(s): R60.9 - Edema, unspecified Status: Acute - Plan Patient has slightly decreased renal function compared to yesterday, will decrease his Lasix to 40mg BID. Patient has been bradycardiac in the 40-50's; he has been asymptomatic, will continue to monitor. We will continue to monitor his renal function and potassium level with daily BMP. Continue therapy for CHF. We will continue to monitor the patient during his hospitalization. The patient was seen and evaluated by Dr. Tipton who participated in care, management and decision making. - Attending Attestation Patient seen and examined. I reviewed and agree with the evaluation and plan as presented. Continue tx for CHF including carvedilol, Imdur and hydralazine. Increase activity, PT. (1) CHF exacerbation Qualifiers: Heart failure type: systolic Qualified Code(s): I50.23 - Acute on chronic systolic (congestive) heart failure
[2018-03-03] MEDS: hydrALAZINE 25 MG Tablet PO SCH ×2 (13:29→18:40)
[2018-03-03] MEDS: Latanoprost 0.005% Opth Drops 2.5 ML Bottle EACH EYE SCH (18:40)
[2018-03-04 00:02] LABS: Baso # (Auto) 0.1 th/mm3 (0.0-0.2); Baso % (Auto) 1.1 % (0.0-2.0); Eos # (Auto) 0.1 th/mm3 (0.0-0.4); Eos % (Auto) 2.1 % (0.0-4.0); Hematocrit 41.4 % (39.0-51.0); Hemoglobin 14.3 gm/dL (13.0-17.0); Lymph # (Auto) 0.7 th/mm3 (1.0-4.8); Lymph % (Auto) 14.6 % (9.0-44.0); Mean Corpuscular HGB Conc 34.5 % (32.0-36.0); Mean Corpuscular Hemoglobin 33.7 pg (27.0-34.0); Mean Corpuscular Volume 97.7 fL (80.0-100.0); Mean Platelet Volume 10.2 fL (7.0-11.0); Mono # (Auto) 0.7 th/mm3 (0.0-0.9); Mono % (Auto) 14.9 % (0.0-8.0); Neut # (Auto) 3.3 th/mm3 (1.8-7.7); Neut % (Auto) 67.3 % (16.0-70.0); Platelet Count 90 th/mm3 (150-450); Red Blood Count 4.24 mil/mm3 (4.50-5.90); Red Cell Distribution Width 17.3 % (11.6-17.2); White Blood Count 4.9 th/mm3 (4.0-11.0)
[2018-03-04 00:52] LABS: Ovalocytes 1+; Platelet Morphology Normal (Normal)
[2018-03-04] MEDS: Isosorbide Mononitrate 30 MG ER 24HR Tablet (Imdur) PO SCH (06:20)
[2018-03-04] MEDS: Insulin NovoLOG Aspart Correctional Sugar Inj SQ SCH ×4 (09:07→21:43)
[2018-03-04] MEDS: Rivaroxaban 15 MG Tablet PO SCH (09:12)
[2018-03-04] MEDS: Multivitamin/Minerals Therapeutic Tablet PO SCH (09:12)
[2018-03-04] MEDS: Senna/Docusate Sodium 8.6/50 MG Tablet PO SCH ×2 (09:12→21:45)
[2018-03-04] MEDS: Furosemide 80 MG Tablet PO SCH ×2 (09:12→18:25)
[2018-03-04] MEDS: Ferrous Sulfate 325 MG Tablet PO SCH (09:12)
[2018-03-04] MEDS: Finasteride 5 MG Tablet PO SCH (09:12)
[2018-03-04] MEDS: hydrALAZINE 25 MG Tablet PO SCH ×3 (09:12→18:25)
[2018-03-04] MEDS: Brimonidine 0.2% Opth Drops 5 ML Bottle EACH EYE SCH ×2 (09:13→21:45)
[2018-03-04] MEDS: Carvedilol 6.25 MG Tablet PO SCH ×2 (09:13→21:45)
[2018-03-04 09:19] LABS: Calcium 8.7 mg/dL (8.5-10.1); Carbon Dioxide 32.3 meq/L (21.0-32.0); Potassium 3.3 meq/L (3.5-5.1)
--- NOTE | 2018-03-04 10:51 | P.PNFP ---
Subjective Interval history: Patient is doing much better this morning, he denies chest pain or shortness of breath. He still has some swelling in his legs but is much better than before. He is excited to go home today. <Yolanda Bradshaw U - 03/04/18 15:02> Results - Labs Result diagrams: 03/03/18 23:23 03/04/18 08:10 <Gary Higginbotham - 03/04/18 21:11> Abnormal lab results 03/03/18 03/04/18 03/04/18 Range/Units 23:23 08:10 11:48 RBC 4.24 L (4.50-5.90) mil/mm3 RDW 17.3 H (11.6-17.2) % Plt Count 90 L (150-450) th/mm3 [place] % (Auto) 14.9 H (0.0-8.0) % Lymph # (Auto) 0.7 L (1.0-4.8) th/mm3 Platelet Estimate Low L (Normal) Ovalocytes 1+ H (None) Potassium 3.3 L (3.5-5.1) meq/L Carbon Dioxide 32.3 H (21.0-32.0) meq/L BUN 23 H (7-18) mg/dL Creatinine 1.42 H (0.60-1.30) mg/dL Estimated GFR 47 L (>89) mL/min POC Glucose 174 H (68-110) mg/dl 03/04/18 03/04/18 Range/Units 16:08 20:07 RBC (4.50-5.90) mil/mm3 RDW (11.6-17.2) % Plt Count (150-450) th/mm3 [place] % (Auto) (0.0-8.0) % Lymph # (Auto) (1.0-4.8) th/mm3 Platelet Estimate (Normal) Ovalocytes (None) Potassium (3.5-5.1) meq/L Carbon Dioxide (21.0-32.0) meq/L BUN (7-18) mg/dL Creatinine (0.60-1.30) mg/dL Estimated GFR (>89) mL/min POC Glucose 139 H 140 H (68-110) mg/dl Short CBC 03/03/18 Range/Units 23:23 WBC 4.9 (4.0-11.0) th/mm3 Hgb 14.3 (13.0-17.0) gm/dL Hct 41.4 (39.0-51.0) % Plt Count 90 L (150-450) th/mm3 [facility] 03/04/18 08:10 Sodium 138 Potassium 3.3 L Chloride 100 Carbon Dioxide 32.3 H BUN 23 H Creatinine 1.42 H Calcium 8.7 <Gary Higginbotham - 03/04/18 21:11> Abnormal lab results 03/03/18 03/03/18 03/03/18 Range/Units 09:41 13:26 16:46 RBC (4.50-5.90) mil/mm3 RDW (11.6-17.2) % Plt Count (150-450) th/mm3 [place] % (Auto) (0.0-8.0) % Lymph # (Auto) (1.0-4.8) th/mm3 Platelet Estimate (Normal) Ovalocytes (None) Potassium 3.4 L (3.5-5.1) meq/L Carbon Dioxide (21.0-32.0) meq/L BUN 24 H (7-18) mg/dL Creatinine 1.43 H (0.60-1.30) mg/dL Estimated GFR 47 L (>89) mL/min POC Glucose 132 H 135 H (68-110) mg/dl 03/03/18 03/03/18 03/04/18 Range/Units 19:53 23:23 08:10 RBC 4.24 L (4.50-5.90) mil/mm3 RDW 17.3 H (11.6-17.2) % Plt Count 90 L (150-450) th/mm3 [place] % (Auto) 14.9 H (0.0-8.0) % Lymph # (Auto) 0.7 L (1.0-4.8) th/mm3 Platelet Estimate Low L (Normal) Ovalocytes 1+ H (None) Potassium 3.3 L (3.5-5.1) meq/L Carbon Dioxide 32.3 H (21.0-32.0) meq/L BUN 23 H (7-18) mg/dL Creatinine 1.42 H (0.60-1.30) mg/dL Estimated GFR 47 L (>89) mL/min POC Glucose 155 H (68-110) mg/dl Short CBC 03/03/18 Range/Units 23:23 WBC 4.9 (4.0-11.0) th/mm3 Hgb 14.3 (13.0-17.0) gm/dL Hct 41.4 (39.0-51.0) % Plt Count 90 L (150-450) th/mm3 BMP 03/03/18 03/04/18 09:41 08:10 Sodium 137 138 Potassium 3.4 L 3.3 L Chloride 99 100 Carbon Dioxide 31.4 32.3 H BUN 24 H 23 H Creatinine 1.43 H 1.42 H Calcium 8.7 8.7 <Eko,Yolanda U - 03/04/18 10:51> Physical Exam Vital signs: Vital Signs 03/04/18 00:00 03/04/18 04:00 03/04/18 08:00 Temperature 97.6 F 97.1 F L 97.7 F Pulse Rate 66 69 64 Respiratory Rate 18 20 20 Blood Pressure 128/75 131/76 130/66 Pulse Oximetry 95 95 95 03/04/18 10:03 03/04/18 12:00 03/04/18 16:00 Temperature 97.6 F 97.3 F L Pulse Rate 51 L 62 Respiratory Rate 20 20 Blood Pressure 123/60 118/65 Pulse Oximetry 95 96 94 L 03/04/18 21:08 Temperature Pulse Rate Respiratory Rate Blood Pressure Pulse Oximetry 96 Intake & Output 03/04/18 03/04/18 03/05/18 06:59 18:59 06:59 Intake Total 1200 / 1200 480 / 480 Output Total 2500 / 2500 475 / 475 Balance -1300 / -1300 5 / 5 Weight 94.6 kg Intake: Oral 1200 / 1200 480 / 480 Output: Urine 2500 / 2500 475 / 475 Other: # Bowel Movements 1 <Gary Higginbotham - 03/04/18 21:11> Vital Signs 03/03/18 12:00 03/03/18 16:00 03/03/18 20:00 Temperature 97.6 F 97.5 F L 98.8 F Pulse Rate 56 L 71 70 Respiratory Rate 20 20 18 Blood Pressure 122/64 149/82 H 112/57 L Pulse Oximetry 95 94 L 92 L 03/04/18 00:00 03/04/18 04:00 03/04/18 08:00 Temperature 97.6 F 97.1 F L Pulse Rate 66 69 64 Respiratory Rate 18 20 Blood Pressure 128/75 131/76 Pulse Oximetry 95 95 03/04/18 10:03 Temperature Pulse Rate Respiratory Rate Blood Pressure Pulse Oximetry 95 Intake & Output 03/03/18 03/04/18 03/04/18 18:59 06:59 18:59 Intake Total 960 / 960 1200 / 1200 Output Total 1350 / 1350 2500 / 2500 Balance -390 / -390 -1300 / -1300 Weight 94.6 kg Intake: Oral 960 / 960 1200 / 1200 Output: Urine 1350 / 1350 2500 / 2500 <Yolanda Bradshaw - 03/04/18 10:51> Narrative: GENERAL: In NAD. Sitting up in a chair SKIN: Warm and dry. NECK: No JVD or lymphadenopathy. CARDIOVASCULAR: Irregular. 2/6 systolic murmur appreciated at the left sternal border. RESPIRATORY: Clear to auscultation bilaterally. No wheezes or rhonchi appreciated. GASTROINTESTINAL: Abdomen soft, non-tender, nondistended. Bowel sounds present. MUSCULOSKELETAL: No cyanosis, 1+ pitting edema to mid hsu. <Yolanda Bradshaw - 03/04/18 15:02> Assessment and Plan - Assessment (1) CHF exacerbation Code(s): I50.9 - Heart failure, unspecified Status: Chronic (2) Atrial fibrillation with slow ventricular response Code(s): I48.91 - Unspecified atrial fibrillation Status: Acute (3) Elevated serum creatinine Code(s): R79.89 - Other specified abnormal findings of blood chemistry Status : Acute (4) Subclinical hypothyroidism Code(s): E03.9 - Hypothyroidism, unspecified Status: Acute (5) Glaucoma Code(s): H40.9 - Unspecified glaucoma Status: Acute (6) Thrombocytopenia Code(s): D69.6 - Thrombocytopenia, unspecified Status: Acute (7) Diabetes Code(s): E11.9 - Type 2 diabetes mellitus without complications Status: Acute (8) DVT prophylaxis Status: Acute (9) Nutrition, metabolism, and development symptoms Code(s): R63.8 - Other symptoms and signs concerning food and fluid intake Status: Acute <Gary Higginbotham - 03/04/18 21:11> (1) CHF exacerbation Code(s): I50.9 - Heart failure, unspecified Status: Chronic Plan: -2D echo notable for EF of 20%, moderate concentric left ventricular hypertrophy , abnormal septal motion consistent with an intraventricular conduction delay, and global left ventricular dysfunction -Mostly normal lipid panel -Cardiology on board * Continue Coreg 6.25 mg twice daily * Continue hydralazine 25 mg TID * Continue isosorbide mononitrate 30 mg daily -Continue Lasix dose to 40 mg p.o. twice daily -Monitor daily BMP -Fluid restrict to 1.5 L daily -Strict I's and O's (2) Atrial fibrillation with slow ventricular response Code(s): I48.91 - Unspecified atrial fibrillation Status: Acute Plan: -Continue Coreg 6.25 mg twice daily -Continue Xarelto 15 mg p.o. daily (3) Elevated serum creatinine Code(s): R79.89 - Other specified abnormal findings of blood chemistry Status : Acute Plan: Unsure if this is his baseline. Possibly acute kidney injury from CHF exacerbation Trending down Avoid nephrotoxic drugs (4) Diabetes Code(s): E11.9 - Type 2 diabetes mellitus without complications Status: Acute Plan: HbA1c: 7.6 Low-dose sliding scale * Has required only 6 units of sliding scale throughout this admission Patient to be to DC home on metformin 250 mg BID (5) Subclinical hypothyroidism Code(s): E03.9 - Hypothyroidism, unspecified Status: Acute Plan: -TSH 6.650 on admission -Free T4 within normal limits at 0.92 -Not currently on thyroid hormone replacement -does not meet criteria -Recommend outpatient follow-up (6) Glaucoma Code(s): H40.9 - Unspecified glaucoma Status: Acute Plan: Continue home eyedrops (7) Thrombocytopenia Code(s): D69.6 - Thrombocytopenia, unspecified Status: Acute Plan: Stable Continue monitoring (8) DVT prophylaxis Status: Acute Plan: Patient is on Xarelto (9) Nutrition, metabolism, and development symptoms Code(s): R63.8 - Other symptoms and signs concerning food and fluid intake Status: Acute Plan: Fluids: Oral fluids only. Fluid restrict to 1.5 L Electrolytes: Monitor and replete as needed. Nutrition: Cardiac diet DNR/DNI <Yolanda Bradshaw U - 03/04/18 14:50> - Assessment and Plan 88-year-old male with past medical history of hyperlipidemia, CHF, irregular heartbeat presented with shortness of breath for the past couple weeks with a associated pedal edema that increased to his abdomen and associated decreased urinary output and frequency. Admitted for CHF exacerbation with elevated BNP. Patient found to be in A. fib with slow ventricular response. Cardiology was consulted and 2D echo performed. Found to have EF of 20% with global wall ventricular dysfunction. Started on Coreg, Isosorbide mononitrate and hydralazine. Started on Xarelto for stroke prophylaxis. <Yolanda Bradshaw U - 03/04/18 15:02> Discussed Condition With: Seen and examined with Dr. Balderas. Discussed with Dr. Higginbotham <Yolanda Bradshaw U - 03/04/18 15:02> Discharge Planning: Plan to discharge home today. Patient is doing much better, breathing has improved, pedal edema has improved. He is excited to go home. <Yolanda Bradshaw U - 03/04/18 15:02> - Attending Attestation Pt. examined independently from resident medical team this morning Pt. case discussed with resident medical team I have read the above note and agree with the assessment/plan as discussed with me I was involved in all medical decision making for this patient Gary Higginbotham MD <Gary Higginbotham - 03/04/18 21:11> <Yolanda Bradshaw U - Last Filed: 03/04/18 14:50> (1) CHF exacerbation Qualifiers: Heart failure type: systolic Qualified Code(s): I50.23 - Acute on chronic systolic (congestive) heart failure <Gary Higginbotham - Last Filed: 03/04/18 21:11> (1) CHF exacerbation Qualifiers: Heart failure type: systolic Qualified Code(s): I50.23 - Acute on chronic systolic (congestive) heart failure <Yolanda Bradshaw U - Last Filed: 03/04/18 14:50> (1) CHF exacerbation Qualifiers: Heart failure type: systolic Qualified Code(s): I50.23 - Acute on chronic systolic (congestive) heart failure <Gary Higginbotham - Last Filed: 03/04/18 21:11> (1) CHF exacerbation Qualifiers: Heart failure type: systolic Qualified Code(s): I50.23 - Acute on chronic systolic (congestive) heart failure
[2018-03-04] MEDS ORDERED: Acetaminophen 325 MG Tablet PO ONE (10:54)
--- NOTE | 2018-03-04 12:29 | P.PNCA ---
Subjective Interval history: Patient denies any CP, pressure, palpitations, dizziness or SOB. Patient does complain of LE edema that is improving. Medications and Allergies Allergies Allergy/AdvReac Type Severity Reaction Status Date / Time lisinopril [From Zestril] Allergy Swelling Verified 02/27/18 10:45 Penicillins Allergy Hives Verified 02/27/18 10:29 Home Medications Medication Instructions Recorded Confirmed Type aspirin 81 mg PO DAILY 02/27/18 02/27/18 History brimonidine 1 drp OPHTHALMIC (EYE) BID 02/27/18 02/27/18 History carvedilol 6.25 mg PO BID 02/27/18 02/27/18 History ferrous sulfate 325 mg PO DAILY 02/27/18 02/27/18 History finasteride 5 mg PO DAILY 02/27/18 02/27/18 History latanoprost 1 drp OPHTHALMIC (EYE) QPM 02/27/18 02/27/18 History nhadjysw-thl-RA-lycopen-lutein 1 tab PO DAILY 02/27/18 02/27/18 History [Centrum Silver Men] potassium chloride 10 meq PO DAILY 02/27/18 02/27/18 History potassium gluconate 550 mg PO DAILY 02/27/18 02/27/18 History simvastatin 80 mg PO QPM 02/27/18 02/27/18 History tamsulosin 0.4 mg PO DAILY 02/27/18 02/27/18 History Active Medications: Active Medications Acetaminophen (Tylenol) 650 mg PO Q4H PRN PRN Reason: Temp > 100.4 Al Hydroxide/Mg Hydroxide (Milk Of Magnrebel Liq) 30 ml PO Q12H PRN PRN Reason: Mild Constipation Atorvastatin Calcium (Lipitor) 40 mg PO DAILY@1800 [facility] Last Admin: 03/03/18 18:40 Dose: 40 mg Bisacodyl (Dulcolax Supp) 10 mg RECTAL DAILY PRN PRN Reason: SEVERE CONSITIPATION Brimonidine Tartrate (Alphagan 0.2% Opth Drops) 1 drops EACH EYE BID [facility] Last Admin: 03/04/18 09:13 Dose: 1 drops Carvedilol (Coreg) 6.25 mg PO BID [facility] Last Admin: 03/04/18 09:13 Dose: Not Given Dextrose (D50w Vial) 50 ml IV.PUSH UNSCH PRN PRN Reason: PER HYPOGLYCEMIA PROTOCOL Ferrous Sulfate (Ferosul) 325 mg PO DAILY [facility] Last Admin: 03/04/18 09:12 Dose: 325 mg Finasteride (Proscar) 5 mg PO DAILY [facility] Last Admin: 03/04/18 09:12 Dose: 5 mg Furosemide (Lasix) 80 mg PO BID@0900,1800 [facility] Last Admin: 03/04/18 09:12 Dose: 80 mg Glucagon (Glucagon Inj) 1 mg OTHER PRN PRN PRN Reason: for Hypoglycemia Protocol Hydralazine HCl (Apresoline) 25 mg PO TID [facility] Last Admin: 03/04/18 09:12 Dose: 25 mg Insulin Aspart (Novolog Insulin Correctional Sugar Inj) 0 unit SQ ACHS [facility]; Protocol Last Admin: 03/04/18 11:56 Dose: 1 unit Isosorbide Mononitrate (Imdur) 30 mg PO DAILY@0700 [facility] Last Admin: 03/04/18 06:20 Dose: 30 mg Lactulose (Lactulose Liq) 30 ml PO DAILY PRN PRN Reason: SEVERE CONSITIPATION Latanoprost (Xalatan 0.005% Opth Drops) 1 drop EACH EYE DAILY@1800 [facility] Last Admin: 03/03/18 18:40 Dose: 1 drop Multivitamins/Minerals (Theragran-M) 1 tab PO DAILY [facility] Last Admin: 03/04/18 09:12 Dose: 1 tab Ondansetron HCl (Zofran Inj) 4 mg IV.PUSH Q6H PRN PRN Reason: NAUSEA OR VOMITING Rivaroxaban (Xarelto) 15 mg PO DAILY [facility] Last Admin: 03/04/18 09:12 Dose: 15 mg Senna/Docusate Sodium (Mary-Colace) 1 tab PO BID [facility] Last Admin: 03/04/18 09:12 Dose: 1 tab Sennosides (Senokot) 17.2 mg PO Q12H PRN PRN Reason: Moderate Constipation Sodium Chloride (Ns Flush) 2 ml IV.FLUSH BID [facility] Last Admin: 03/04/18 09:13 Dose: 2 ml Sodium Chloride (Ns Flush) 2 ml IV.FLUSH PRN PRN PRN Reason: FLUSH AFTER USING IV ACCESS Tamsulosin HCl (Flomax) 0.4 mg PO DAILY [facility] Last Admin: 03/04/18 09:12 Dose: 0.4 mg Physical Exam Vital signs: Vital Signs 03/03/18 16:00 03/03/18 20:00 03/04/18 00:00 Temperature 97.5 F L 98.8 F 97.6 F Pulse Rate 71 70 66 Respiratory Rate 20 18 18 Blood Pressure 149/82 H 112/57 L 128/75 Pulse Oximetry 94 L 92 L 95 03/04/18 04:00 03/04/18 08:00 03/04/18 10:03 Temperature 97.1 F L Pulse Rate 69 64 Respiratory Rate 20 Blood Pressure 131/76 Pulse Oximetry 95 95 Intake & Output 03/03/18 03/04/18 03/04/18 18:59 06:59 18:59 Intake Total 960 / 960 1200 / 1200 Output Total 1350 / 1350 2500 / 2500 Balance -390 / -390 -1300 / -1300 Weight 94.6 kg Intake: Oral 960 / 960 1200 / 1200 Output: Urine 1350 / 1350 2500 / 2500 - Constitutional no acute distress - Routine HEENT Exam Head: Present: normocephalic Eye: Present: PERRL ENT: Present: mucous membranes moist - Routine Neck Exam Present: full ROM - Routine Respiratory Exam Present: CTA bilaterally - Routine Cardiovascular Exam Present: S1, S2, bradycardia, irregular rhythm Comments: PVC's - Routine Abdominal Exam Present: normoactive bowel sounds - Routine Extremities Exam Present: edema, full ROM, pulses intact, normal capillary refill. Absent: cyanosis, clubbing - Routine Skin Exam Present: intact - Routine Neurological Exam Present: oriented X3 - Detailed Neurological Exam: Coma Scale Eye Opening: Spontaneous Verbal Response: Oriented Motor Response: Obey commands Alejandro Coma Scale Total: 15 - Routine Psychiatric Exam Present: normal affect Results 03/03/18 23:23 03/04/18 08:10 CBC 03/03/18 Range/Units 23:23 WBC 4.9 (4.0-11.0) th/mm3 RBC 4.24 L (4.50-5.90) mil/mm3 Hgb 14.3 (13.0-17.0) gm/dL Hct 41.4 (39.0-51.0) % Plt Count 90 L (150-450) th/mm3 Neut # (Auto) 3.3 (1.8-7.7) th/mm3 Lymph # (Auto) 0.7 L (1.0-4.8) th/mm3 [place] # (Auto) 0.7 (0.0-0.9) th/mm3 Eos # (Auto) 0.1 (0.0-0.4) th/mm3 Baso # (Auto) 0.1 (0.0-0.2) th/mm3 Comprehensive Metabolic Panel 03/02/18 03/03/18 03/04/18 Range/Units 06:26 09:41 08:10 Sodium 137 138 (136-145) meq/L Potassium 3.4 L 3.3 L (3.5-5.1) meq/L Chloride 99 100 (98-107) meq/L Carbon Dioxide 31.4 32.3 H (21.0-32.0) meq/L BUN 24 H 23 H (7-18) mg/dL Creatinine 1.43 H 1.42 H (0.60-1.30) mg/dL Calcium 8.7 8.7 (8.5-10.1) mg/dL Albumin 2.9 L (3.4-5.0) g/dL Intake and Output 03/03/18 03/04/18 03/04/18 22:59 06:59 14:59 Intake Total 960 / 960 1200 / 1200 Output Total 1350 / 1350 2500 / 2500 Balance -390 / -390 -1300 / -1300 Intake: Oral 960 / 960 1200 / 1200 Output: Urine 1350 / 1350 2500 / 2500 Other: Weight 94.6 kg Assessment and Plan - Assessment (1) CHF exacerbation Code(s): I50.9 - Heart failure, unspecified Status: Chronic (2) Atrial fibrillation with slow ventricular response Code(s): I48.91 - Unspecified atrial fibrillation Status: Acute (3) Edema Code(s): R60.9 - Edema, unspecified Status: Acute - Plan No new cardiac issues at this time. Good progress. We will continue with current cardiac treatment plan. Continue with current CHF treatment plan including Coreg, Imdur and hydralazine. Patient remains in atrial fibrillation with slow ventricular response, continue anticoagulation with Xarelto. Patient's renal function is slightly improved, we will continue diuresis with Lasix 40 mg. We will continue to monitor the patient during his hospitalization. The patient was seen and evaluated by Dr. Tipton who participated in care, management and decision making. - Attending Attestation Patient seen and examined. I reviewed and agree with the evaluation and plan as presented. Continue tx for CHF. Increase activity. Anticipate discharge soon. F/ u with a grating machine operator in [place] as planned. (1) CHF exacerbation Qualifiers: Heart failure type: systolic Qualified Code(s): I50.23 - Acute on chronic systolic (congestive) heart failure
--- NOTE | 2018-03-04 15:02 | P.DS ---
Date of admission: 02/27/18 12:25 Primary care physician: Harrison Guerrero Brief History from admission: 88 year old male presents with SOB that started several weeks ago around rachel. He started having leg swelling over these weeks but last night the swelling extended to his thighs and abdomens. He also had weight gain of 15 lbs in the past couple of weeks. He notices that he becomes SOB when he walks and when he sits up he notices more abdominal distention. Unable to sleep on his back, only sleeps on his left or ride side with one pillow. Coughs up yellowish phlegm occasionally. No fevers. He has been taking his Lasix 40 mg daily but he has decreased in urinary output. Denies any problems starting or maintaining a stream. Says that his urinary frequency has decreased as well. Urinary frequency has decreased from 6 times a day to 2 times a day. Denies any blood in the urine. Normally urinates twice as night and this has not changed. Denies any CP but confirms abdominal swelling. Denies any leg pain, just discomfort from swelling. Moved from [place] a year ago and saw a iron plastic bullet maker every 6 months but has not seen one since then. PCP: trying to find one in [place]. PMH: BPH, Hyperlipidemia, irregular heart rate, glaucoma, CHF PSH: Open Heart Surgery, two prostate surgeries, hemorrhoids removal. A: Penicillin ( hives), Lisinopril ( angioedema) Meds: reconciled. Takes 1/2 of his carvedilol in the morning and the other half at night for a total of 6.25 mg daily. Social Hx: lives in an apartment complex alone. Denies smoking of cigarettes, denies alcohol use, no drug use. Recently flew to [place] July of this year. Drove to [place] [employer] [place] ( 8 hour trip). Retired. Fam Hx: Brother had cancer ( unsure of which one). Son has Afib with mitral heart valve recently fixed. DS: Diagnosis - Discharge Diagnosis (1) CHF exacerbation Status: Chronic (2) Atrial fibrillation with slow ventricular response Status: Acute (3) Elevated serum creatinine Status: Acute (4) Subclinical hypothyroidism Status: Acute (5) Glaucoma Status: Acute (6) Thrombocytopenia Status: Acute (7) Diabetes Status: Acute (8) DVT prophylaxis Status: Acute (9) Nutrition, metabolism, and development symptoms Status: Acute DS: Medications - Discharge Medications Prescriptions: furosemide 40 mg PO BID 3 Days #60 tab hydralazine 25 mg PO TID #90 tab isosorbide mononitrate 30 mg PO DAILY@0700 #30 tab metformin 250 mg PO BID #60 tab rivaroxaban [Xarelto] 15 mg PO DAILY #30 tab DS: Summary Hospital Course: 88-year-old male with past medical history of hyperlipidemia, CHF, irregular heartbeat presents with shortness of breath for the past couple weeks with a associated pedal edema that increased to his abdomen and associated decreased urinary output and frequency. Admitted for CHF exacerbation with elevated BNP. Patient found to be in A. fib with slow ventricular response. Cardiology consulted and 2D echo performed. Found to have EF of 20% with global wall ventricular dysfunction. Started on Coreg, Isosorbide mononitrate, xarelto and hydralazine. Patient diuresed on Lasix 40 mg twice daily. Patient was also diagnosed with diabetes with an A1c of 7.6. He was discharged home on Xarelto, Coreg, isosorbide mononitrate, hydralazine, Lasix 40 mg twice daily and metformin 250 mg twice daily. Advised to follow-up with his PCP and iron plastic bullet maker. - Time Spent with Patient Total time spent providing and/or coordinating discharge services: Less than 30 minutes - Quality: VTE Deep Vein Thrombosis/Pulmonary Embolism Present on Admission: No Exam Vital signs: Vital Signs 03/03/18 16:00 03/03/18 20:00 03/04/18 00:00 Temperature 97.5 F L 98.8 F 97.6 F Pulse Rate 71 70 66 Respiratory Rate 20 18 18 Blood Pressure 149/82 H 112/57 L 128/75 Pulse Oximetry 94 L 92 L 95 03/04/18 04:00 03/04/18 08:00 03/04/18 10:03 Temperature 97.1 F L Pulse Rate 69 64 Respiratory Rate 20 Blood Pressure 131/76 Pulse Oximetry 95 95 Intake & Output 03/03/18 03/04/18 03/04/18 18:59 06:59 18:59 Intake Total 960 / 960 1200 / 1200 Output Total 1350 / 1350 2500 / 2500 Balance -390 / -390 -1300 / -1300 Weight 94.6 kg Intake: Oral 960 / 960 1200 / 1200 Output: Urine 1350 / 1350 2500 / 2500 Narrative: GENERAL: In NAD. Sitting up in a chair SKIN: Warm and dry. NECK: No JVD or lymphadenopathy. CARDIOVASCULAR: Irregular. 2/6 systolic murmur appreciated at the left sternal border. RESPIRATORY: Clear to auscultation bilaterally. No wheezes or rhonchi appreciated. GASTROINTESTINAL: Abdomen soft, non-tender, nondistended. Bowel sounds present. MUSCULOSKELETAL: No cyanosis, 1+ pitting edema to mid hsu. Results Procedures completed during hospitalization: none Labs on day of discharge: Labs from last 24 hours 03/04/18 03/04/18 03/04/18 11:48 08:10 07:21 WBC RBC Hgb Hct MCV MCH MCHC RDW Plt Count MPV Prelim Diff (Auto) Neut % (Auto) Lymph % (Auto) Josephine % (Auto) Eos % (Auto) Baso % (Auto) Neut # (Auto) Lymph # (Auto) Josephine # (Auto) Eos # (Auto) Baso # (Auto) WBC Differential Diff Scan Differential Comment Platelet Estimate Platelet Morphology Ovalocytes Sodium 138 Potassium 3.3 L Chloride 100 Carbon Dioxide 32.3 H Anion Gap 6 BUN 23 H Creatinine 1.42 H Estimated GFR 47 L POC Glucose 174 H 107 Random Glucose 105 Calcium 8.7 03/03/18 03/03/18 03/03/18 23:23 19:53 16:46 WBC 4.9 RBC 4.24 L Hgb 14.3 Hct 41.4 MCV 97.7 MCH 33.7 MCHC 34.5 RDW 17.3 H Plt Count 90 L MPV 10.2 Prelim Diff (Auto) Slide review pending Neut % (Auto) 67.3 Lymph % (Auto) 14.6 Josephine % (Auto) 14.9 H Eos % (Auto) 2.1 Baso % (Auto) 1.1 Neut # (Auto) 3.3 Lymph # (Auto) 0.7 L Josephine # (Auto) 0.7 Eos # (Auto) 0.1 Baso # (Auto) 0.1 WBC Differential . Diff Scan Auto diff confirmed Differential Comment . Platelet Estimate Low L Platelet Morphology Normal Ovalocytes 1+ H Sodium Potassium Chloride Carbon Dioxide Anion Gap BUN Creatinine Estimated GFR POC Glucose 155 H 135 H Random Glucose Calcium - Impressions ITS Impressions Chest X-Ray 02/27/18 10:41 CONCLUSION: Moderate cardiomegaly with no evidence of pulmonary edema. Discharge Plan - Discharge Disposition Patient Disposition: 01 Discharge Home - Discharge Condition Condition: Stable - Discharge Order Discharge Orders: Discharge Order (Routine); Ordered 03/04/18 Ordered By: Madonna Quach ED Use Only Admit Order (Routine); Ordered 02/27/18 Ordered By: Michael Pierre - Discharge Details Discharge Comment: Limit water intake to 1.5 L daily. Limit Salt intake to 2 to 3 grams daily. - Physicians Team Attending Provider: Gary Higginbotham Other Providers: Irais Tipton MD
[2018-03-04] MEDS: Latanoprost 0.005% Opth Drops 2.5 ML Bottle EACH EYE SCH (18:25)
[2018-03-05] MEDS: Isosorbide Mononitrate 30 MG ER 24HR Tablet (Imdur) PO SCH (06:08)
[2018-03-05] MEDS: Insulin NovoLOG Aspart Correctional Sugar Inj SQ SCH (08:26)
--- NOTE | 2018-03-05 08:37 | P.PNCA ---
Subjective Interval history: Patient denies any CP, pressure, palpitations, dizziness or SOB. Patient continues to complain of LE edema that is slowly improving. Medications and Allergies Allergies Allergy/AdvReac Type Severity Reaction Status Date / Time lisinopril [From Zestril] Allergy Swelling Verified 02/27/18 10:45 Penicillins Allergy Hives Verified 02/27/18 10:29 Home Medications Medication Instructions Recorded Confirmed Type aspirin 81 mg PO DAILY 02/27/18 02/27/18 History brimonidine 1 drp OPHTHALMIC (EYE) BID 02/27/18 02/27/18 History carvedilol 6.25 mg PO BID 02/27/18 02/27/18 History ferrous sulfate 325 mg PO DAILY 02/27/18 02/27/18 History finasteride 5 mg PO DAILY 02/27/18 02/27/18 History latanoprost 1 drp OPHTHALMIC (EYE) QPM 02/27/18 02/27/18 History truaotfi-sdi-IL-lycopen-lutein 1 tab PO DAILY 02/27/18 02/27/18 History [Centrum Silver Men] potassium chloride 10 meq PO DAILY 02/27/18 02/27/18 History potassium gluconate 550 mg PO DAILY 02/27/18 02/27/18 History simvastatin 80 mg PO QPM 02/27/18 02/27/18 History tamsulosin 0.4 mg PO DAILY 02/27/18 02/27/18 History Active Medications: Active Medications Acetaminophen (Tylenol) 650 mg PO Q4H PRN PRN Reason: Temp > 100.4 Al Hydroxide/Mg Hydroxide (Milk Of Kaye Liq) 30 ml PO Q12H PRN PRN Reason: Mild Constipation Atorvastatin Calcium (Lipitor) 40 mg PO DAILY@1800 [facility] Last Admin: 03/04/18 18:25 Dose: 40 mg Bisacodyl (Dulcolax Supp) 10 mg RECTAL DAILY PRN PRN Reason: SEVERE CONSITIPATION Brimonidine Tartrate (Alphagan 0.2% Opth Drops) 1 drops EACH EYE BID [facility] Last Admin: 03/04/18 21:45 Dose: 1 drops Carvedilol (Coreg) 6.25 mg PO BID [facility] Last Admin: 03/04/18 21:45 Dose: 6.25 mg Dextrose (D50w Vial) 50 ml IV.PUSH UNSCH PRN PRN Reason: PER HYPOGLYCEMIA PROTOCOL Ferrous Sulfate (Ferosul) 325 mg PO DAILY [facility] Last Admin: 03/04/18 09:12 Dose: 325 mg Finasteride (Proscar) 5 mg PO DAILY [facility] Last Admin: 03/04/18 09:12 Dose: 5 mg Furosemide (Lasix) 80 mg PO BID@0900,1800 [facility] Last Admin: 03/04/18 18:25 Dose: 80 mg Glucagon (Glucagon Inj) 1 mg OTHER PRN PRN PRN Reason: for Hypoglycemia Protocol Hydralazine HCl (Apresoline) 25 mg PO TID [facility] Last Admin: 03/04/18 18:25 Dose: 25 mg Insulin Aspart (Novolog Insulin Correctional Sugar Inj) 0 unit SQ ACHS [facility]; Protocol Last Admin: 03/05/18 08:26 Dose: Not Given Isosorbide Mononitrate (Imdur) 30 mg PO DAILY@0700 [facility] Last Admin: 03/05/18 06:08 Dose: 30 mg Lactulose (Lactulose Liq) 30 ml PO DAILY PRN PRN Reason: SEVERE CONSITIPATION Latanoprost (Xalatan 0.005% Opth Drops) 1 drop EACH EYE DAILY@1800 [facility] Last Admin: 03/04/18 18:25 Dose: 1 drop Multivitamins/Minerals (Theragran-M) 1 tab PO DAILY [facility] Last Admin: 03/04/18 09:12 Dose: 1 tab Ondansetron HCl (Zofran Inj) 4 mg IV.PUSH Q6H PRN PRN Reason: NAUSEA OR VOMITING Rivaroxaban (Xarelto) 15 mg PO DAILY [facility] Last Admin: 03/04/18 09:12 Dose: 15 mg Senna/Docusate Sodium (Mary-Colace) 1 tab PO BID [facility] Last Admin: 03/04/18 21:45 Dose: Not Given Sennosides (Senokot) 17.2 mg PO Q12H PRN PRN Reason: Moderate Constipation Sodium Chloride (Ns Flush) 2 ml IV.FLUSH BID [facility] Last Admin: 03/04/18 21:45 Dose: 2 ml Sodium Chloride (Ns Flush) 2 ml IV.FLUSH PRN PRN PRN Reason: FLUSH AFTER USING IV ACCESS Tamsulosin HCl (Flomax) 0.4 mg PO DAILY [facility] Last Admin: 03/04/18 09:12 Dose: 0.4 mg Physical Exam Vital signs: Vital Signs 03/04/18 10:03 03/04/18 12:00 03/04/18 16:00 Temperature 97.6 F 97.3 F L Pulse Rate 51 L 62 Respiratory Rate 20 20 Blood Pressure 123/60 118/65 Pulse Oximetry 95 96 94 L 03/04/18 20:00 03/04/18 21:08 03/05/18 00:00 Temperature 97.5 F L Pulse Rate 60 52 L Respiratory Rate 20 Blood Pressure 109/63 Pulse Oximetry 96 93 L 03/05/18 04:00 Temperature 97.7 F Pulse Rate 64 Respiratory Rate 20 Blood Pressure 128/75 Pulse Oximetry 96 Intake & Output 03/04/18 03/05/18 03/05/18 18:59 06:59 18:59 Intake Total 480 / 480 Output Total 475 / 475 Balance 5 / 5 Weight 93.2 kg Intake: Oral 480 / 480 Output: Urine 475 / 475 Other: Date of Last Bowel Movement 03/04/18 # Bowel Movements 1 - Constitutional no acute distress - Routine HEENT Exam Head: Present: normocephalic Eye: Present: PERRL ENT: Present: mucous membranes moist - Routine Neck Exam Present: full ROM - Routine Respiratory Exam Present: crackles Comments: fine crackles in the bases bilaterally. - Routine Cardiovascular Exam Present: S1, S2, bradycardia, irregular rhythm - Routine Abdominal Exam Present: normoactive bowel sounds - Routine Extremities Exam Present: edema, full ROM, pulses intact, normal capillary refill. Absent: cyanosis, clubbing - Routine Skin Exam Present: intact - Routine Neurological Exam Present: oriented X3 - Detailed Neurological Exam: Coma Scale Eye Opening: Spontaneous Verbal Response: Oriented Motor Response: Obey commands [place] Coma Scale Total: 15 - Routine Psychiatric Exam Present: normal affect Results 03/03/18 23:23 03/04/18 08:10 CBC 03/03/18 Range/Units 23:23 WBC 4.9 (4.0-11.0) th/mm3 RBC 4.24 L (4.50-5.90) mil/mm3 Hgb 14.3 (13.0-17.0) gm/dL Hct 41.4 (39.0-51.0) % Plt Count 90 L (150-450) th/mm3 Neut # (Auto) 3.3 (1.8-7.7) th/mm3 Lymph # (Auto) 0.7 L (1.0-4.8) th/mm3 [place] # (Auto) 0.7 (0.0-0.9) th/mm3 Eos # (Auto) 0.1 (0.0-0.4) th/mm3 Baso # (Auto) 0.1 (0.0-0.2) th/mm3 Comprehensive Metabolic Panel 03/03/18 03/04/18 Range/Units 09:41 08:10 Sodium 137 138 (136-145) meq/L Potassium 3.4 L 3.3 L (3.5-5.1) meq/L Chloride 99 100 (98-107) meq/L Carbon Dioxide 31.4 32.3 H (21.0-32.0) meq/L BUN 24 H 23 H (7-18) mg/dL Creatinine 1.43 H 1.42 H (0.60-1.30) mg/dL Calcium 8.7 8.7 (8.5-10.1) mg/dL Intake and Output 03/04/18 03/05/18 03/05/18 22:59 06:59 14:59 Intake Total 480 / 480 Output Total 475 / 475 Balance 5 / 5 Intake: Oral 480 / 480 Output: Urine 475 / 475 Other: Date of Last Bowel Movement 03/04/18 # Bowel Movements 1 Weight 93.2 kg Assessment and Plan - Assessment (1) CHF exacerbation Code(s): I50.9 - Heart failure, unspecified Status: Chronic (2) Atrial fibrillation with slow ventricular response Code(s): I48.91 - Unspecified atrial fibrillation Status: Acute (3) Edema Code(s): R60.9 - Edema, unspecified Status: Acute - Plan Continue tx for CHF including diuresis with Lasix. Patient remains in atrial fib with a slow ventricular response, asymptomatic. We will continue with current treatment plan. Patient is cleared for discharge from a cardiology standpoint. We will continue to monitor the patient during his hospitalization. The patient was seen and evaluated by Dr. Tipton who participated in care, management and decision making. - Attending Attestation Patient seen and examined. I reviewed and agree with the evaluation and plan as presented. Continue tx for CHF. DC home. F/u with his reconstructive dentist in [place]. (1) CHF exacerbation Qualifiers: Heart failure type: systolic Qualified Code(s): I50.23 - Acute on chronic systolic (congestive) heart failure
[2018-03-05] MEDS: Senna/Docusate Sodium 8.6/50 MG Tablet PO SCH (09:02)
[2018-03-05] MEDS: Multivitamin/Minerals Therapeutic Tablet PO SCH (09:02)
[2018-03-05] MEDS: Ferrous Sulfate 325 MG Tablet PO SCH (09:02)
[2018-03-05] MEDS: Carvedilol 6.25 MG Tablet PO SCH (09:03)
[2018-03-05] MEDS: Furosemide 80 MG Tablet PO SCH (09:03)
[2018-03-05] MEDS: Rivaroxaban 15 MG Tablet PO SCH (09:03)
[2018-03-05] MEDS: Finasteride 5 MG Tablet PO SCH (09:03)
[2018-03-05] MEDS: hydrALAZINE 25 MG Tablet PO SCH (09:04)
[2018-03-05] MEDS: Brimonidine 0.2% Opth Drops 5 ML Bottle EACH EYE SCH (09:05)
--- NOTE | 2018-03-05 09:56 | P.PNFP ---
Subjective Interval history: Patient feeling well today, ready to go home. Was to be discharged yesterday but held for continued cardiac monitoring and tx for CHF. Cleared for home today by cardiology <Brittaney Berry - 03/05/18 09:55> Results - Labs Result diagrams: 03/03/18 23:23 03/04/18 08:10 <Gary Higginbotham - 03/05/18 17:08> Abnormal lab results 03/04/18 03/05/18 Range/Units 20:07 07:21 POC Glucose 140 H 120 H (68-110) mg/dl <Gary Higginbotham - 03/05/18 17:08> Abnormal lab results 03/04/18 03/04/18 03/04/18 Range/Units 11:48 16:08 20:07 POC Glucose 174 H 139 H 140 H (68-110) mg/dl 03/05/18 Range/Units 07:21 POC Glucose 120 H (68-110) mg/dl <Brittaney Berry - 03/05/18 09:55> Physical Exam Vital signs: Vital Signs 03/04/18 20:00 03/04/18 21:08 03/05/18 00:00 Temperature 97.5 F L Pulse Rate 60 52 L Respiratory Rate 20 Blood Pressure 109/63 Pulse Oximetry 96 93 L 03/05/18 04:00 03/05/18 08:00 Temperature 97.7 F 97.4 F L Pulse Rate 64 90 Respiratory Rate 20 18 Blood Pressure 128/75 149/85 H Pulse Oximetry 96 94 L Intake & Output 03/04/18 03/05/18 03/05/18 18:59 06:59 18:59 Intake Total 480 / 480 380 / 380 Output Total 475 / 475 1400 / 1400 Balance 5 / 5 -1020 / -1020 Weight 93.2 kg Intake: Oral 480 / 480 380 / 380 Output: Urine 475 / 475 1400 / 1400 Other: Date of Last Bowel Movement 03/04/18 03/04/18 # Bowel Movements 1 1 <Gary Higginbotham - 03/05/18 17:08> Vital Signs 03/04/18 10:03 03/04/18 12:00 03/04/18 16:00 Temperature 97.6 F 97.3 F L Pulse Rate 51 L 62 Respiratory Rate 20 20 Blood Pressure 123/60 118/65 Pulse Oximetry 95 96 94 L 03/04/18 20:00 03/04/18 21:08 03/05/18 00:00 Temperature 97.5 F L Pulse Rate 60 52 L Respiratory Rate 20 Blood Pressure 109/63 Pulse Oximetry 96 93 L 03/05/18 04:00 Temperature 97.7 F Pulse Rate 64 Respiratory Rate 20 Blood Pressure 128/75 Pulse Oximetry 96 Intake & Output 03/04/18 03/05/18 03/05/18 18:59 06:59 18:59 Intake Total 480 / 480 Output Total 475 / 475 Balance 5 / 5 Weight 93.2 kg Intake: Oral 480 / 480 Output: Urine 475 / 475 Other: Date of Last Bowel Movement 03/04/18 # Bowel Movements 1 <Brittaney Berry - 03/05/18 09:55> Narrative: GENERAL: In NAD. Sitting up in a chair SKIN: Warm and dry. NECK: No JVD or lymphadenopathy. CARDIOVASCULAR: Irregular. RESPIRATORY: Occasional crackles bilaterally. Good inspiratory air flow. GASTROINTESTINAL: Abdomen soft, non-tender, nondistended. Bowel sounds present. MUSCULOSKELETAL: No cyanosis, 1+ pitting edema to mid hsu. <Suzyflavio Brittaney Vicente - 03/05/18 09:55> Assessment and Plan - Assessment (1) CHF exacerbation Code(s): I50.9 - Heart failure, unspecified Status: Chronic (2) Atrial fibrillation with slow ventricular response Code(s): I48.91 - Unspecified atrial fibrillation Status: Acute (3) Elevated serum creatinine Code(s): R79.89 - Other specified abnormal findings of blood chemistry Status : Acute (4) Subclinical hypothyroidism Code(s): E03.9 - Hypothyroidism, unspecified Status: Acute (5) Glaucoma Code(s): H40.9 - Unspecified glaucoma Status: Acute (6) Thrombocytopenia Code(s): D69.6 - Thrombocytopenia, unspecified Status: Acute (7) Diabetes Code(s): E11.9 - Type 2 diabetes mellitus without complications Status: Acute (8) DVT prophylaxis Status: Acute (9) Nutrition, metabolism, and development symptoms Code(s): R63.8 - Other symptoms and signs concerning food and fluid intake Status: Acute <Gary Higginbotham - 03/05/18 17:08> (1) CHF exacerbation Code(s): I50.9 - Heart failure, unspecified Status: Chronic Plan: -2D echo notable for EF of 20%, moderate concentric left ventricular hypertrophy , abnormal septal motion consistent with an intraventricular conduction delay, and global left ventricular dysfunction -Cardiology on board * Continue Coreg 6.25 mg twice daily * Continue hydralazine 25 mg TID * Continue isosorbide mononitrate 30 mg daily -Continue Lasix dose to 40 mg p.o. twice daily outpatient (2) Atrial fibrillation with slow ventricular response Code(s): I48.91 - Unspecified atrial fibrillation Status: Acute Plan: -Continue Coreg 6.25 mg twice daily -Continue Xarelto 15 mg p.o. daily (3) Elevated serum creatinine Code(s): R79.89 - Other specified abnormal findings of blood chemistry Status : Acute Plan: Possibly acute kidney injury from CHF exacerbation Baseline undetermined. Con't monitoring outpatient w/BMP in 1 week (4) Subclinical hypothyroidism Code(s): E03.9 - Hypothyroidism, unspecified Status: Acute Plan: -TSH 6.650 on admission -Free T4 within normal limits at 0.92 -Not currently on thyroid hormone replacement -does not meet criteria -Recommend outpatient follow-up (5) Glaucoma Code(s): H40.9 - Unspecified glaucoma Status: Acute Plan: Continue home eyedrops (6) Thrombocytopenia Code(s): D69.6 - Thrombocytopenia, unspecified Status: Acute Plan: Stable Continue monitoring (7) Diabetes Code(s): E11.9 - Type 2 diabetes mellitus without complications Status: Acute Plan: HbA1c: 7.6 DC home on metformin 250 mg BID (8) DVT prophylaxis Status: Acute Plan: Patient is on Xarelto (9) Nutrition, metabolism, and development symptoms Code(s): R63.8 - Other symptoms and signs concerning food and fluid intake Status: Acute Plan: Fluids: Oral fluids only. Fluid restrict to 1.5 L Electrolytes: Monitor and replete as needed. Nutrition: Cardiac diet DNR/DNI <AbiBrittaney Mckinney N - 03/05/18 09:49> - Assessment and Plan Discharge Planning: Home today <AbiBrittaney Mckinney N - 03/05/18 09:55> - Attending Attestation Patient case discussed with resident physicians I have independently examined the patient I have read the above note and agree with the assessment and plan as discussed with me I was involved in all medical decision making for this patient Gary Higginbotham MD <Gary Higginbotham - 03/05/18 17:08> <Abiflavio Vicente,Brittaney N - Last Filed: 03/05/18 09:49> (1) CHF exacerbation Qualifiers: Heart failure type: systolic Qualified Code(s): I50.23 - Acute on chronic systolic (congestive) heart failure <Gary Higginbotham - Last Filed: 03/05/18 17:08> (1) CHF exacerbation Qualifiers: Heart failure type: systolic Qualified Code(s): I50.23 - Acute on chronic systolic (congestive) heart failure <Brittaney Berry N - Last Filed: 03/05/18 09:49> (1) CHF exacerbation Qualifiers: Heart failure type: systolic Qualified Code(s): I50.23 - Acute on chronic systolic (congestive) heart failure <Gary Higginbotham - Last Filed: 03/05/18 17:08> (1) CHF exacerbation Qualifiers: Heart failure type: systolic Qualified Code(s): I50.23 - Acute on chronic systolic (congestive) heart failure
== END 2018-03-05 10:54 | disposition home or self-care (01) ==
LOC: NEPE 10:22 → NEDA 12:25 → N04 17:00
PROVIDERS: ADMIT Family Medicine; ATTEND Family Medicine